=== PATIENT | female | born 1985 | race Hispanic/Latino ===

== ENCOUNTER 2024-01-27 15:16 | Observation (INO) | payer BC, OTHER ==
--- OUTSIDE RECORDS SUMMARY | 2024-01-27 15:22 | XMS REPORT | Continuity of Care Document ---
Author Name Unknown Address [address] [facility] [address] [place] [address] [facility] Address [address] [facility] [address] [place] [address] Care Team Providers Care Nurse Navigator Name Role Phone Unknown, Physician Primary Care Physician Unadiana Odell [facility] Attending Clinician Unavailable ENID CUENCA Attending Clinician Unavailable ENID CUENCA Attending Clinician Unavailable Enid Cuenca MD Attending Clinician [phone] Harlan Hanna Attending Clinician [phone] Lab, Myles Michel Attending Clinician Unavailable HARLAN FORBES Attending Clinician Unavailable CLYDE ESCOBAR Attending Clinician Unavailab le Doctor Unassigned, [place] Attending Clinician U YAJAIRA Dacosta Attending Clinician Unavailable Yajaira Alex Attending Clinician [phone] Lab, Ang Valentin Db Attending Clinician Unavailable Unknown, Attending Attending Clinician Unavailab LETY Mir Attending Clinician Unavailable Lety Escobar PA-C Attending Clinician [phone] HERBERT BAILEY Attending Clinician Unavailable Rose Johnson MD Attending Clinician [phone] ROSE JOHNSON Attending Clinician Unavailable Henrique Chowdhury CRNA Attending Clinician [phone] Betty SAAVEDRA, Garcia Pickering Attending Clinician [phone] Pob, Adc Lab Main Attending Clinician Akash Montesinos NP, Lex Attending Clinician [phone] LEX MONTESINOS Attending Clinician Edwin duffy P[facility], [facility] Attending Clinician UnaNadya Rogers MD Attending Clinician NADYA HEART Attending Clinician Hannah berna Lovell RN, Jess S Attending Clinician Jarod Perez MD Attending Clinician [phone] JAROD LOPES Attending Clinician Unavailable ROSE JOHNSON Admitting Clinician Unavailable Rose Johnson MD Admitting Clinician [phone] ELX MONTESINOS Admitting Clinician JAROD Ro Admitting Clinician Unavailable Payers Payer Name Policy Type Policy Number Effective Date Expirati on Date Source [facility] [id number] 2018 00:00:00 Problems Condition Name Condition Details Condition Category Status Onset Date Resolution Date Last Treatment Date Treating Clinician Comments Source Sleep disturbanc e Sleep disturbanc e Disease Active 09-13 00:00: 00 [facility] Insomnia, unspecifie d type Insomnia, unspecifie d type Disease Active 5- 00:00: 00 [facility] Dizziness Dizziness Disease Active 2-28 00:00: 00 [facility] Obesity (BMI 30-39.9) Obesity (BMI 30-39.9) Disease Active -13 00:00: 00 [facility] BMI 30.0-30.9, adult BMI 30.0-30.9, adult Disease Active 3-04 00:00: 00 [facility] Sciatic nerve pain, right Sciatic nerve pain, right Disease Active 3-04 00:00: 00 [facility] Dysuria Dysuria Disease Active 2-08 00:00: 00 [facility] Pap smear of cervix declined Pap smear of cervix declined Disease Active 2- 00:00: 00 [facility] Irregular menstrual cycle Irregular menstrual cycle Disease Active 2- 00:00: 00 [facility] Encounter for fertility preservati on counseling Encounter for fertility preservati on counseling Disease Active 2- 00:00: 00 [facility] COVID-19 virus infection COVID-19 virus infection Disease Active 08-10 00:00: 00 [facility] Runny nose Runny nose Disease Active 08-10 00:00: 00 [facility] Sore throat Sore throat Disease Active 08-10 00:00: 00 [facility] Insect sting allergy, current reaction Insect sting allergy, current reaction Problem Active [facility] Constipati on Constipati on Problem Active [facility] Migraine Migraine Problem Active [facility] Abdominal bloating Abdominal bloating Problem Active [facility] Allergic state Allergic state Problem Active [facility] Daytime somnolence Daytime somnolence Problem Active [facility] Repetitive intrusions of sleep Repetitive intrusions of sleep Problem Active [facility] Chronic fatigue Chronic fatigue Problem Active [facility] Asthma Asthma Problem Active [facility] Mixed hyperlipid emia Mixed hyperlipid emia Problem Active [facility] Iron deficiency anemia, unspecifie d iron deficiency anemia type Iron deficiency anemia, unspecifie d iron deficiency anemia type Problem Active [facility] Right ovarian cyst Right ovarian cyst Disease Resolve d 3-28 00:00: 00 2022-08-28 00:00:00 2022-08-28 17:22:11 Overview: Formattin g of this note might be different from the original. Added automatic ally from request for surgery [id number] [facility] Simple adnexal cyst greater than 5 cm in diameter in premenopau yadiel patient Simple adnexal cyst greater than 5 cm in diameter in premenopau yadiel patient Disease Resolve d 3-07 00:00: 00 2022-08-28 00:00:00 2022-08-28 17:22:07 [facility] Dermoid cyst of ovary, right Dermoid cyst of ovary, right Disease Resolve d 2022- 3-04 00:00: 00 2022-08-28 00:00:00 2022-08-28 17:22:24 [facility] Vulvar itching Vulvar itching Disease Resolve d 3-04 00:00: 00 2022-08-28 00:00:00 2022-08-28 17:22:13 [facility] Pain pelvic Pain pelvic Disease Resolve d 3-04 00:00: 00 2022-08-28 00:00:00 2022-08-28 17:22:12 [facility] Vaginal discharge Vaginal discharge Disease Resolve d 2-08 00:00: 00 2022-08-28 00:00:00 2022-08-28 17:22:13 [facility] Allergies, Adverse Reactions, Alerts Allergy Name Allergy Type Status Severity Reaction(s) Onset Date Inactive Date Treating Clinician Comments Source NO KNOWN ALLERGIE S Drug Class Active [facility] Social History Social Habit Start Date Stop Date Quantity Comments Source Gender identity [facility] Al[facility] beverage intake 2024-01-26 00:00:00 2024-01-26 00:00:00 Lifetime non-drinker (finding) [facility] History of Social function 2023-07-01 00:00:00 2023-07-01 00:00:00 [facility] Alcohol intake 2023-07-01 00:00:00 2023-07-01 00:00:00 Lifetime non-drinker (finding) [facility] Exposure to SARS-CoV-2 (event) 2022-08-30 00:00:00 2022-09-09 08:30:00 Not sure [facility] Tobacco use and exposure 2022-06-11 00:00:00 2022-06-11 00:00:00 Smokeless tobacco non-user [facility] Sex Assigned At 1985 00:00:00 1985 00:00:00 [facility] Smoking Status Start Date Stop Date Source Tobacco smoking consumption unknown [facility] Never smoked tobacco [facility] Medications Ordered Medication Name Filled Medication Name Start Date Stop Date Current Medication? Ordering Clinician Indication Dosage Frequency Signature (SIG) Comments Components Source methocarbam oL 500 mg tablet 01-25 00:00: 00 Yes [id number] 500mg Take 1 tablet by mouth 3 (three) times daily as needed for Pain (scale 7-10). [facility] cetirizine HCl/pseudoe phedrine (ALLERGY-D, CETIRIZINE, ORAL) 07-01 16:32: 12 07-01 00:00 :00 No Take by mouth. [facility] dexamethaso ne sod phos PF injection 10 mg 2022-05 17:45: 00 04-16 16:57 :00 No [id number] 10mg [facility] ibuprofen 600 mg tablet 2022-05 00:00: 00 Yes [id number] 600mg Take 1 tablet by mouth in the morning and 1 tablet at noon and 1 tablet in the evening. Take with meals. [facility] albuterol 90 mcg/actuati on inhaler 2022-05 00:00: 00 07-01 00:00 :00 No [id number] 2{puff} Inhale 2 Puffs every 6 (six) hours as needed for Wheezing or Shortness of Breath. [facility] Guaifenesin 1,200 mg tablet 2022-05 00:00: 00 07-01 00:00 :00 No [id number] 1200mg Take 1 tablet by mouth in the morning and 1 tablet in the evening. [facility] pseudoephed rine HCl (SUDAFED ORAL) 12-09 17:00: 48 12-09 00:00 :00 No Take by mouth. [facility] benzonatate (TESSALON PERLES) 100 mg capsule 12-09 00:00: 00 07-01 00:00 :00 No [id number] Take 1-2 capsules three times a day as needed for cough. [facility] bromphenira mine-pseudo ephedrine-D M (BROMFED DM) 2-30-10 mg/5 mL syrup 8-08 00:00: 00 07-01 00:00 :00 No [id number] 10mL Take 10 mL by mouth 4 (four) times daily as needed for Congestion /Allergies . [facility] cetirizine HCl/pseudoe phedrine (ALLERGY-D, CETIRIZINE, ORAL) 509 15:58: 45 Yes Take by mouth. [facility] pseudoephed rine HCl (SUDAFED ORAL) 08-28 15:37: 59 Yes Take by mouth. [facility] lactated ringers IV infusion 1,000 mL 08-14 18:45: 00 Yes 1000mL at 75 mL/hr, 1,000 mL, IV Infusion, CONTINUOUS , Starting on Yasmin 08/14/22 at 1345, Until Discontinu ed, Routine, PACU [facility] HYDROcodone -acetaminop hen (NORCO 5) 5-325 mg tablet 1 tablet 08-14 18:45: 00 08-14 20:07 :00 No 1{tbl} 1 tablet, Oral, ONCE, 1 dose, On Yasmin 08/14/22 at 1345, Routine, PACU [facility] FENTanyl PF (SUBLIMAZE (PF)) injection 25 mcg 08-14 18:41: 29 Yes 25ug 25 mcg, Slow IV Push, Q5MIN PRN, 4 doses, Starting on Yasmin 08/14/22 at 1341, Until Discontinu ed, Routine, Pain (scale 4-6), PACU [facility] HYDROmorphO ne (DILAUDID) injection 0.2 mg 08-14 18:41: 29 Yes .2mg 0.2 mg, Slow IV Push, Q5MIN PRN, 10 doses, Starting on Yasmin 08/14/22 at 1341, Until Discontinu ed, Routine, Pain (scale 7-10), PACU
Us e approved by (Faculty): PACU USE -ANESTHESI A SERVICE-HY DROMORPHON E INJECTIONS [facility] ondansetron (ZOFRAN (PF)) injection 4 mg 08-14 18:41: 29 08-14 21:07 :00 No 4mg 4 mg, Slow IV Push, PRN, 1 dose, Starting on Yasmin 08/14/22 at 1341, Until Discontinu ed, Routine, Nausea and Vomiting (N/V), PACU [facility] sugammadex (BRIDION) injection 08-14 18:10: 00 08-14 18:22 :33 No IV Push, ONCE INTRA PROCEDURE, Starting on Yasmin 08/14/22 at 1310, Until Yasmin 08/14/22 at 1322, Routine, Intra-op [facility] ketorolac (TORADOL) injection 08-14 17:43: 00 08-14 18:22 :33 No Slow IV Push, ONCE INTRA PROCEDURE, Starting on Yasmin 08/14/22 at 1243, Until Yasmin 08/14/22 at 1322, Routine, Intra-op [facility] pseudoephed rine HCl (SUDAFED ORAL) 08-14 17:19: 09 Yes Take by mouth. [facility] acetaminoph en ADULT (OFIRMEV) injection 08-14 17:10: 00 08-14 18:22 :33 No IV Infusion, Administer over 15 Minutes, ONCE INTRA PROCEDURE, Starting on Yasmin 08/14/22 at 1210, Until Yasmin 08/14/22 at 1322, Routine, Intra-op [facility] PHENYLephri ne 1000 mcg/10 mL in 0.9% NaCl syringe 08-14 16:27: 00 08-14 18:22 :33 No Slow IV Push, ONCE INTRA PROCEDURE, Starting on Yasmin 08/14/22 at 1127, Until Yasmin 08/14/22 at 1322, Routine, Intra-op [facility] HYDROmorphO ne (DILAUDID) injection 08-14 15:45: 00 08-14 18:22 :33 No Intravenou s, ONCE INTRA PROCEDURE, Starting on Yasmin 08/14/22 at 1045, Until Yasmin 08/14/22 at 1322, Routine, Intra-op [facility] dexmedeTOMI Dine (PRECEDEX) injection 08-14 15:38: 00 08-14 18:22 :33 No Intravenou s, ONCE INTRA PROCEDURE, Starting on Yasmin 08/14/22 at 1038, Until Ysamin 08/14/22 at 1322, Routine, Intra-op [facility] dexamethaso ne (DECADRON PHOSPHATE) injection 08-14 15:30: 00 08-14 18:22 :33 No IV Push, ONCE INTRA PROCEDURE, Starting on Yasmin 08/14/22 at 1030, Until Yasmin 08/14/22 at 1322, Routine, Intra-op [facility] rocuronium (ZEMURON) injection 08-14 15:17: 00 08-14 18:22 :33 No IV Push, ONCE INTRA PROCEDURE, Starting on Yasmin 08/14/22 at 1017, Until Yasmin 08/14/22 at 1322, Routine, Intra-op [facility] lidocaine 1% (XYLOCAINE) 100 mg/10 mL (1 %) injection 08-14 15:17: 00 08-14 18:22 :33 No Intravenou s, ONCE INTRA PROCEDURE, Starting on Yasmin 08/14/22 at 1017, Until Yasmin 08/14/22 at 1322, Routine, Intra-op [facility] propofoL IV infusion 08-14 15:16: 00 08-14 18:22 :33 No Intravenou s, ONCE INTRA PROCEDURE, Starting on Yasmin 08/14/22 at 1016, Until Yasmin 08/14/22 at 1322, Routine, Intra-op [facility] FENTanyl PF (SUBLIMAZE (PF)) injection 08-14 15:13: 00 08-14 18:22 :33 No Intravenou s, ONCE INTRA PROCEDURE, Starting on Yasmin 08/14/22 at 1013, Until Yasmin 08/14/22 at 1322, Routine, Intra-op [facility] ondansetron (ZOFRAN (PF)) injection 08-14 15:07: 00 08-14 18:22 :33 No Slow IV Push, ONCE INTRA PROCEDURE, Starting on Yasmin 08/14/22 at 1007, Until Yasmin 08/14/22 at 1322, Routine, Intra-op [facility] midazolam (VERSED) injection 08-14 15:07: 00 08-14 18:22 :33 No IV Push, ONCE INTRA PROCEDURE, Starting on Yasmin 08/14/22 at 1007, Until Yasmin 08/14/22 at 1322, Routine, Intra-op [facility] pseudoephed rine HCl (SUDAFED ORAL) 08-14 14:23: 21 Yes Take by mouth. [facility] bupivacaine (preserv free) (SENSORCAIN E MPF) 0.25 % (2.5 mg/mL) injection 08-14 13:07: 00 08-14 18:32 :05 No PRN, Starting on Yasmin 08/14/22 at 0807, Until Yasmin 08/14/22 at 1332, Routine, Intra-op [facility] sodium chloride 0.9 % irrigation solution 08-14 13:06: 00 08-14 18:32 :05 No PRN, Starting on Yasmin 08/14/22 at 0806, Until Yasmin 08/14/22 at 1332, Intra-op [facility] lactated ringers IV infusion 1,000 mL 08-14 12:00: 00 08-14 12:20 :00 No 1000mL at 42 mL/hr, 1,000 mL, IV Infusion, ONCE, 1 dose, On Yasmin 08/14/22 at 0700, Routine, DSU Pre-op [facility] lactated ringers IV infusion 08-14 11:56: 00 08-14 18:22 :33 No IV Infusion, CONTINUOUS PRN, Starting on Yasmin 08/14/22 at 0656, Until Yasmin 08/14/22 at 1322, Routine, Intra-op [facility] pseudoephed rine HCl (SUDAFED ORAL) 08-14 06:48: 45 Yes Take by mouth. [facility] ibuprofen 800 mg tablet 08-14 00:00: 00 08-28 00:00 :00 No [id number] 800mg Take 1 tablet by mouth every 8 (eight) hours as needed for Pain (scale 1-3) or Alternate with [place] for pain scale 4-6. [facility] HYDROcodone -acetaminop hen 5-325 mg tablet 08-14 00:00: 00 08-28 00:00 :00 No [id number] 1{tbl} Take 1 tablet by mouth every 6 (six) hours as needed for Pain (scale 7-10) or Pain (scale 4-6). Indication s: acute pain [facility] ondansetron (ZOFRAN) 4 mg tablet 08-14 00:00: 00 08-28 00:00 :00 No [id number] 4mg Take 1 tablet by mouth every 8 (eight) hours as needed for Nausea and Vomiting (N/V). Indication s: nausea and vomiting after surgery [facility] pseudoephed rine HCl (SUDAFED ORAL) 08-07 14:13: 24 Yes Take by mouth. [facility] docosahexae noic acid/epa (FISH OIL ORAL) 08-07 09:44: 52 08-07 00:00 :00 No Take by mouth. [facility] TUMERIC-GIN G-OLIVE-ORE G-CAPRYL ORAL 08-07 09:44: 43 08-07 00:00 :00 No Take by mouth. [facility] pseudoephed rine HCl (SUDAFED ORAL) 08-07 09:30: 45 Yes Take by mouth. [facility] fluticasone propionate 50 mcg/actuati on nasal spray 08-07 00:00: 00 07-01 00:00 :00 No [id number] 1{spray } Use 1 Romance in each nostril in the morning. [facility] azelastine 137 mcg (0.1 %) nasal spray 08-07 00:00: 00 07-01 00:00 :00 No [id number] 1{spray } Use 1 Romance in each nostril in the morning and 1 Romance in the evening. Use in each nostril as directed [facility] benzonatate (TESSALON PERLES) 100 mg capsule 08-07 00:00: 00 12-09 00:00 :00 No [id number] Take 1-2 capsules three times a day as needed for cough. [facility] TUMERIC-GIN G-OLIVE-ORE G-CAPRYL ORAL 07-29 09:07: 41 Yes Take by mouth. [facility] gadobenate dimeglumine (MULTIHANCE -15 mL) injection 0.2 mL/kg 07-22 20:45: 00 07-22 20:39 :00 No [id number] 819619 .2mL/kg 0.2 mL/kg, Intravenou s, ONCE, 1 dose, On Thu07/22/22 at 1545, Routine [facility] triamcinolo ne acetonide 0.1 % cream 07-05 00:00: 00 08-07 00:00 :00 No [id number] Apply to area(s) 2 (two) times daily. [facility] terconazole 80 mg vaginal suppository 2-10 00:00: 00 06-17 05:59 :00 No [id number] 80mg Insert 1 Suppositor y into vagina at bedtime for 3 days. [facility] chlorhexidi ne (Peridex) 0.12 % solution 8-25 00:00: 00 01-10 04:59 :00 No [id number] 15mL Use 15 mL in the mouth or throat if needed for wound care for up to 14 days. [facility] amoxicillin -clavulanat e (Augmentin) 875-125 MG tablet 12-26 00:00: 00 01-06 04:59 :00 No [id number] 1{tbl} Q.5D Take 1 tablet by mouth 2 (two) times a day for 10 days. [facility] acetaminoph en 650 mg CR tablet 08-10 00:00: 00 Yes [id number] 650mg Take 1 tablet by mouth every 8 (eight) hours as needed for Pain or Fever. [facility] nystatin/ma alox/diphen hydrAMINE/l idocaine 2 % viscous 1:1:1:1 Susp suspension 08-10 00:00: 00 Yes [id number] 5mL Take 5 mL by mouth 4 (four) times daily as needed (Sore throat). Gargle and spit, do not swallow [facility] fluticasone propionate 50 mcg/actuati on nasal spray 08-10 00:00: 00 08-07 00:00 :00 No [id number] 1{spray } Use 1 Romance in each nostril daily. [facility] nystatin/ma alox/diphen hydrAMINE/l idocaine 2 % viscous 1:1:1:1 Susp suspension 08-10 00:00: 00 08-07 00:00 :00 No [id number] 5mL Take 5 mL by mouth 4 (four) times daily as needed (Sore throat). Gargle and spit, do not swallow [facility] Immunizations Ordered Immunization Name Filled Immunization Name Date Status Comments Source TDAP 2022-09-09 00:00:00 Completed [facility] TDAP 2022-09-09 00:00:00 Completed [facility] TDAP 2022-09-09 00:00:00 Completed [facility] TDAP 2022-09-09 00:00:00 Completed [facility] TDAP 2022-09-09 00:00:00 Completed [facility] TDAP 2022-09-09 00:00:00 Completed [facility] TDAP 2022-09-09 00:00:00 Completed [facility] DTP 2002-11-25 00:00:00 Completed [facility] DTP 2002-11-25 00:00:00 Completed [facility] DTP 2002-11-25 00:00:00 Completed [facility] DTP 2002-11-25 00:00:00 Completed [facility] MMR 1999 00:00:00 Completed [facility] MMR 1999 00:00:00 Completed [facility] MMR 1999 00:00:00 Completed [facility] MMR 1999 00:00:00 Completed [facility] Hep B, Adol or Pedi Dosage 1998-05-14 00:00:00 Completed [facility] Hep B, Adol or Pedi Dosage 1998-05-14 00:00:00 Completed [facility] Hep B, Adol or Pedi Dosage 1998-05-14 00:00:00 Completed [facility] Hep B, Adol or Pedi Dosage 1998-05-14 00:00:00 Completed [facility] Hep B, Adol or Pedi Dosage 1998-01-15 00:00:00 Completed [facility] Hep B, Adol or Pedi Dosage 1998-01-15 00:00:00 Completed [facility] Hep B, Adol or Pedi Dosage 1998-01-15 00:00:00 Completed [facility] Hep B, Adol or Pedi Dosage 1998-01-15 00:00:00 Completed [facility] Hep B, Adol or Pedi Dosage 1997-11-14 00:00:00 Completed [facility] Hep B, Adol or Pedi Dosage 1997-11-14 00:00:00 Completed [facility] Hep B, Adol or Pedi Dosage 1997-11-14 00:00:00 Completed [facility] Hep B, Adol or Pedi Dosage 1997-11-14 00:00:00 Completed [facility] DTP 1991-12-14 00:00:00 Completed [facility] Polio (IPV/OPV) 1991-12-14 00:00:00 Completed [facility] DTP 1991-12-14 00:00:00 Completed [facility] Polio (IPV/OPV) 1991-12-14 00:00:00 Completed [facility] DTP 1991-12-14 00:00:00 Completed [facility] Polio (IPV/OPV) 1991-12-14 00:00:00 Completed [facility] DTP 1991-12-14 00:00:00 Completed [facility] Polio (IPV/OPV) 1991-12-14 00:00:00 Completed [facility] DTP 1990-02-17 00:00:00 Completed [facility] Polio (IPV/OPV) 1990-02-17 00:00:00 Completed [facility] DTP 1990-02-17 00:00:00 Completed [facility] Polio (IPV/OPV) 1990-02-17 00:00:00 Completed [facility] DTP 1990-02-17 00:00:00 Completed [facility] Polio (IPV/OPV) 1990-02-17 00:00:00 Completed [facility] DTP 1990-02-17 00:00:00 Completed [facility] Polio (IPV/OPV) 1990-02-17 00:00:00 Completed [facility] HIB 3 Dose Schedule 1989-12-21 00:00:00 Completed [facility] HIB 3 Dose Schedule 1989-12-21 00:00:00 Completed [facility] HIB 3 Dose Schedule 1989-12-21 00:00:00 Completed [facility] HIB 3 Dose Schedule 1989-12-21 00:00:00 Completed [facility] MMR 1989-03-20 00:00:00 Completed [facility] MMR 1989-03-20 00:00:00 Completed [facility] MMR 1989-03-20 00:00:00 Completed [facility] MMR 1989-03-20 00:00:00 Completed [facility] DTP 1988-06-20 00:00:00 Completed [facility] Polio (IPV/OPV) 1988-06-20 00:00:00 Completed [facility] DTP 1988-06-20 00:00:00 Completed [facility] Polio (IPV/OPV) 1988-06-20 00:00:00 Completed [facility] DTP 1988-06-20 00:00:00 Completed [facility] Polio (IPV/OPV) 1988-06-20 00:00:00 Completed [facility] DTP 1988-06-20 00:00:00 Completed [facility] Polio (IPV/OPV) 1988-06-20 00:00:00 Completed [facility] DTP 1988-04-14 00:00:00 Completed [facility] Polio (IPV/OPV) 1988-04-14 00:00:00 Completed [facility] DTP 1988-04-14 00:00:00 Completed [facility] Polio (IPV/OPV) 1988-04-14 00:00:00 Completed [facility] DTP 1988-04-14 00:00:00 Completed [facility] Polio (IPV/OPV) 1988-04-14 00:00:00 Completed [facility] DTP 1988-04-14 00:00:00 Completed [facility] Polio (IPV/OPV) 1988-04-14 00:00:00 Completed [facility] DTP 1988-02-19 00:00:00 Completed [facility] Polio (IPV/OPV) 1988-02-19 00:00:00 Completed [facility] DTP 1988-02-19 00:00:00 Completed [facility] Polio (IPV/OPV) 1988-02-19 00:00:00 Completed [facility] DTP 1988-02-19 00:00:00 Completed [facility] Polio (IPV/OPV) 1988-02-19 00:00:00 Completed [facility] DTP 1988-02-19 00:00:00 Completed [facility] Polio (IPV/OPV) 1988-02-19 00:00:00 Completed [facility] DTP Unknown Completed [facility] HIB 3 Dose Schedule Unknown Completed [facility] Hep B, Adol or Pedi Dosage Unknown Completed [facility] Hep B, Adol or Pedi Dosage Unknown Completed [facility] Hep B, Adol or Pedi Dosage Unknown Completed [facility] Polio (IPV/OPV) Unknown Completed [facility] Polio (IPV/OPV) Unknown Completed [facility] Polio (IPV/OPV) Unknown Completed [facility] Polio (IPV/OPV) Unknown Completed [facility] Polio (IPV/OPV) Unknown Completed [facility] TDAP Unknown Completed [facility] MMR Unknown Completed [facility] MMR Unknown Completed [facility] DTP Unknown Completed [facility] DTP Unknown Completed [facility] DTP Unknown Completed [facility] DTP Unknown Completed [facility] DTP Unknown Completed [facility] DTP Unknown Completed [facility] HIB 3 Dose Schedule Unknown Completed [facility] Hep B, Adol or Pedi Dosage Unknown Completed [facility] Hep B, Adol or Pedi Dosage Unknown Completed [facility] Hep B, Adol or Pedi Dosage Unknown Completed [facility] Polio (IPV/OPV) Unknown Completed [facility] Polio (IPV/OPV) Unknown Completed [facility] Polio (IPV/OPV) Unknown Completed [facility] Polio (IPV/OPV) Unknown Completed [facility] Polio (IPV/OPV) Unknown Completed [facility] TDAP Unknown Completed [facility] MMR Unknown Completed [facility] MMR Unknown Completed [facility] DTP Unknown Completed [facility] DTP Unknown Completed [facility] DTP Unknown Completed [facility] DTP Unknown Completed [facility] DTP Unknown Completed [facility] DTP Unknown Completed [facility] HIB 3 Dose Schedule Unknown Completed [facility] Hep B, Adol or Pedi Dosage Unknown Completed [facility] Hep B, Adol or Pedi Dosage Unknown Completed [facility] Hep B, Adol or Pedi Dosage Unknown Completed [facility] Polio (IPV/OPV) Unknown Completed [facility] Polio (IPV/OPV) Unknown Completed [facility] Polio (IPV/OPV) Unknown Completed [facility] Polio (IPV/OPV) Unknown Completed [facility] Polio (IPV/OPV) Unknown Completed [facility] TDAP Unknown Completed [facility] MMR Unknown Completed [facility] MMR Unknown Completed [facility] DTP Unknown Completed [facility] DTP Unknown Completed [facility] DTP Unknown Completed [facility] DTP Unknown Completed [facility] DTP Unknown Completed [facility] DTP Unknown Completed [facility] HIB 3 Dose Schedule Unknown Completed [facility] Hep B, Adol or Pedi Dosage Unknown Completed [facility] Hep B, Adol or Pedi Dosage Unknown Completed [facility] Hep B, Adol or Pedi Dosage Unknown Completed [facility] Polio (IPV/OPV) Unknown Completed [facility] Polio (IPV/OPV) Unknown Completed [facility] Polio (IPV/OPV) Unknown Completed [facility] Polio (IPV/OPV) Unknown Completed [facility] Polio (IPV/OPV) Unknown Completed [facility] TDAP Unknown Completed [facility] MMR Unknown Completed [facility] MMR Unknown Completed [facility] DTP Unknown Completed [facility] DTP Unknown Completed [facility] DTP Unknown Completed [facility] DTP Unknown Completed [facility] DTP Unknown Completed [facility] DTP Unknown Completed [facility] HIB 3 Dose Schedule Unknown Completed [facility] Hep B, Adol or Pedi Dosage Unknown Completed [facility] Hep B, Adol or Pedi Dosage Unknown Completed [facility] Hep B, Adol or Pedi Dosage Unknown Completed [facility] Polio (IPV/OPV) Unknown Completed [facility] Polio (IPV/OPV) Unknown Completed [facility] Polio (IPV/OPV) Unknown Completed [facility] Polio (IPV/OPV) Unknown Completed [facility] Polio (IPV/OPV) Unknown Completed [facility] TDAP Unknown Completed [facility] MMR Unknown Completed [facility] MMR Unknown Completed [facility] DTP Unknown Completed [facility] DTP Unknown Completed [facility] DTP Unknown Completed [facility] DTP Unknown Completed [facility] DTP Unknown Completed [facility] DTP Unknown Completed [facility] HIB 3 Dose Schedule Unknown Completed [facility] Hep B, Adol or Pedi Dosage Unknown Completed [facility] Hep B, Adol or Pedi Dosage Unknown Completed [facility] Hep B, Adol or Pedi Dosage Unknown Completed [facility] Polio (IPV/OPV) Unknown Completed [facility] Polio (IPV/OPV) Unknown Completed [facility] Polio (IPV/OPV) Unknown Completed [facility] Polio (IPV/OPV) Unknown Completed [facility] Polio (IPV/OPV) Unknown Completed [facility] TDAP Unknown Completed [facility] MMR Unknown Completed [facility] MMR Unknown Completed [facility] DTP Unknown Completed [facility] DTP Unknown Completed [facility] DTP Unknown Completed [facility] DTP Unknown Completed [facility] DTP Unknown Completed [facility] DTP Unknown Completed [facility] HIB 3 Dose Schedule Unknown Completed [facility] Hep B, Adol or Pedi Dosage Unknown Completed [facility] Hep B, Adol or Pedi Dosage Unknown Completed [facility] Hep B, Adol or Pedi Dosage Unknown Completed [facility] Polio (IPV/OPV) Unknown Completed [facility] Polio (IPV/OPV) Unknown Completed [facility] Polio (IPV/OPV) Unknown Completed [facility] Polio (IPV/OPV) Unknown Completed [facility] Polio (IPV/OPV) Unknown Completed [facility] TDAP Unknown Completed [facility] MMR Unknown Completed [facility] DTP Unknown Completed [facility] HIB 3 Dose Schedule Unknown Completed [facility] Hep B, Adol or Pedi Dosage Unknown Completed [facility] Polio (IPV/OPV) Unknown Completed [facility] TDAP Unknown Completed [facility] MMR Unknown Completed [facility] DTP Unknown Completed [facility] HIB 3 Dose Schedule Unknown Completed [facility] Hep B, Adol or Pedi Dosage Unknown Completed [facility] Polio (IPV/OPV) Unknown [facility] Completed [facility] MMR Unknown Completed [facility] DTP Unknown Completed [facility] HIB 3 Dose Schedule Unknown Completed [facility] Hep B, Adol or Pedi Dosage Unknown Completed [facility] Polio (IPV/OPV) Unknown Completed [facility] TDAP Unknown Completed [facility] MMR Unknown Completed [facility] DTP Unknown Completed [facility] HIB 3 Dose Schedule Unknown Completed [facility] Hep B, Adol or Pedi Dosage Unknown Completed [facility] Polio (IPV/OPV) Unknown Completed [facility] MMR Unknown Completed [facility] MMR Unknown Completed [facility] DTP Unknown Completed [facility] DTP Unknown Completed [facility] DTP Unknown Completed [facility] DTP Unknown Completed [facility] DTP Unknown Completed [facility] DTP Unknown Completed [facility] HIB 3 Dose Schedule Unknown Completed [facility] Hep B, Adol or Pedi Dosage Unknown Completed [facility] Hep B, Adol or Pedi Dosage Unknown Completed [facility] Hep B, Adol or Pedi Dosage Unknown Completed [facility] Polio (IPV/OPV) Unknown Completed [facility] Polio (IPV/OPV) Unknown Completed [facility] Polio (IPV/OPV) Unknown Completed [facility] Polio (IPV/OPV) Unknown Completed [facility] Polio (IPV/OPV) Unknown Completed [facility] MMR Unknown Completed [facility] MMR Unknown Completed [facility] DTP Unknown Completed [facility] DTP Unknown Completed [facility] DTP Unknown Completed [facility] DTP Unknown Completed [facility] DTP Unknown Completed [facility] DTP Unknown Completed [facility] HIB 3 Dose Schedule Unknown Completed [facility] Hep B, Adol or Pedi Dosage Unknown Completed [facility] Hep B, Adol or Pedi Dosage Unknown Completed [facility] Hep B, Adol or Pedi Dosage Unknown Completed [facility] Polio (IPV/OPV) Unknown Completed [facility] Polio (IPV/OPV) Unknown Completed [facility] Polio (IPV/OPV) Unknown Completed [facility] Polio (IPV/OPV) Unknown Completed [facility] Polio (IPV/OPV) Unknown Completed [facility] TDAP Unknown Completed [facility] MMR Unknown Completed [facility] MMR Unknown Completed [facility] DTP Unknown Completed [facility] DTP Unknown Completed [facility] DTP Unknown Completed [facility] DTP Unknown Completed [facility] DTP Unknown Completed [facility] DTP Unknown Completed [facility] HIB 3 Dose Schedule Unknown Completed [facility] Hep B, Adol or Pedi Dosage Unknown Completed [facility] Hep B, Adol or Pedi Dosage Unknown Completed [facility] Hep B, Adol or Pedi Dosage Unknown Completed [facility] Polio (IPV/OPV) Unknown Completed [facility] Polio (IPV/OPV) Unknown Completed [facility] Polio (IPV/OPV) Unknown Completed [facility] Polio (IPV/OPV) Unknown Completed [facility] Polio (IPV/OPV) Unknown Completed [facility] TDAP Unknown Completed [facility] MMR Unknown Completed [facility] MMR Unknown Completed [facility] DTP Unknown Completed [facility] DTP Unknown Completed [facility] DTP Unknown Completed [facility] DTP Unknown Completed [facility] DTP Unknown Completed [facility] DTP Unknown Completed [facility] HIB 3 Dose Schedule Unknown Completed [facility] Hep B, Adol or Pedi Dosage Unknown Completed [facility] Hep B, Adol or Pedi Dosage Unknown Completed [facility] Hep B, Adol or Pedi Dosage Unknown Completed [facility] Polio (IPV/OPV) Unknown Completed [facility] Polio (IPV/OPV) Unknown Completed [facility] Polio (IPV/OPV) Unknown Completed [facility] Polio (IPV/OPV) Unknown Completed [facility] Polio (IPV/OPV) Unknown Completed [facility] TDAP Unknown Completed [facility] MMR Unknown Completed [facility] MMR Unknown Completed [facility] DTP Unknown Completed [facility] DTP Unknown Completed [facility] DTP Unknown Completed [facility] DTP Unknown Completed [facility] DTP Unknown Completed [facility] Vital Signs Vital Name Observation Time Observation Value Comments S ource Systolic blood pressure 2024-01-26 16:50:00 109 mm[Hg] [facility] Diastolic blood pressure 2024-01-26 16:50:00 69 mm[Hg] [facility] Heart rate 2024-01-26 16:50:00 81 /min [facility] Body temperature 2024-01-26 16:50:00 36.89 Kierra [facility] Respiratory rate 2024-01-26 16:50:00 18 /min [facility] Body height 2024-01-26 16:50:00 162.6 cm [facility] Body weight 2024-01-26 16:50:00 80.287 kg [facility] BMI 2024-01-26 16:50:00 30.38 kg/m2 [facility] Oxygen saturation in Arterial blood by Pulse oximetry 2024-01-26 16:50:00 98 /min [facility] Systolic blood pressure 2023-09-14 18:34:00 118 mm[Hg] [facility] Diastolic blood pressure 2023-09-14 18:34:00 80 mm[Hg] [facility] Heart rate 2023-09-14 18:34:00 98 /min [facility] Body temperature 2023-09-14 18:34:00 36.72 Kierra [facility] Respiratory rate 2023-09-14 18:34:00 18 /min [facility] Body height 2023-09-14 18:34:00 158.8 cm [facility] Body weight 2023-09-14 18:34:00 78.155 kg [facility] BMI 2023-09-14 18:34:00 31.01 kg/m2 [facility] Oxygen saturation in Arterial blood by Pulse oximetry 2023-09-14 18:34:00 98 /min [facility] Systolic blood pressure 2023-07-01 22:31:00 109 mm[Hg] [facility] Diastolic blood pressure 2023-07-01 22:31:00 75 mm[Hg] [facility] Heart rate 2023-07-01 22:31:00 69 /min [facility] Body temperature 2023-07-01 22:31:00 36.72 Kierra [facility] Respiratory rate 2023-07-01 22:31:00 18 /min [facility] Body height 2023-07-01 22:31:00 158.8 cm [facility] Body weight 2023-07-01 22:31:00 79.516 kg [facility] BMI 2023-07-01 22:31:00 31.55 kg/m2 [facility] Oxygen saturation in Arterial blood by Pulse oximetry 2023-07-01 22:31:00 99 /min [facility] Systolic blood pressure 2023-04-16 16:29:00 111 mm[Hg] [facility] Diastolic blood pressure 2023-04-16 16:29:00 76 mm[Hg] [facility] Heart rate 2023-04-16 16:29:00 92 /min [facility] Body temperature 2023-04-16 16:29:00 36.83 Kierra [facility] Respiratory rate 2023-04-16 16:29:00 15 /min [facility] Body height 2023-04-16 16:29:00 157.5 cm [facility] 2023-04-16 16:29:00 77.622 kg [facility] BMI 2023-04-16 16:29:00 31.30 kg/m2 [facility] Oxygen saturation in Arterial blood by Pulse oximetry 2023-04-16 16:29:00 98 /min [facility] Systolic blood pressure 2022-12-09 21:28:00 116 mm[Hg] [facility] Diastolic blood pressure 2022-12-09 21:28:00 77 mm[Hg] [facility] Heart rate 2022-12-09 21:28:00 67 /min [facility] Body height 2022-12-09 21:28:00 157.5 cm [facility] Body weight 2022-12-09 21:28:00 79.516 kg [facility] BMI 2022-12-09 21:28:00 32.06 kg/m2 [facility] Oxygen saturation in Arterial blood by Pulse oximetry 2022-12-09 21:28:00 99 /min [facility] Systolic blood pressure 2022-09-09 20:59:00 112 mm[Hg] [facility] Diastolic blood pressure 2022-09-09 20:59:00 75 mm[Hg] [facility] Heart rate 2022-09-09 20:59:00 80 /min [facility] Body height 2022-09-09 20:59:00 157.5 cm [facility] Body weight 2022-09-09 20:59:00 77.338 kg [facility] BMI 2022-09-09 20:59:00 31.18 kg/m2 [facility] Oxygen saturation in Arterial blood by Pulse oximetry 2022-09-09 20:59:00 97 /min [facility] Systolic blood pressure 2022-08-28 20:36:00 114 mm[Hg] [facility] Diastolic blood pressure 2022-08-28 20:36:00 76 mm[Hg] [facility] Heart rate 2022-08-28 20:36:00 81 /min [facility] Body temperature 2022-08-28 20:36:00 36.78 Kierra [facility] Respiratory rate 2022-08-28 20:36:00 18 /min [facility] Body height 2022-08-28 20:36:00 157.5 cm [facility] Body weight 2022-08-28 20:36:00 78.019 kg [facility] BMI 2022-08-28 20:36:00 31.46 kg/m2 [facility] Systolic blood pressure 2022-08-14 20:29:00 114 mm[Hg] [facility] Diastolic blood pressure 2022-08-14 20:29:00 62 mm[Hg] [facility] Respiratory rate 2022-08-14 20:29:00 14 /min [facility] Oxygen saturation in Arterial blood by Pulse oximetry 2022-08-14 20:29:00 96 /min [facility] Heart rate 2022-08-14 20:15:00 96 /min [facility] Body temperature 2022-08-14 18:30:00 36.78 Kierra [facility] Body height 2022-08-07 19:00:00 157.5 cm [facility] Body weight 2022-08-07 19:00:00 78.019 kg [facility] BMI 2022-08-07 19:00:00 31.46 kg/m2 [facility] Respiratory rate 2022-08-14 18:19:00 18 /min [facility] Systolic blood pressure 2022-08-14 12:03:00 145 mm[Hg] [facility] Diastolic blood pressure 2022-08-14 12:03:00 83 mm[Hg] [facility] Heart rate 2022-08-14 12:03:00 93 /min [facility] Body temperature 2022-08-14 12:03:00 36.67 Kierra [facility] Respiratory rate 2022-08-14 12:03:00 16 /min [facility] Oxygen saturation in Arterial blood by Pulse oximetry 2022-08-14 12:03:00 100 /min [facility] Body height 2022-08-07 19:00:00 157.5 cm [facility] Body weight 2022-08-07 19:00:00 78.019 kg [facility] BMI 2022-08-07 19:00:00 31.46 kg/m2 [facility] Systolic blood pressure 2022-08-07 14:19:00 104 mm[Hg] [facility] Diastolic blood pressure 2022-08-07 14:19:00 71 mm[Hg] [facility] Heart rate 2022-08-07 14:19:00 75 /min [facility] Body temperature 2022-08-07 14:19:00 36.44 Kierra [facility] Body height 2022-08-07 14:19:00 158.8 cm [facility] Body weight 2022-08-07 14:19:00 78.019 kg [facility] BMI 2022-08-07 14:19:00 30.96 kg/m2 [facility] Oxygen saturation in Arterial blood by Pulse oximetry 2022-08-07 14:19:00 98 /min [facility] Systolic blood pressure 2022-07-29 14:08:00 125 mm[Hg] [facility] Diastolic blood pressure 2022-07-29 14:08:00 83 mm[Hg] [facility] Heart rate 2022-07-29 14:08:00 82 /min [facility] Body temperature 2022-07-29 14:08:00 36.67 Kierra [facility] Respiratory rate 2022-07-29 14:08:00 16 /min [facility] Body height 2022-07-29 14:08:00 157.5 cm [facility] Body weight 2022-07-29 14:08:00 76.975 kg [facility] BMI 2022-07-29 14:08:00 31.04 kg/m2 [facility] Oxygen saturation in Arterial blood by Pulse oximetry 2022-07-29 14:08:00 98 /min [facility] Systolic blood pressure 2022-07-08 14:07:00 127 mm[Hg] [facility] Diastolic blood pressure 2022-07-08 14:07:00 81 mm[Hg] [facility] Heart rate 2022-07-08 14:07:00 65 /min [facility] Body temperature 2022-07-08 14:07:00 36.5 Kirera [facility] Respiratory rate 2022-07-08 14:07:00 18 /min [facility] Body height 2022-07-08 14:07:00 157.5 cm [facility] Body weight 2022-07-08 14:07:00 77.293 kg [facility] BMI 2022-07-08 14:07:00 31.17 kg/m2 [facility] Systolic blood pressure 2022-07-04 19:32:00 116 mm[Hg] [facility] Diastolic blood pressure 2022-07-04 19:32:00 77 mm[Hg] [facility] Heart rate 2022-07-04 19:32:00 75 /min [facility] Res[facility] rate 2022-07-04 19:32:00 18 /min [facility] Body height 2022-07-04 19:32:00 157.5 cm [facility] Body weight 2022-07-04 19:32:00 76.658 kg [facility] BMI 2022-07-04 19:32:00 30.91 kg/m2 [facility] Systolic blood pressure 2022-06-27 14:39:00 115 mm[Hg] [facility] Diastolic blood pressure 2022-06-27 14:39:00 78 mm[Hg] [facility] Heart rate 2022-06-27 14:39:00 79 /min [facility] Body temperature 2022-06-27 14:39:00 37 Kierra [facility] Respiratory rate 2022-06-27 14:39:00 18 /min [facility] Body height 2022-06-27 14:39:00 158.8 cm [facility] Body weight 2022-06-27 14:39:00 76.658 kg [facility] BMI 2022-06-27 14:39:00 30.42 kg/m2 [facility] Oxygen saturation in Arterial blood by Pulse oximetry 2022-06-27 14:39:00 98 /min [facility] Systolic blood pressure 2022-06-11 15:42:00 130 mm[Hg] [facility] Diastolic blood pressure 2022-06-11 15:42:00 76 mm[Hg] [facility] Heart rate 2022-06-11 15:42:00 76 /min [facility] Body temperature 2022-06-11 15:42:00 36.56 Kierra [facility] Respiratory rate 2022-06-11 15:42:00 16 /min [facility] Body height 2022-06-11 15:42:00 157.5 cm [facility] Body weight 2022-06-11 15:42:00 76.885 kg [facility] BMI 2022-06-11 15:42:00 31.00 kg/m2 [facility] Systolic blood pressure 2020-12-26 20:16:00 126 mm[Hg] [facility] Diastolic blood pressure 2020-12-26 20:16:00 81 mm[Hg] [facility] Heart rate 2020-12-26 20:16:00 75 /min [facility] Body temperature 2020-12-26 20:16:00 36.39 Kierra [facility] Systolic blood pressure 2019-08-11 13:52:00 132 mm[Hg] [facility] Diastolic blood pressure 2019-08-11 13:52:00 78 mm[Hg] [facility] Heart rate 2019-08-11 13:52:00 76 /min [facility] Body temperature 2019-08-11 13:52:00 35.5 Kierra [facility] Respiratory rate 2019-08-11 13:52:00 17 /min [facility] Body height 2019-08-11 13:52:00 157.5 cm [facility] Body weight 2019-08-11 13:52:00 63.504 kg [facility] BMI 2019-08-11 13:52:00 25.61 kg/m2 [facility] Oxygen saturation in Arterial blood by Pulse oximetry 2019-08-11 13:52:00 98 /min [facility] Systolic blood pressure 2019-08-11 13:52:00 132 mm[Hg] [facility] Diastolic blood pressure 2019-08-11 13:52:00 78 mm[Hg] [facility] Heart rate 2019-08-11 13:52:00 76 /min [facility] Body temperature 2019-08-11 13:52:00 35.5 Kierra [facility] Respiratory rate 2019-08-11 13:52:00 17 /min [facility] Body height 2019-08-11 13:52:00 157.5 cm [facility] Body weight 2019-08-11 13:52:00 63.504 kg [facility] BMI 2019-08-11 13:52:00 25.61 kg/m2 [facility] Oxygen saturation in Arterial blood by Pulse oximetry 2019-08-11 13:52:00 98 /min [facility] Body temperature 2019-07-24 18:29:00 37.67 Kierra [facility] Respiratory rate 2019-07-24 18:29:00 16 /min [facility] Body height 2019-07-24 18:29:00 157.5 cm [facility] Body weight 2019-07-24 18:29:00 63.504 kg [facility] BMI 2019-07-24 18:29:00 25.61 kg/m2 [facility] Oxygen saturation in Arterial blood by Pulse oximetry 2019-07-24 18:29:00 99 /min [facility] Systolic blood pressure 2019-07-24 18:29:00 115 mm[Hg] [facility] Diastolic blood pressure 2019-07-24 18:29:00 73 mm[Hg] [facility] Heart rate 2019-07-24 18:29:00 78 /min [facility] Procedures Procedure Date / Time Performed Performing Clinician Source CONSENT/REFUSAL FOR DIAGNOSIS AND TREATMENT 2023-07-01 22:17:39 Doctor Unassigned, [place] [facility] POCT SARS-COV-2 ANTIGEN (BINAX NOW) 2023-04-16 16:50:00 Lety Escobar [facility] POCT MOLECULAR FLU 2023-04-16 16:38:00 Unknown, Attend ing [facility] POCT MOLECULAR STREP 2023-04-16 16:35:00 Unknown, Atte treyjulieta [facility] TDAP VACCINE, >11 YRS, IM 2022-09-09 21:38:43 Enid Cuenca [facility] VACCINATIONS - CONSENTS, ELIGIBILITY, HISTORY 2022-09-09 05:01:00 Doctor Unassigned, [place] [facility] CYTO OTHER 2022-08-14 18:10:00 Adum, Rose Espino [facility] INTUBATION 2022-08-14 15:20:00 Pat Rodriguez [facility] LAPAROSCOPIC SALPINGO-OOPHORECTOMY 2022-08-14 14:52:00 Adum, Rose Espino [facility] HB ABO GROUPING 2022-08-14 12:00:00 Adum, Rose Espino [facility] HB ABO GROUPING 2022-08-14 12:00:00 Adum, Rose Espino [facility] POCT TEST 2022-08-14 11:50:00 Henrique Chowdhury [facility] POCT TEST 2022-08-14 11:50:00 Henrique Chowdhury [facility] ASSIGNMENT OF BENEFITS 2022-08-12 13:41:54 Docto r Unassigned, [place] [facility] DSU PRE-OP 2022-07-29 05:01:00 Doctor Unass igned, [place] [facility] DSU PRE-OP 2022-07-29 05:01:00 Doctor Unass igned, [place] [facility] CBC WITH DIFF 2022-06-27 15:33:00 Enid Cuenca [facility] US PELVIS LIMITED 2022-06-25 14:39:58 Alee Montesinos [facility] CONSENT TO CONTACT FOR VOLUNTARY RESEARCH 2022-06-11 15:20:50 Doctor Unassigned, [place] [facility] POCT URINALYSIS W/O SPECIFIC GRAVITY 2022-06-11 00:00:00 Rose Johnson [facility] MRI BRAIN W WO CONTRAST 2021-01-16 18:49:20 EvaHerbert moore [facility] MRI BRAIN W WO CONTRAST 2021-01-16 18:49:20 EvaHerbert moore [facility] XR CHEST 1 VW 2019-07-24 19:26:07 [facility] POCT TEST 2019-07-24 19:08:00 Jarod Lopes [facility] EKG-12 LEAD 2019-07-24 19:05:03 Jarod Lopes [facility] NOTICE OF PRIVACY PRACTICES 2019-07-24 18:15:52 Doctor Unassigned, [place] [facility] Encounters Start Date/Time End Date/Time Encounter Type Admission Type Attending Clinicians Care Facility Care Department Encounter ID Source 2022-09-15 11:52:54 Outpatient [facility] [id number] [facility] 2021-05-29 11:20:48 Outpatient Odell, [facility] [id number] [facility] 2021-05-29 11:20:31 Outpatient Odell, [facility] [id number] [facility] 2021-05-29 11:19:22 Outpatient Odell, [facility] [id number] [facility] 2021-05-29 11:15:40 Outpatient Odell, [facility] [id number] [facility] 2024-01-27 00:00:00 2024-01-27 13:49:16 Telephone Enid Cuenca [facility] 1.2.840.114 350.1.13.10 4.2.7.2.686 [id number] [facility] 2024-01-27 00:00:00 2024-01-27 13:19:25 Telephone Harlan Forbes [facility] 1.2.840.114 350.1.13.10 4.2.7.2.686 [id number] [facility] 2024-01-26 12:45:00 2024-01-26 13:00:00 Electrical Engineering Intern Visit Lab, Ang - Anand Myah Forbesthia Lab, Ang - Anand [facility] 1.2.840.114 350.1.13.10 4.2.7.2.686 [id number] [facility] 2024-01-26 11:30:00 2024-01-26 12:04:29 Outpatient R HARLAN FORBES [facility] [id number] [facility] 2024-01-26 11:30:00 2024-01-26 12:04:29 [facility] 1.2.840.114 350.1.13.10 4.2.7.2.686 [id number] [facility] 2024-01-07 09:53:00 2024-01-07 09:53:00 Outpatient SADIA [facility] [id number] [facility] 2023-09-15 00:00:00 2023-10-17 18:19:26 Patient Secure Msg Doctor Unassigned, [place] [facility] 1..840.114 350.1.13.10 4.2.7.2.686 [id number] [facility] 2023-09-14 13:30:00 2023-09-14 13:47:03 Outpatient R YAJAIRA DESAI [facility] [id number] [facility] 2023-09-14 13:30:00 2023-09-14 13:47:03 Office Visit Yajaira Desai [facility] 1.840.114 350.1.13.10 4.2.7.2.686 [id number] [facility] 2023-07-03 00:00:00 2023-07-03 00:00:00 Patient Secure Msg Doctor Unassigned, [place] [facility] 1.84.114 350.1.13.10 4.2.7.2.686 [id number] [facility] 2023-07-02 09:00:00 2023-07-02 10:19:52 Outpatient R YAJAIRA DESAI [facility] [id number] [facility] 2023-07-02 09:00:00 2023-07-02 09:15:00 Electrical Engineering Intern Visit Lab, Ang - Db Unknown, Attending [facility] 1.84.114 350.1.13.10 4.2.7.2.686 [id number] [facility] 2023-07-01 16:30:00 2023-07-01 16:51:35 Outpatient R YAJAIRA DESAI [facility] [id number] [facility] 2023-07-01 16:30:00 2023-07-01 16:51:35 Office Visit Yajaira Desai [facility] 1.84.114 350.1.13.10 4.2.7.2.686 [id number] [facility] 2023-07-01 00:00:00 2023-07-01 00:00:00 Orders Only Doctor Unassigned, [place] [facility] 1.84.114 350.1.13.10 4.2.7.2.686 [id number] [facility] 2023-04-16 10:40:00 2023-04-16 10:58:54 Outpatient R LETY ESCOBAR [facility] [id number] [facility] 2023-04-16 10:40:00 2023-04-16 10:58:54 Urgent Care Lety Escobar Unknown, Attending [facility] 1.84.114 350.1.13.10 4.2.7.2.686 [id number] [facility] 2023-03-09 11:30:00 2023-03-09 11:30:00 Outpatient HERBERT BAILEY [facility] [id number] [facility] 2022-12-09 16:00:00 2022-12-09 17:04:56 [facility]patient [facility] [id number] [facility] 2022-12-09 16:00:00 2022-12-09 17:04:56 Office Visit [facility] 1.84114 350.1.13.10 4.2.7.2.686 [id number] [facility] 2022-09-25 00:00:00 2022-09-25 00:00:00 Telephone AdRose pena [facility] 1..114 350.1.13.10 4.2.7.2.686 [id number] [facility] 2022-09-09 16:45:00 2022-09-09 17:00:00 Electrical Engineering Intern Visit Lab, Ang - Anand Cuenca [facility] 1.84.114 350.1.13.10 4.2.7.2.686 [id number] [facility] 2022-09-09 16:00:00 2022-09-09 16:52:42 Office Visit [facility] 1.114 350.1.13.10 4.2.7.2.686 [id number] [facility] 2022-09-09 08:30:00 2022-09-09 08:47:06 Outpatient R ADUM, ROSE [facility] [id number] [facility] 2022-09-09 08:30:00 2022-09-09 08:45:00 Electrical Engineering Intern Visit Lab, Myles - Anand Unknown, Attending [facility] 1.840.114 350.1.13.10 4.2.7.2.686 [id number] [facility] 2022-09-09 00:00:00 2022-09-09 00:00:00 Orders Only Doctor Unassigned, [place] [facility] 1.840.114 350.1.13.10 4.2.7.2.686 [id number] [facility] 2022-08-28 15:30:00 2022-08-28 16:24:09 Outpatient R ADUM, [facility] [id number] [facility] 2022-08-28 15:30:00 2022-08-28 16:24:09 Office Visit AdRose pena [facility] 1.840.114 350.1.13.10 4.2.7.2.686 [id number] [facility] 2022-08-27 14:00:00 2022-08-27 14:00:00 Outpatient R ADUM, [facility] [id number] [facility] 2022-08-14 06:48:00 2022-08-14 16:35:00 Outpatient R ADCHAPIN [facility] [employer]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 [place] 1.2.840.114 350.1.13.10 4.2.7.2.686 [id number] [facility] 2022-08-14 07:45:00 2022-08-14 10:41:00 Surgery Rose Johnson [facility] 1.2840.114 350.1.13.10 4.2.7.2.686 [id number] [facility] 2022-08-12 08:30:00 2022-08-12 08:45:00 Electrical Engineering Intern Visit Pob, Adc Lab Main Rose Johnson [facility] PROFESSIO [facility] 1.2840.114 350.1.13.10 4.2.7.2.686 [id number] [facility] 2022-08-12 08:30:00 2022-08-12 08:30:00 Outpatient R ALEX ROSE [facility] [id number] [facility] 2022-08-12 00:00:00 2022-08-12 00:00:00 Orders Only Doctor Unassigned, [place] [facility] 1.2840.114 350.1.13.10 4.2.7.2.686 [id number] [facility] 2022-08-07 09:20:00 2022-08-07 09:54:17 Outpatient R ENID CUENCA [facility] [id number] [facility] 2022-08-07 09:20:00 2022-08-07 09:54:17 Office Visit Kley, [place] [facility] 1.2.840.114 350.1.13.10 4.2.7.2.686 [id number] [facility] 2022-07-29 09:00:00 2022-07-29 10:30:28 Outpatient R ADCHAPIN ROSE [facility] [id number] [facility] 2022-07-29 09:00:00 2022-07-29 10:30:28 Office Visit Alex Rose [facility] 1.2.840.114 350.1.13.10 4.2.7.2.686 [id number] [facility] 2022-07-25 00:00:00 2022-07-25 00:00:00 [facility] 1.2.840.114 350.1.13.10 4.2.7.2.686 [id number] [facility] 2022-07-25 00:00:00 2022-07-25 00:00:00 Patient Secure Msg Delvin [facility] 1.2.840.114 350.1.13.10 4.2.7.2.686 [id number] [facility] 2022-07-24 00:00:00 2022-07-24 00:00:00 Telephone Alex Rose Espino [facility] 1.2.840.114 350.1.13.10 4.2.7.2.686 [id number] [facility] 2022-07-24 00:00:00 2022-07-24 00:00:00 [facility] 1.2.840.114 350.1.13.10 4.2.7.2.686 [id number] [facility] 2022-07-22 14:34:55 2022-07-22 23:59:00 Outpatient R LEX MONTESINOS [facility] [id number] [facility] 2022-07-22 14:34:55 2022-07-22 23:59:00 Hospital Encounter Lex Montesinos [facility] 1..114 350.1.13.10 4.2.7.2.686 [id number] [facility] 2022-07-21 00:00:00 2022-07-21 00:00:00 Patient Secure Msg Doctor Unassigned, [place] [facility] 1.114 350.1.13.10 4.2.7.2.686 [id number] [facility] 2022-07-09 08:15:00 2022-07-09 08:30:00 Electrical Engineering Intern Visit Lab, [facility] 1.114 350.1.13.10 4.2.7.2.686 [id number] [facility] 2022-07-09 08:15:00 2022-07-09 08:15:00 Outpatient R ALEX ROSE [facility] [id number] [facility] 2022-07-08 08:00:00 2022-07-08 08:30:32 Outpatient R ALEX [facility] [id number] [facility] 2022-07-08 08:00:00 2022-07-08 08:30:32 Office Visit Lex Montesinos Rose [facility] 1.114 350.1.13.10 4.2.7.2.686 [id number] [facility] 2022-07-05 00:00:00 2022-07-05 00:00:00 [facility] 1.2840.114 350.1.13.10 4.2.7.2.686 [id number] [facility] 2022-07-04 13:30:00 2022-07-04 14:06:28 Outpatient R LEX [facility] [id number] [facility] 2022-07-04 13:30:00 2022-07-04 14:06:28 [facility] 1.2840.114 350.1.13.10 4.2.7.2.686 [id number] [facility] 2022-07-04 00:00:00 2022-07-04 00:00:00 Telephone Nicholeerica [facility] 1.2.840.114 350.1.13.10 4.2.7.2.686 [id number] [facility] 2022-06-27 09:30:00 2022-06-27 09:31:26 Electrical Engineering Intern Visit Lab, Myles - [facility] 1.2.840.114 350.1.13.10 4.2.7.2.686 [id number] [facility] 2022-06-27 08:40:00 2022-06-27 09:25:33 Office Visit Matt [facility] 1.2840.114 350.1.13.10 4.2.7.2.686 [id number] [facility] 2022-06-27 08:40:00 2022-06-27 09:25:33 Outpatient R MATT [facility] [id number] [facility] 2022-06-25 07:52:06 2022-06-25 23:59:00 Outpatient R LEX MONTESINOS [facility] [id number] [facility] 2022-06-25 07:52:06 2022-06-25 23:59:00 Hospital Encounter Lex Montesinos [facility] 1.2.840.114 350.1.13.10 4.2.7.2.686 [id number] [facility] 2022-06-13 00:00:00 2022-06-13 00:00:00 Telephone Ana MariaLex harmon [facility] 1.840.114 350.1.13.10 4.2.7.2.686 [id number] [facility] 2022-06-11 10:15:00 2022-06-11 10:22:05 Outpatient R ROSE JOHNSON [facility] [id number] [facility] 2022-06-11 10:15:00 2022-06-11 10:22:05 Office Visit GriseldaLex malik Rose Johnson [facility] 1.840.114 350.1.13.10 4.2.7.2.686 [id number] [facility] 2022-06-11 00:00:00 2022-06-11 00:00:00 Orders Only Doctor Unassigned, [place] [facility] 1.2.840.114 350.1.13.10 4.2.7.2.686 [id number] [facility] 2022-06-04 09:26:55 2022-06-04 09:26:55 Outpatient [facility] [id number] Radames Barksdale 2022-05-15 10:28:47 2022-05-15 10:28:47 Outpatient [facility] [id number] Radames Barksdale 2021-01-16 00:00:00 2021-01-16 00:00:00 EXT [facility] OP Herbert Bailey EXT [facility] LOCATION 1.2.840.114 350.1.13.58 9.2.7.2.686 [id number] [facility] 2021-01-16 00:00:00 2021-01-16 00:00:00 EXT MH OP Herbert Bailey EXT [facility] LOCATION 1.2.840.114 350.1.13.58 9.2.7.2.686 [id number] [facility] 2020-12-26 14:41:32 2020-12-26 15:55:50 [place] 1.2.840.114 350.1.13.58 9.2.7.2.686 [id number] [facility] 2019-09-12 08:02:00 2019-09-12 08:02:00 Outpatient Joseospor [facility] Medicine [id number] [facility] 2019-08-11 08:26:17 2019-08-11 09:35:48 Urgent Care Pob1, Acute Care Clinic Nadya Heart [facility] Office [address] 1.840.114 350.1.13.10 4.2.7.2.686 [id number] [facility] 2019-08-11 08:26:17 2019-08-11 09:35:48 Urgent Care Pob1, Acute Care Clinic [facility] Office [facility] 1.84.114 350.1.13.10 4.2.7.2.686 [id number] 2019-08-11 08:20:00 2019-08-11 08:20:00 Outpatient [facility] [id number] [facility] 2019-08-11 00:00:00 2019-08-11 00:00:00 Telephone Nas, [facility] 1.2.840.114 350.1.13.10 4.2.7.2.686 [id number] [facility] 2019-08-11 00:00:00 2019-08-11 00:00:00 Telephone Nas [facility] 1.2.840.114 350.1.13.10 4.2.7.2.686 [id number] 2019-07-24 13:34:03 2019-07-24 14:48:00 Emergency Jarod Lopes [facility] 1.2.840.114 350.1.13.10 4.2.7.2.686 [id number] [facility] 2019-07-24 13:34:03 2019-07-24 14:48:00 Emergency X JAROD LOPES [facility] ERT [id number] [facility] Results Test Description Test Time Test Comments Results Result Co mments Source [facility] Molecular [id number] 16:49:51* Test Item Value Reference Range Interpretation Comme nts POCT Molecular FluA (test co de = 11636-6) Negative Negative POCT Molecular FluB (test co de = 66441-4) Negative Negative Lab Interpretation (test cod e = 25108-1) Normal [facility] MOLECULAR [id number] 16:43:11* Test Item Value Reference Range Interpretation Comme nts POCT Molecular Strep (test c ode = 77432-6) Negative Negative Lab Interpretation (test cod e = 87034-8) Normal [facility] [id number] 22:00:14* Test Item Value Reference Range Interpretation Comme nts Case Report (test code = 9696635796) Non-Gynecologic Cytology ?Case: [id number] ?Authorizing Provider: ?Rose Johnson MD ? Collected: ? 08/14/2022 1310 ?Ordering Location: ? ? [facility] ? ? ?Received: ?08/14/20223 ? [place] ? Pathologist: ? He, Elvira, MD ? Specimen: ? ?PERITONEAL WASHINGS ? Final Diagnosis (test code = 9274030862) a9qrmOPjHBTum6udDAYcr GFuZzEwMzNcZnRuYmpcdW MxIHtccnRmMVxlcGljMTA sCVSgi7ffs9heaLXqYPMx s9fzc8VltQFkdNEcENhvn HCrbrLwcg61mUI3hQ67DI 0vAMVoPvR6UAMfwnE0Byb 6OVRgMZCttBDyT455c0tr w4arpaWmzCX4fXrxGMZhu bcxQzK1ZKbeKCBkcchjFB i0UGtkUJJoqYQ8WASqwRN cV6ZiNOAuDH3guuy9TFU9 AVozOTKzGyZ1QMWzwBXxG GTzwCriTCnuw267GSY6Ok NqEIFarpXids28mCIqgLf zMVMdyYqykY1uGhnevuPm SMTrkiz7kEBeoBrgTBZgT M4dPUMGWgmKH59ZQN69LC dWH1nJNvx2RFAlfhYzVBN vZWJdJG7HU8TQEIZQUGGV SjHXMVmQA72IUsXvK2IMK BHsXHTaKUeZFJKyA61VBP EGGIoebZZwCVMczd55JAQ 9LfKyh9Z0JDViEpUhCJMx VG5ywLclIRPhBP6mTSPhF 6vvgV2rpfa0VzJxINVnUg K6LFUuimC0Nvt4QHIsSFy ek5xtp1BmZ8WdxWFdwDs3 w5lvVOXvYgX8kPBkUWprC 3ikoiEcuUQrYCIyQZi0oP zcCwYlSZGvv8zcqmQzKoR oYXJzZXQwIENhbGlicmk7 vI55PIVpwD4bdRLnAMhix wLmKoU3JYtgNIAcSoG0SC JwjLPxBUKfK2tsRIFqBBg cXSKuZZjarPXsDTW7jYfp q4Z5iJDhdGAauIstCkIsZ dReSUEXb7LoBNt5hKimV8 LnECBmAvN6hVHxUNRcOMk jYZDwNUDoraG7hX73LIep uaN0sHOzb0Yjz82qk079d K8mwOQcTQY4UUGwJZOrhP UzJLQqWPO8YFIeeBJmC5z iKEDhLN4tbkzjYZjaCLji ILYtlXQ0IQEeiZEtA1SiY UTkQAgdOUVswtv1WzKrDi 3meVWcbGteGZjma2gro7q lfYLrCgz8JDYgUgGfHbpm NNdsw7Nvn9ijOIFccc8xT EE1uBAuhRlsk3C4sQYqSW EhvGPskqJsDFYyLlM6WIm rGL2mjr66DSJeAQX1yz8y bGNccGdicmRyaGVhZFxwZ 9ObRNAxy251VCPbX6WvWR Vrl3R5gsArWwPmETVfwXZ 9bjW0RKLiUSd9cXRbhaS4 gdLtsAKqB6lijQ1zLADdT K8dlwbip2leZVdbTNmwTW KvmPI2xyV8MMAskXYkW1F nfJ9cMQSpJWwuYQUqqyb0 QcKtDw9vdGFrpFwaMWxsY mtwYWdlXHBnbmNvbnRccG duZGVjXHBsYWluXHBsYWl uXGYwXGZzMjRccWxccGxh bB0lQoIeGxDkALcmGJ7aK ILeY0unpOYqVLItFHDaF4 inTqOrgN5pdObmEJkcSeP cZnMyMFxwYXIgSSBoYXZl ISYmrfPcguSzrBahkrD5q WW1WPGxJHesMOZwYTQygI Eiip4oyHbmSSMwRC9pOBY ncmVlIHdpdGggYWxsIHN0 YXRlbWVudHMgbWFkZSBie SByZXNpZGVudHMsIGZlbG brc7Cis9LuoME9aD3ny5j ou1TrPFSkiJK4OW84nkD1 kR5rMACyGN3cGJXdSI0fz YIdkOTjBPNhf68ydEqwif ByZXBvcnQuXHBsYWluXGY yXGZzMjhcbGFuZzEwMzNc aGljaFxmMlxkYmNoXGYyX TdjE4vjEnQwQbZjIFflRG J9fQ== Final Diagnosis Comment (test code = 9486715881) m7sxbVJvHDExxGCsJNTjT hnohwXjZZMvwXMsN6Thbq vuSNdpFK5vFA8jmTeobXB rpGWtEEAjKpVbz5sjf284 sEWfr4usNXMEoilvlEm3z KazA60kk8H0KoemB26otF UdJLV2LLTzCMKjmVZtOIA sELK2XQDorNXkM5ikUBCs VM1mebgxTRslQZipKHJou TU0KKHzhUQyH9DxALWnEN hnFHVawrg0AcKlCl8evCG yeTcyMFxwYXJkXHBsYWlu QNRhFjTpV12iZYWdAZBce 4drM2UbnIVrYR2dZAAutn lnbiBtZXNvdGhlbGlhbCB zORdnti5bHn7aiOPcqPnb TQ00EJWlqByuHCNiFBOrY GVudGlmaWVkLlxwYXJ9 Clinical Information (test code = 9169688629) Right ovarian cyst Gross Description (test code = 6986916313) k4djdUYpJEOozZKrXEWaZ dspmiBuRLAmyXNyR4Sbpp hwATldCL2zDQ4xlLeywGH xuDTsGFSeRaXur4vzl203 zEWcz7weJKAVrqnhvIa9x XxeW75it7T0PpolQ8xyXE QwXGdyZWVuMFxibHVlMDt 9XHBhcGVydzEyMjQwXHBh aWOvtRH6KYSfCF9cuxpkS VpwMJfgNEGyflW8PPZfnZ NbM6JzAEAqQW4cvzdvAOC 7HHktDZPwTDL3CaCmUIVl l0Fpcua8ZsL7VJnlUBMdP 7LoM6BlKUmjUPP6AJHtMO RdMNTnDL2OLuWrQGO9ZmG yMzAiIFJFUSAzNzEzODkz XCZDRVRpJGEkGEH2KFWbE iIgTFJSIDgwMDAwMDAwMD EgXFxuaCBcXHQgMSBcXGZ aYDifmaN1m1gaBCVrbVLo XFW5LVnqnFYiYBXmYRXtA NdqFyBSQjOdUfR5RxmuVi CmRxM6BBl6SNBMKvKsNpH kVfXhUMF3XZciNLv8WEb0 TNhIXvNvKxm6AnX7JsX2G GV5FBWmMTzvrYZtEFkwn1 NoCpPlHBXbIPzbtwU5HVI yqsBwcGnrzC6zIbZcDSre YXJccGFyZFxzYjMwXGVwa LYIz2XqJUohgYOmvautsz IwXHBhclxwYXJkXHdpZGN 7bLEygrFGSG5tGOFLBnaN N61LDG13VFtUK4ePKlqis GFyXGNmMSBSZWNlaXZlZC LchoHthEBel6nmCJZbFXU vV3HjdaLgDeYnC3TpdmGu ZiBjbGVhciBmbHVpZCByZ WNlaXZlZCBmcmVzaFxwYX Hvr0VoJIxafKezTGBsDtB dqt91sDWurHukACLvPJMo cGFyZWQgMiBzbGlkZXMgK GW3gG5apLpxTMRpIBIgrc U6wO3kkxsjPSRVs36tsb6 7i6b6PFPyQUUcQMUegXEh aWNvbGFvdSBzdGFpbmVkK VbfWuPrJGuaWAVwQ3VnB7 QhonO7z4pbeThpn1SikFJ xNU8niHHdfE== Disclaimer (test code = 4645549867) v3isnTHtHEDwl6wvJZZji GFuZzEwMzNcZnRuYmpcdW WlQGdncoNuTWlnf6HrA1G yMjAwMFxhbnNpXGRlZmxh qcpfVTIwOOU2ijSuTKCcO UpeWQNdXSxiLr6ggCXzmP zlHlXeDOFii1elrrEDCEa zYsCwL750PTUoGZwdc8nm w2MmDSNcsVZdu7N4GHLUd mdumDb6jPrlK49lf1A6Tw noD6cvQAZoMJDbZ9RoDE6 rEBWpTsz3XIP9BQQ6BVNr TKMqP5LiGP1bOSIkyIUhD Pl0b0jhnHcgURMoXUC0z5 vjFGytcxJyYQ7fwn3esJd 4q1iqnyZxEAEfHWEjoBBF GFDbE8LzkMdwUz2evHj5e JqjHfrwOIX3Rsp3XV6oej 56mxm4wUyyYUKymtfjWbF 5VVjxDQHxhtlcOVv4TZnb ASWqsUY6HKPawWZdQ7BfQ CVtYO3stey9QBC7ARxyUM IoLeZ8CEGidUBtOGRytUk vAPmxz985BPT6CgXfVL2x M5Kmq4V2gG3ymQLjJPWrg NIsFgYsIZSmnd8wyJDwGC ppc0KvQLF6euQ3jDCuxEA kDTFiHJ19Yfyzt8AfXldf p4LfD07unAZ6OXfvs0dmM N8gHzQ2beRbMOlzo4svlO 1gUhM7OIweCU2bQA9gUAE ccZ9fxsekOTBtBzEbtqjd WQBdsIdxlrKiHl1edDuhR KP7URynJ1jftH1cLqL8CA drZ3xigW6gXQh0SNhttFX 1QUGvcA5oIF6pstsqk3ud KKaqFLxdGLKmsrW1shZ0G NEyaYBxL1YnlY0pMUSeAB 4xrlsxx3jqNBK8HOpjDPZ fMOC0EjPwPWLzs5Sxfix2 CeQio7KnpARqJYgwW10yz 914FGYotzIbW3fcsUEhvz vxaETuselhKWbbzvQ6WPQ futQua5LaHABuXCZ3PHvy OQcdjINhKMOfuRbkv3ojD 3RscGFyXHBsYWluXGYxXG ZzMjBcbGFuZzEwMzNcaGl jaFxmMVxkYmNoXGYxXGxv C6bjOvZfG9EpXNRdGiAsa BKdF6qeEZgdrgWkLLMoed ModJC0HTiwV4m3VCHkgeY srRw8yuSlHiAjFGEeMUR4 IRrjoEVcRNFjk9Uhbofwy PQeVz6qzUKeWANprJ2wLJ RnUWFsPFzbVG8mzQh8RMS NpDOzcQKyKjYJLJPhUI71 vdVySLGRlpcrx8V0MMkxO XBzm1JsrZMtW4els9RsOC Qix68rBK0su1B1s5zwAAE 2CU6dh7QpTGWgkFMdjWKg BHVub1Irfsqid1EhEHEvh rBxa2JrOFFqpaXloARgWT DltwIdua7gpdKoYFJrTOL iO0IebgudzGtxooRpEDFh uk7tvxOoGEX0XJFJEIXoD VXuh0YbuZ5zzDKWLMO5lY Eixq1ofcLPwZVnUDBrig7 9PVYiBD8pD9bkMZPkZUQc ibXalPEkl9LwFQJehWM7m BWiNE9GIsJDm80lMGKvHJ SDgbHxFDOyoAyzdNX8utL 0hS9eMIuJXLNtUvd+IFRo DGWASIGbTP3fwlQfa4Wyu yBfzHviPRVhbDMfr3NlmH Vbg6AcpXzma5JpkTFxbDK kCA9uQATzxpydDYXfOHOA JjUMMNDycuN4f3ItVMDmL DZwEGN6vVlixni6KSBecG 1iOHDyY8jbvxawOTjvHYE pu0OiwD3wgZEScBYka5Bn bHWdiDJIkXFjTE2zoaSqW EaHIZmRABC6bsXqCLZkv1 IaGVxkZ5ypH49svWzxoEw 7yQS2ZRO8mF7wOgq+IFxw YXJccGFyIEFwcHJvcHJpY JFslAewfsPqS5UkfpWkeW 4veZVjphKoCK7sMI2aQ5E 0uASoXAKzcmGcf4sjKChk dmUgYmVlbiByZXZpZXdlZ PNhi8GyVTwnGXY7YGralr BpbmNsdWRpbmcgSCZFLCB WaIIyzIFbHSH0RZjhmqDk vqXhFY9hxM8npHvmdU1gi RWdjER7bszaPPJsDXYqpO jwADSwUZ3agSCrKZAzvpH PaLfkwJDdrK9jD6MnPWMo DWZhgp5qVLWewO1vHGauo 2VydmljZXMgYXJlIHBlcm Noro3wYKCaeCIRGI1QNCd gtPZqe3UnkbFvF0hWSZI0 NUQwNjYwMjgxKSBleGNlc NPqGNYgaf63BZNdbI6woC ytSTDttE5vkB8mrWkuqO5 iWjIpJaMnDSbeYG0tYGTa D0fxlJXoDJKjORWcI0mxL sUhbQ4uiHidFWnbNdKnJa BhQPdbOPX0cX== Embedded Images (test code = 4530685225) [facility] - This is a pre-surgical type and screen. ONCE [id number] 12:22:00* Test Item Value Reference Range Interpretation Comme nts ABO & RH (test code = 20) O Positive IAT (test code = 1185) Negative [facility] - This is a pre-surgical type and screen. ONCE [id number] 12:22:00* Test Item Value Reference Range Interpretation Comme nts ABO & RH (test code = 20) O Positive [facility]AT (test code = 1185) [id number] 12:02:00* Test Item Value Reference Range Interpretation Comme nts POCT PREG (test code = 1605) Negative On board controls acceptable with C Line (test code = 3574) Yes POCT PREG LOT # (test code = 3575) POCT PREG TEST DATE ( test code = 3576) Lab Interpretation (test cod e = 58273-3) Normal [facility] [id number] 12:02:00* Test Item Value Reference Range Interpretation Comme nts POCT PREG (test code = 1605) Negative On board controls acceptable with C Line (test code = 3574) Yes POCT PREG LOT # (test code = 3575) POCT PREG TEST DATE ( test code = 3576) Lab Interpretation (test cod e = 57270-6) Normal [facility] WITH [id number] 20:38:19* Test Item Value Reference Range Interpretation Comme nts WBC (test code = 6690-2) 5.21 See_Comment [Automated messa ge] The system which generated this result transmitted reference range: 4.30 - 11.10 10*3/?L. The reference range was not used to interpret this result as normal/abnormal. RBC (test code = 789-8) 4.40 See_Comment [Automated messa ge] The system which generated this result transmitted reference range: 3.93 - 5.25 10*6/?L. The reference range was not used to interpret this result as normal/abnormal. HGB (test code = 718-7) 12.2 g/dL 11.6-15.0 HCT (test code = 4544-3) 37.5 % 35.7-45.2 MCV (test code = 787-2) 85.2 fL 80.6-95.5 MCH (test code = 785-6) 27.7 pg 25.9-32.8 MCHC (test code = 786-4) 32.5 g/dL 31.6-35.1 RDW-SD (test code = 70442-0) 39.5 fL 39.0-49.9 RDW-CV (test code = 788-0) 12.8 % 12.0-15.5 PLT (test code = 777-3) 222 See_Comment [Automated messa ge] The system which generated this result transmitted reference range: 166 - 358 10*3/?L. The reference range was not used to interpret this result as normal/abnormal. MPV (test code = 05964-0) 10.6 fL 9.5-12.9 NRBC/100 WBC (test code = 5377666103) 0.0 See_Comment [Automated me ssage] The system which generated this result transmitted reference range: 0.0 - 10.0 /100 WBCs. The reference range was not used to interpret this result as normal/abnormal. NRBC x10^3 (test code = 9450369211) See_Comment [Automated messa ge] The system which generated this result transmitted reference range: 10*3/?L. The reference range was not used to interpret this result as normal/abnormal. GRAN MAT (NEUT) % (test code = 770-8) 49.5 % IMM GRAN % (test code = 5517562764) 0.20 % LYMPH % (test code = 736-9) 30.5 % MONO % (test code = 5905-5) 7.9 % EOS % (test code = 713-8) 11.1 % BASO % (test code = 706-2) 0.8 % GRAN MAT x10^3(ANC) (test code = 4482318405) 2.58 10*3/uL 1.88-7.09 IMM GRAN x10^3 (test code = 7066029365) 0.00-0.06 LYMPH x10^3 (test code = 731-0) 1.59 10*3/uL 1.32-3.29 MONO x10^3 (test code = 742-7) 0.41 10*3/uL 0.33-0.92 EOS x10^3 (test code = 711-2) 0.58 10*3/uL 0.03-0.39 H BASO x10^3 (test code = 704-7) 0.04 10*3/uL 0.01-0.07 Lab Interpretation (test code = 42901-8) Abnormal [facility] URINALYSIS W/O SPECIFIC [id number] 15:45:00* Test Item Value Reference Range Interpretation Comme nts POCT PH U (test code = 3254) 6 mg/dl 5-8 POCT U LEUK EST (test code = 3263) + Negative - Negative POCT U NIT (test code = 3262) negative Negative - Negati ve POCT U PROT (test code = 3259) negative Negative - Negat jeff POCT U GLU (test code = 3256) negative Negative - Negati ve POCT U KETONE (test code = 3258) negative Negative - Neg ative POCT U BLD (test code = 3257) negative Negative - Negati ve [facility] URINALYSIS W/O SPECIFIC [id number] 15:45:00* Test Item Value Reference Range Interpretation Comme nts POCT PH U (test code = 3254) 6 mg/dl 5-8 POCT U LEUK EST (test code = 3263) + Negative - Negative POCT U NIT (test code = 3262) negative Negative - Negati ve POCT U PROT (test code = 3259) negative Negative - Negat jeff POCT U GLU (test code = 3256) negative Negative - Negati ve POCT U KETONE (test code = 3258) negative Negative - Neg ative POCT U BLD (test code = 3257) negative Negative - Negati ve [facility] TO CONTA[facility] FOR VOLUNTARY RESEARCH 2022-06-11 15:20:50* Test Item Value Reference Range Interpretation Comme nts Consent To Contact For [employer] (test code = 4947) Yes [facility]ville[facility] 1 [id number] 19:44:08No acute cardiopulmonary abnormality. Preliminary Report Dictated by Resident: Aime Parry MD., have reviewed this study and agree with the abovereport.XR CHEST 1 VW HISTORY: cough COMPARISON: None TECHNIQUE: AP radiograph of the chest was performed. FINDINGS: The lungs are clear. No focal consolidation, pneumothorax or pleuraleffusion is seen. The cardiomediastinal silhouetteis normal. No acute osseous abnormality. [facility], Radiant Results Inft User - 07/24/2019 2:45 PM CDTXRCHEST 1 VWHISTORY: cough COMPARISON: NoneTECHNIQUE: AP radiograph of the chest was performed.FINDINGS:The lungs are clear. No focal consolidation, pneumothorax or pleuraleffusion is seen.The cardiomediastinal silhouette is normal.No acute osseous abnormality.IMPRESSIONNo acute cardiopulmonary abnormality.Preliminary Report Dictated by Resident: Aime Farley MD., have reviewed this study and agree with the abovereport.[facility] StephenvillePOCT [id number] 19:12:00* Test Item Value Reference Range Interpretation Comme nts POCT PREG (test code = 1605) Negative On board controls acceptable with C Line (test code = 3574) Yes POCT PREG LOT # (test code = 3575) [id number] POCT PREG TEST DATE ( test code = 3576) 01/01/2021 Lab Interpretation (test cod e = 22027-7) Normal [facility] Notes Date/Time Note Provider Source 2024-01-27 13:48:49 Spoke to patient and relayed lab results and recommendations per Harlan Forbes DNP. Patient voiced understanding with no questions or concerns at this time. Nancy Winter RN [facility] 2024-01-27 13:30:23 Enid Kent is a 38 year old female returning call for recent lab results.Please advise Jessica Gonzalez [facility] 2024-01-27 13:19:12 Addressed. Critical access hospital 2024-01-27 10:24:29 Please review results and advise. Nancy Winter RN [facility] 2024-01-27 08:35:18 Pt said that the label designer and JAMIL Forbes said that her Rhabdomyolysis lab result was going to come in and if serious someone would be calling her. Pt is requesting her lab results. Charlotte Viveros [facility] 2024-01-26 12:45:00 Images from the original note were not included. Venipuncture collection performed by clean technique on the left anticubitus. Total of 1 attempts were made. Slight pressure and a bandage/dressing were applied to the site(s). The patient experienced no complications. The following specimens were processed according to instructions and sent to [facility] laboratories per lab order on 01/26/2024 : LT BLUE SST 3 RED LAV 1 PPT DK GREEN (LiHep) DK GREEN (SodH) SELLERS DK BLUE (K2) DK BLUE (S) ACD Blood Culture NIPT/NTD [facility] 2023-07-02 09:00:00 Images from the original note were not included. Venipuncture collection performed by clean technique on the left anticubitus. Total of 1 attempts were made. Slight pressure and a bandage/dressing were applied to the site(s). The patient experienced no complications. The following specimens were processed according to instructions and sent to [facility] laboratories per lab order on 07/02/2023: LT BLUE SST 2 RED LAV 2 PPT DK GREEN (LiHep) DK GREEN (SodH) SELLERS DK BLUE (K2) DK BLUE (S) ACD Blood Culture NIPT/NTD [facility]
[2024-01-27 16:25] LABS: Absolute Eosinophils 0.1 K/uL (0-0.5); Absolute Lymphocytes (CBC) 1.5 K/uL (0.7-4.9); Absolute Monocytes 0.4 K/uL (0.1-1.3); Absolute Neutrophil 3.1 K/uL (1.8-8.0); Basophils % 0.5 % (0-1.3); Eosinophils % 2.2 % (0-4.4); Hematocrit 34.8 % (36.0-45.0); Hemoglobin 11.7 g/dL (12.0-15.0); Lymphocytes % 29.7 % (15.3-44.8); MCH 27.8 pg (27.0-35.0); MCHC 33.7 g/dL (32.0-36.0); MCV 82.6 fL (80-100); MPV 7.8 fL (7.6-11.3); Monocytes % 7.5 % (3.3-12.3); Neutrophils % 60.1 % (41.7-73.7); Nucleated Red Blood Cells % 0.1 % (0-0); Platelets 207 thou/uL (152-406); RBC Red Blood Cell Count 4.21 M/uL (3.86-4.86); Red Cell Distribution Width 13.3 % (12.1-15.2)
[2024-01-27] MEDS ORDERED: NA CHLORIDE 0.9% 2,000 ML ONE (16:25)
[2024-01-27 16:41] LABS: Anion Gap 9.9 mEq/L (5.0-15.0); Potassium 3.9 mEq/L (3.5-5.1)
[2024-01-27 16:44] LABS: Specific Gravity 1.008 (1.005-1.030); Sqamous Epithelial <5 /HPF (None Seen); Urine Bacteria None Seen /HPF (<20); Urine Bilirubin NEGATIVE (Negative); Urine Blood Negative (Negative); Urine Clarity Clear (Clear); Urine Color Colorless (Yellow); Urine Culture Reflex Order NOT NEEDED; Urine Glucose NEGATIVE (Negative); Urine Ketones NEGATIVE (Negative); Urine Micro Reflex YN NO BILL MICROSCOPIC; Urine Nitrite NEGATIVE (Negative); Urine Protein NEGATIVE (Negative); Urine RBC <5 /HPF (None Seen); Urine Urobilinogen Normal (Normal); Urine WBC None Seen /HPF (<5); Urine pH 7.5 (5.0-7.0)
[2024-01-27 17:00] LABS: ALT/SGPT 153 U/L (13-56); AST/SGOT 238 U/L (15-37); Albumin 3.5 g/dL (3.4-5.0); Albumin/Globulin Ratio 1.1 (1.1-1.8); Alkaline Phosphatase 54 U/L (45-117); Bilirubin Direct < 0.2 mg/dL (0-0.2); Bilirubin Total 0.2 mg/dL (0.2-1.0); Creatine Phosphokinase 4598 U/L (26-192); Globulin 3.2 g/dL (2.3-3.5); Protein, Total 6.7 g/dL (6.4-8.2)
--- NOTE | 2024-01-27 17:05 | ER ---
Nurse's Notes [facility] Name: Enid Kent Age: 38 yrs Sex: Female : 1985 Arrival Date: 01/27/2024 Time: 15:16 Bed 10 Private MD: Diagnosis: Rhabdomyolysis Presentation: 01/26 15:37 Chief complaint: Patient states: STATES HAD BLOOD WORK DONE YESTERDAY WITH PCP. CK db LEVEL 14,400 YESTERDAY. Coronavirus screen: Client denies travel out of the [place] in the last 14 days. At this time, the client does not indicate any symptoms associated with coronavirus-19. Ebola Screen: Patient negative for fever greater than or equal to 101.5 degrees Fahrenheit, and additional compatible Ebola Virus Disease symptoms Patient denies exposure to infectious person. Patient denies travel to an Ebola-affected area in the 21 days before illness onset. No symptoms or risks identified at this time. Initial Sepsis Screen: Does the patient meet any 2 criteria? No. Patient's initial sepsis screen is negative. Does the patient have a suspected source of infection? No. Patient's initial sepsis screen is negative. Risk Assessment: Do you want to hurt yourself or someone else? Patient reports no desire to harm self or others. Onset of symptoms Onset of symptoms was January 22, 2024. 15:37 Method Of Arrival: Ambulatory db 15:37 Acuity: ONEIL 3 db Triage Assessment: 15:40 General: Appears in no apparent distress. comfortable, Behavior is calm, cooperative. db Pain: Complains of pain in right arm, left arm, right leg and left leg. Neuro: Level of Consciousness is awake, alert, obeys commands, Oriented to person, place, time, situation. Respiratory: Airway is patent Respiratory effort is even, unlabored, Respiratory pattern is regular, symmetrical. 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 - Infectious Disease History:: Denies. - Social history:: Smoking status: Patient denies any tobacco usage or history of. Screenin:45 [facility] ED Fall Risk Assessment (Adult) History of falling in the last 3 months, me1 including since admission No falls in past 3 months (0 pts) Confusion or Disorientation No (0 pts) Intoxicated or Sedated No (0 pts) Impaired Gait No (0 pts) Mobility Assist Device Used No (0 pt) Altered Elimination No (0 pt) Score/Fall Risk Level 0 - 2 = Low Risk Maintained a safe environment, Provided non-skid footwear, Hourly rounding (assess needs \T\ fall precautionary measures) done. Abuse screen: Denies threats or abuse. Nutritional screening: No deficits noted. Tuberculosis screening: No symptoms or risk factors identified. Assessment: 15:45 General: Appears comfortable, well groomed, well developed, well nourished, Behavior is me1 calm, cooperative, appropriate for age, Reports STATES HAD BLOOD WORK DONE YESTERDAY WITH PCP. CK LEVEL 14,400 YESTERDAY. Pain: Denies pain. Neuro: Level of Consciousness is awake, alert, obeys commands, Oriented to person, place, time, situation, Appropriate for age. Cardiovascular: Patient's skin is warm and dry. Respiratory: Airway is patent Respiratory effort is even, unlabored, Respiratory pattern is regular, symmetrical. GI: No signs and/or symptoms were reported involving the gastrointestinal system. : No signs and/or symptoms were reported regarding the genitourinary system. EENT: No signs and/or symptoms were reported regarding the EENT system. Derm: Skin is intact, is healthy with good turgor, Skin is pink, warm \T\ dry. Musculoskeletal: No signs and/or symptoms reported regarding the musculoskeletal system. Vital Signs: 15:37 BP 136 / 65; Pulse 75; Resp 18; Temp 98.6(O); Pulse Ox 97% ; Weight 77.11 kg; Height 5 db ft. 2 in. ; Pain 2/10; 16:39 BP 115 / 76; Pulse 58; Resp 16; Pulse Ox 100% ; me1 17:09 BP 118 / 69; Pulse 66; Resp 18; Pulse Ox 100% ; me1 18:00 BP 116 / 73; Pulse 59; Resp 16; Pulse Ox 100% ; me1 18:40 BP 141 / 79; Pulse 52; Resp 16; Pulse Ox 98% ; me1 15:37 Body Mass Index 31.09 (77.11 kg, 157.48 cm) db 15:37 Pain Scale: Adult db ED Course: 15:19 Patient arrived in ED. im 15:39 Abilio Mortensen MD is Attending Physician. ec2 15:40 Triage completed. db 15:40 Arm band placed on Patient placed. db 15:45 Patient has correct armband on for positive identification. Bed in low position. Call me1 light in reach. Side rails up X 1. Provided Education on: POC. Verbalized understanding. . Client placed on continuous cardiac and pulse oximetry monitoring. NIBP monitoring applied. commercial finance analyst on. Pulse ox on. NIBP on. 15:45 No provider procedures requiring assistance completed. me1 16:02 Jen De La Cruz, ERNESTO is Primary Nurse. me1 16:13 Initial lab(s) drawn, by me, sent to lab. Inserted saline lock: 22 gauge in right me1 antecubital area, using aseptic technique. 16:27 LFT's Sent. me1 16:27 Basic Metabolic Panel Sent. me1 16:27 CBC with Diff Sent. me1 17:04 Braulio Wang MD is Hospitalizing Provider. ec2 17:54 Patient admitted, IV remains in place. bp Administered Medications: 16:38 Drug: NS 0.9% IV 1000 ml IV at 1 bolus Per protocol; 1000 mL bolus Route: IV; Rate: 1 me1 bolus; Site: right antecubital; 17:55 Follow up: IV Status: Completed infusion; IV Intake: 1000ml bp 16:38 Drug: NS 0.9% IV 1000 ml IV at 1 bolus Per protocol; 1000 mL bolus Route: IV; Rate: 1 me1 bolus; Site: right antecubital; 17:54 Follow up: IV Status: Completed infusion; IV Intake: 1000ml bp 16:39 Not Given (Patient Refused): diazepam2 mg IVP once me1 18:01 Drug: Diazepam PO 2 mg PO once Route: PO; bp 18:01 Follow up: Response: No adverse reaction bp Medication: 15:45 VIS not applicable for this client. me1 Intake: 17:54 IV: 1000ml; Total: 1000ml. bp 17:55 IV: 1000ml; Total: 2000ml. bp Outcome: 17:05 Decision to Hospitalize by Provider. ec2 17:54 Admitted to Med/surg accompanied by tech, via wheelchair, room 413, bp 17:54 Condition: stable 17:54 Instructed on the need for admit, 19:14 Patient left the ED. me1 Signatures: Henrique Heck RN RN bp Marimar Holguin, ERNESTO RN db Petty Russell Michelle, RN RN me1 Abilio Mortensen MD MD ec2 Corrections: (The following items were deleted from the chart) 15:43 15:37 Chief complaint: Patient states: STATES HAD BLOOD WORK DONE YESTERDAY WITH PCP. db TOLD CREATININE IS HIGH db 16:40 15:37 Chief complaint: Patient states: STATES HAD BLOOD WORK DONE YESTERDAY WITH PCP. me1 CK LEVEL 14,400 YESTERDAY db
--- NOTE | 2024-01-27 17:05 | EDPHYS ---
Physician Documentation [facility] Name: Enid Kent Age: 38 yrs Sex: Female : 1985 Arrival Date: 01/27/2024 Time: 15:16 Bed 10 Private MD: ED Physician Abilio Mortensen HPI: 01/26 15:45 This 38 yrs old Female presents to ER via Ambulatory with complaints of ec2 Abnormal Lab Results. 15:45 Patient arrives today for evaluation of abnormal lab results. Patient was seen ec2 outpatient, had lab work, had a CK level as well as BMP that showed marked CK elevation at greater than 14,400. External review of results by me performed. Patient reports excessive exercise last week.. 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 - Infectious Disease History:: Denies. - Social history:: Smoking status: Patient denies any tobacco usage or history of. ROS: 15:45 Constitutional: as per hpi ec2 Exam: 15:45 Constitutional: GEN: NAD Head: atraumatic Eyes: EOMI Ears: External ears are ec2 normal. CV: regular rate LUNGS: no respiratory distress ABD: non-distended SKIN: no evidence of rashes MSK: no evidence of trauma Vital Signs: 15:37 BP 136 / 65; Pulse 75; Resp 18; Temp 98.6(O); Pulse Ox 97% ; Weight 77.11 kg; Height 5 db ft. 2 in. ; Pain 2/10; 16:39 BP 115 / 76; Pulse 58; Resp 16; Pulse Ox 100% ; me1 17:09 BP 118 / 69; Pulse 66; Resp 18; Pulse Ox 100% ; me1 18:00 BP 116 / 73; Pulse 59; Resp 16; Pulse Ox 100% ; me1 18:40 BP 141 / 79; Pulse 52; Resp 16; Pulse Ox 98% ; me1 15:37 Body Mass Index 31.09 (77.11 kg, 157.48 cm) db 15:37 Pain Scale: Adult db MDM: 15:41 Patient medically screened. ec2 15:46 Data reviewed: vital signs. ED course: Patient arrives today for elevated CK levels. ec2 Examination remarkable for well-appearing nontoxic individual has reassuring hemodynamics. Will obtain lab work, repeat CK level, give the patient crystalloid and Valium. Suspect rhabdomyolysis. Evaluating for renal dysfunction. Evaluating for electrolyte disturbances. . 16:59 ED course: Metabolic profile shows appropriate renal function with a creatinine of ec2 0.97, yesterday had renal function with a creatinine of 0.74 at outside hospital, CBC is reassuring, urine is noninfectious appearing. testing negative . 17:04 ED course: LFTs slightly elevated. CPK elevated at 4600. Will admit for continued fluid ec2 resuscitation. Discussed with hospitalist, pending admission . 17:21 ED course: EKG independently reviewed and interpreted by me, shows normal sinus rhythm, ec2 rate of 59, no acute ST segment elevations, intervals are nonactionable.. 01/26 15:41 Order name: Basic Metabolic Panel; Complete Time: 16:58 ec2 01/26 15:41 Order name: CBC with Diff; Complete Time: 16:58 ec2 01/26 15:41 Order name: UAM; Complete Time: 16:58 ec2 01/26 15:41 Order name: Test, Urine; Complete Time: 16:58 ec2 01/26 15:45 Order name: CK; Complete Time: 17:04 ec2 01/26 15:46 Order name: LFT's; Complete Time: 17:04 ec2 01/26 15:41 Order name: EKG; Complete Time: 15:41 ec2 01/26 15:41 Order name: Cardiac monitoring; Complete Time: 17:20 ec2 01/26 15:41 Order name: EKG - Nurse/Tech; Complete Time: 17:20 ec2 01/26 15:41 Order name: IV Saline Lock; Complete Time: 16:27 ec2 01/26 15:41 Order name: Labs collected and sent; Complete Time: 16:27 ec2 01/26 15:41 Order name: O2 Per Protocol; Complete Time: 16:27 ec2 01/26 15:41 Order name: O2 Sat Monitoring; Complete Time: 16:27 ec2 Administered Medications: 16:38 Drug: NS 0.9% IV 1000 ml IV at 1 bolus Per protocol; 1000 mL bolus Route: IV; Rate: 1 me1 bolus; Site: right antecubital; 17:55 Follow up: IV Status: Completed infusion; IV Intake: 1000ml bp 16:38 Drug: NS 0.9% IV 1000 ml IV at 1 bolus Per protocol; 1000 mL bolus Route: IV; Rate: 1 me1 bolus; Site: right antecubital; 17:54 Follow up: IV Status: Completed infusion; IV Intake: 1000ml bp 16:39 Not Given (Patient Refused): diazepam2 mg IVP once me1 18:01 Drug: Diazepam PO 2 mg PO once Route: PO; bp 18:01 Follow up: Response: No adverse reaction bp Disposition Summary: 01/27/24 17:05 Hospitalization Ordered Notes: Hospitalization Status: Inpatient Admission ec2 Provider: Braulio Wang ec2 Location: Telemetry/MedSurg (Inpatient) ec2 Condition: Stable ec2 Problem: new ec2 Symptoms: have improved ec2 Bed/Room Type: Standard ec2 Room Assignment: 413(01/27/24 17:46) Diagnosis - Rhabdomyolysis ec2 Forms: - Medication Reconciliation Form ec2 - SBAR form ec2 - Leadership Thank You Letter ec2 Signatures: Dispatcher [employer] EDRI Adrián Boyle FNP-[facility] TREATMENT SPECIALIST-[facility] Henrique Heck, RN RN Génesis Stock Danielle, RN ERNESTO db Jen De La Cruz RN RN me1 Abilio Mortensen MD MD ec2 Corrections: (The following items were deleted from the chart) 15:45 15:45 CREATINE PHOSPHOKINASE+C.LAB.BRZ ordered. [facility] 17:46 17:05 ec2 eb
--- NOTE | 2024-01-27 17:54 | P.HP ---
Certification for Inpatient Patient admitted to: Observation With expected LOS: <2 Midnights Patient will require the following post-hospital care: None Practitioner: I am a practitioner with admitting privileges, knowledge of patient current condition, hospital course, and medical plan of care. Services: Services provided to patient in accordance with Admission requirements found in Title 42 Section 412.3 of the Code of Federal Regulations Patient History Date of Service: 01/27/24 Reason for admission: rhabdomyolysis History of Present Illness: 38-year-old otherwise healthy female presents to the ER with complaints of abnormal labs with elevated CPK of around 14,000. She reports she has been working out very hard the days prior and feeling very sore with limited use of her upper extremities due to pain. Patient was evaluated in the ER and had mild increase in her creatinine over the outpatient labs and CPK level was 4598. AST, ALT also mildly elevated. 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 moist/pink, EOMI Neck: Supple Respiratory: Normal air movement Cardiovascular: No edema Gastrointestinal: Non-distended Musculoskeletal: No tenderness Integumentary: No rashes Neurological: Normal speech, Normal strength at 5/5 x4 extr, Normal tone, Normal affect - Studies Laboratory Data (last 24 hrs) 01/27/24 01/27/24 01/27/24 16:10 16:10 16:10 WBC 5.20 Hgb 11.7 L Hct 34.8 L Plt Count 207 Sodium 139 Potassium 3.9 BUN 10 Creatinine 0.97 Glucose 111 H Total Bilirubin 0.2 AST 238 H ALT 153 H Alkaline Phosphatase 54 Assessment and Plan - Plan Assessment: Rhabdomyolysis Transaminitis Plan: Rhabdomyolysis Transaminitis Fluids overnight, encourage oral intake Repeat CMP, CPK in the morning Possible discharge in the morning DVT PPX: Lovenox Code status: Full Discharge Plan: Home Plan to discharge in: 24 Hours - Advance Directives Does patient have a Living Will: No Does patient have a Durable POA for Healthcare: No - Code Status/Comfort Care Code Status Assessed: Yes (Full code) Critical Care: No Time Spent Managing Pts Care (In Minutes): 55
[2024-01-27] MEDS ORDERED: DIAZEPAM 2 MG TABLET ONE (17:57)
[2024-01-27] MEDS ORDERED: ACETAMINOPHEN 325 MG TABLET PO PRN (19:17)
[2024-01-27] MEDS ORDERED: ONDANSETRON 4 MG/2 ML VIAL IV PRN (19:17)
[2024-01-27 19:18] VITALS: BMI 31.1
[2024-01-27 20:03] VITALS: O2SAT 98
[2024-01-27] MEDS: NA CHLORIDE 0.9% 1,000 ML IV SCH (21:16)
[2024-01-28] MEDS: ENOXAPARIN 40 MG/0.4 ML SQ SCH (07:36)
[2024-01-28 07:41] LABS: Absolute Eosinophils 0.1 K/uL (0-0.5); Absolute Monocytes 0.3 K/uL (0.1-1.3); Absolute Neutrophil 2.3 K/uL (1.8-8.0); Basophils % 0.4 % (0-1.3); Eosinophils % 2.6 % (0-4.4); Hematocrit 33.8 % (36.0-45.0); Hemoglobin 11.4 g/dL (12.0-15.0); Lymphocytes % 42.1 % (15.3-44.8); MCH 27.9 pg (27.0-35.0); MCHC 33.7 g/dL (32.0-36.0); MCV 82.9 fL (80-100); MPV 8.1 fL (7.6-11.3); Monocytes % 6.7 % (3.3-12.3); Neutrophils % 48.2 % (41.7-73.7); Nucleated Red Blood Cells % 0.1 % (0-0); Platelets 195 thou/uL (152-406); RBC Red Blood Cell Count 4.08 M/uL (3.86-4.86); Red Cell Distribution Width 13.4 % (12.1-15.2)
[2024-01-28 08:09] LABS: Albumin/Globulin Ratio 0.9 (1.1-1.8); Anion Gap 9.9 mEq/L (5.0-15.0); Bilirubin Total 0.2 mg/dL (0.2-1.0); Globulin 3.2 g/dL (2.3-3.5); Potassium 3.9 mEq/L (3.5-5.1); Protein, Total 6.2 g/dL (6.4-8.2)
[2024-01-28 08:29] VITALS: BP 113/66; TEMP 97.7
--- NOTE | 2024-01-28 12:09 | EKG ---
Test Date: 2024-01-27 Test Time: 17:18:47 Scoop Machine Operator: MEASUREMENT RESULTS: Intervals: Rate: 59 ND: 146 QRSD: 84 QT: 444 QTc: 439 [place]: P: 23 ND: 146 QRS: 64 T: 50 INTERPRETIVE STATEMENTS: Sinus bradycardia with sinus arrhythmia Otherwise normal ECG No previous ECG available for comparison Electronically Signed On 01-28-24 12:07:30 CDT by Kenneth Schuler
--- NOTE | 2024-01-28 12:28 | P.DS ---
Admission Date: 01/27/24 Discharge Date: 01/28/24 Disposition: ROUTINE DISCHARGE Discharge Condition: GOOD Reason for Admission: rhabdomyolysis Brief History of Present Illness: 38-year-old otherwise healthy female presents to the ER with complaints of abnormal labs with elevated CPK of around 14,000. She reports she has been working out very hard the days prior and feeling very sore with limited use of her upper extremities due to pain. Patient was evaluated in the ER and had mild increase in her creatinine over the outpatient labs and CPK level was 4598. AST, ALT also mildly elevated. ED provider wishes to admit under observation for rhabdomyolysis Hospital Course: Assessment: Rhabdomyolysis Transaminitis Patient was admitted to the hospital for rhabdomyolysis with an initial CPK of 4598 and creatinine of 0.97. She was given aggressive IV fluids and oral intake was encouraged, overnight her CPK decreased to 2379 and cr improved to 0.68. Patient is stable for discharge at this time and encouraged liberal oral fluid intake. Avoid strenuous exercise for the next 2 weeks. Please follow up with your primary care doctor in the next 2 weeks Vital Signs/Physical Exam: Temp Pulse Resp BP Pulse Ox 97.7 F 60 15 113/66 98 01/28/24 08:00 01/28/24 08:00 01/28/24 08:00 01/28/24 08:00 01/28/24 08:00 General: Alert, In no apparent distress, Oriented x3 HEENT: Atraumatic, PERRLA Neck: Supple, JVD not distended Respiratory: Normal air movement Cardiovascular: No edema, Normal S1 S2 Gastrointestinal: Normal bowel sounds, Non-distended Musculoskeletal: No tenderness Integumentary: No rashes Neurological: Normal speech, Normal tone, Normal affect Laboratory Data at Discharge: WBC 4.90 thou/uL (4.3-10.9) 01/28/24 05:57 Hgb 11.4 g/dL (12.0-15.0) L 01/28/24 05:57 Hct 33.8 % (36.0-45.0) L 01/28/24 05:57 Plt Count 195 thou/uL (152-406) 01/28/24 05:57 Sodium 138 mEq/L (136-145) 01/28/24 05:57 Potassium 3.9 mEq/L (3.5-5.1) 01/28/24 05:57 BUN 9 mg/dL (7-18) 01/28/24 05:57 Creatinine 0.68 mg/dL (0.55-1.02) 01/28/24 05:57 Glucose 90 mg/dL (74-106) 01/28/24 05:57 Total Bilirubin 0.2 mg/dL (0.2-1.0) 01/28/24 05:57 AST 147 U/L (15-37) H 01/28/24 05:57 ALT 119 U/L (13-56) H 01/28/24 05:57 Alkaline Phosphatase 45 U/L (45-117) 01/28/24 05:57 Physician Discharge Instructions: Patient was admitted to the hospital for rhabdomyolysis with an initial CPK of 4598 and creatinine of 0.97. She was given aggressive IV fluids and oral intake was encouraged, overnight her CPK decreased to 2379 and cr improved to 0.68. Patient is stable for discharge at this time and encouraged liberal oral fluid intake. Avoid strenuous exercise for the next 2 weeks. Please follow up with your primary care doctor in the next 2 weeks Diet: Regular Activity: Ad alfredo Followup: Enid Cuenca MD [Primary Care Provider] - 1-2 Weeks Time spent managing pt's care (in minutes): 41
== END 2024-01-28 09:57 | disposition home or self-care (01) ==
LOC: ER 15:16 → ERHOLD 17:37 → 4TH 17:54
PROVIDERS: ADMIT Hospitalist; ATTEND Hospitalist
DX: M62.82 Rhabdomyolysis (principal); R74.01 Elevation of levels of liver transaminase levels
CPT/HCPCS: 36415; 80048; 80053; 80076; 81001; 81025; 82550; 85025; 93005; 96360; 99285; G0378; J1650; J7030

== ENCOUNTER 2024-03-08 23:03 | Emergency (ER) | payer BC ==
--- OUTSIDE RECORDS SUMMARY | 2024-03-08 23:08 | XMS REPORT | Continuity of Care Document ---
Author Name Unknown Address [address] [place] [address] [facility] thconnect Address [address] [place] [address] Care Team Providers Care Mayonnaise Mixer Name Role Phone Unknown, Physician Primary Care Physician Emmanuel Hernándezh Attending Clinician Unavailable ENID CUENCA Attending Clinician Unavailable ENID CUENCA Attending Clinician Unavailable HARLAN FORBES Attending Clinician Unavailable Destiny Tompkins Attending Clinician [phone] Lab, Myles Michel Attending Clinician Unavailable DESTINY ASHTON Attending Clinician Unavailable Harlan Hanna Attending Clinician [phone] Enid Cuenca MD Attending Clinician [phone] CLYDE ESCOBAR Attending Clinician Unavailab le Doctor Unassigned, [place] Attending Clinician U YAJAIRA Dacosta Attending Clinician Unavailable Yajaira Alex Attending Clinician [phone] Lab, Ang Valentin Db Attending Clinician Unavailable Unknown, Attending Attending Clinician Unavailab LETY Mir Attending Clinician Unavailable Lety Escobar PA-C Attending Clinician [phone] HERBERT BAILEY Attending Clinician Unavailable Alex SAAVEDRA, Rose Espino Attending Clinician [phone] ROSE JOHNSON Attending Clinician Unavailable Henrique Chowdhury CRNA Attending Clinician [phone] Garcia Hernández MD Attending Clinician [phone] Pob, [facility] Main Attending Clinician Akash Montesinos NP, Lex Attending Clinician + [phone] LEX MONTESINOS Attending Clinician Unavaildorina duffy P[facility], [facility] Attending Clinician UnaNadya Rogers MD Attending Clinician NADYA HEART Attending Clinician Hannah berna Lovell RN, Jess S Attending Clinician Unavailobinna Lopes MD, Jarod Rod Attending Clinician [phone] JAROD LOPES Attending Clinician Unavailable ROSE JOHNSON Admitting Clinician Unavailable Rose Johnson MD Admitting Clinician [phone] LEX MONTESINOS Admitting Clinician UnavailJAROD Umanzor Admitting Clinician Unavailable Payers Payer Name Policy Type Policy Number Effective Date Expirati on Date Source [facility] [id number] 2018 00:00:00 Problems Condition Name Condition Details Condition Category Status Onset Date Resolution Date Last Treatment Date Treating Clinician Comments Source Sleep disturbanc e Sleep disturbanc e Disease Active 09-13 00:00: 00 [facility] Insomnia, unspecifie d type Insomnia, unspecifie d type Disease Active - 00:00: 00 [facility] Dizziness Dizziness Disease Active 2-28 00:00: 00 [facility] Obesity (BMI 30-39.9) Obesity (BMI 30-39.9) Disease Active - 00:00: 00 [facility] BMI 30.0-30.9, adult BMI 30.0-30.9, adult Disease Active 3-04 00:00: 00 [facility] Sciatic nerve pain, right Sciatic nerve pain, right Disease Active 3-04 00:00: 00 [facility] Dysuria Dysuria Disease Active 2-08 00:00: 00 [facility] Pap smear of cervix declined Pap smear of cervix declined Disease Active 2-08 00:00: 00 [facility] Irregular menstrual cycle Irregular menstrual cycle Disease Active 2- 00:00: 00 [facility] Encounter for fertility preservati on counseling Encounter for fertility preservati on counseling Disease Active 2- 00:00: 00 [facility] COVID-19 virus infection COVID-19 virus infection Disease Active 08-10 00:00: 00 [facility] Runny nose Runny nose Disease Active 08-10 00:00: 00 [facility] Sore throat Sore throat Disease Active 08-10 00:00: 00 [facility] Insect sting allergy, current reaction Insect sting allergy, current reaction Problem Active [facility] Constipati on Constipati on Problem Active [facility] Migraine Migraine Problem Active [facility] Abdominal bloating Abdominal bloating Problem Active [facility] Allergic state Allergic state Problem Active [facility] Daytime somnolence Daytime somnolence Problem Active [facility] Repetitive intrusions of sleep Repetitive intrusions of sleep Problem Active [facility] Chronic fatigue Chronic fatigue Problem Active [facility] Asthma Asthma Problem Active [facility] Mixed hyperlipid emia Mixed hyperlipid emia Problem Active [facility] Iron deficiency anemia, unspecifie d iron deficiency anemia type Iron deficiency anemia, unspecifie d iron deficiency anemia type Problem Active [facility] Right ovarian cyst Right ovarian cyst Disease Resolve d 3- 00:00: 00 2022-08-28 00:00:00 2022-08-28 17:22:11 Overview: Formattin g of this note might be different from the original. Added automatic ally from request for surgery [id number] [facility] Simple adnexal cyst greater than 5 cm in diameter in premenopau yadiel patient Simple adnexal cyst greater than 5 cm in diameter in premenopau yadiel patient Disease Resolve d 2022- 3-07 00:00: 00 2022-08-28 00:00:00 2022-08-28 17:22:07 [facility] Dermoid cyst of ovary, right Dermoid cyst of ovary, right Disease Resolve d 2022- 3-04 00:00: 00 2022-08-28 00:00:00 2022-08-28 17:22:24 [facility] Vulvar itching Vulvar itching Disease Resolve d 2022- 3-04 00:00: 00 2022-08-28 00:00:00 2022-08-28 17:22:13 [facility] Pain pelvic Pain pelvic Disease Resolve d 3-04 00:00: 00 2022-08-28 00:00:00 2022-08-28 17:22:12 [facility] Vaginal discharge Vaginal discharge Disease Resolve d 2-08 00:00: 00 2022-08-28 00:00:00 2022-08-28 17:22:13 [facility] Allergies, Adverse Reactions, Alerts Allergy Name Allergy Type Status Severity Reaction(s) Onset Date Inactive Date Treating Clinician Comments Source NO KNOWN ALLERGIE S Drug Class Active [facility] Social History Social Habit Start Date Stop Date Quantity Comments Source Gender identity [facility] Alcoholic beverage intake 2024-02-04 00:00:00 2024-02-04 00:00:00 Lifetime non-drinker (finding) [facility] History of Social function 2023-07-01 00:00:00 2023-07-01 00:00:00 [facility] Alcohol intake 2023-07-01 00:00:00 2023-07-01 00:00:00 Lifetime non-drinker (finding) [facility] Exposure to SARS-CoV-2 (event) 2022-08-30 00:00:00 2022-09-09 08:30:00 Not sure [facility] Tobacco use and exposure 2022-06-11 00:00:00 2022-06-11 00:00:00 Smokeless tobacco non-user [facility] Sex Assigned At 1985 00:00:00 1985 00:00:00 [facility] Smoking Status Start Date Stop Date Source Tobacco smoking consumption unknown [facility] Never smoked tobacco [facility] Medications Ordered Medication Name Filled Medication Name Start Date Stop Date Current Medication? Ordering Clinician Indication Dosage Frequency Signature (SIG) Comments Components Source methocarbam oL 500 mg tablet 01-25 00:00: 00 Yes [id number] 500mg Take 1 tablet by mouth 3 (three) times daily as needed for Pain (scale 7-10). [facility] cetirizine HCl/pseudoe phedrine (ALLERGY-D, CETIRIZINE, ORAL) 07-01 16:32: 12 07-01 00:00 :00 No Take by mouth. [facility] dexamethaso ne sod phos PF injection 10 mg 2022-05 17:45: 00 04-16 16:57 :00 No [id number] 10mg [facility] ibuprofen 600 mg tablet 2022-05 00:00: 00 Yes [id number] 600mg Take 1 tablet by mouth in the morning and 1 tablet at noon and 1 tablet in the evening. Take with meals. [facility] albuterol 90 mcg/actuati on inhaler 2022-05 00:00: 00 07-01 00:00 :00 No [id number] 2{puff} Inhale 2 Puffs every 6 (six) hours as needed for Wheezing or Shortness of Breath. [facility] Guaifenesin 1,200 mg tablet 2022-05 00:00: 00 07-01 00:00 :00 No [id number] 1200mg Take 1 tablet by mouth in the morning and 1 tablet in the evening. [facility] pseudoephed rine HCl (SUDAFED ORAL) 12-09 17:00: 48 12-09 00:00 :00 No Take by mouth. [facility] benzonatate (TESSALON PERLES) 100 mg capsule 12-09 00:00: 00 07-01 00:00 :00 No [id number] Take 1-2 capsules three times a day as needed for cough. [facility] bromphenira mine-pseudo ephedrine-D M (BROMFED DM) 2-30-10 mg/5 mL syrup 12-09 00:00: 00 07-01 00:00 :00 No [id number] 10mL Take 10 mL by mouth 4 (four) times daily as needed for Congestion /Allergies . [facility] cetirizine HCl/pseudoe phedrine (ALLERGY-D, CETIRIZINE, ORAL) 09-09 15:58: 45 Yes Take by mouth. [facility] pseudoephed rine HCl (SUDAFED ORAL) 08-28 15:37: 59 Yes Take by mouth. [facility] lactated ringers IV infusion 1,000 mL 08-14 18:45: 00 Yes 1000mL at 75 mL/hr, 1,000 mL, IV Infusion, CONTINUOUS , Starting on Thu08/14/22 at 1345, Until Discontinu ed, Routine, PACU [facility] HYDROcodone -acetaminop hen (NORCO 5) 5-325 mg tablet 1 tablet 08-14 18:45: 00 08-14 20:07 :00 No 1{tbl} 1 tablet, Oral, ONCE, 1 dose, On Yasmin 08/14/22 at 1345, Routine, PACU [facility] FENTanyl PF (SUBLIMAZE (PF)) injection 25 mcg 08-14 18:41: 29 Yes 25ug 25 mcg, Slow IV Push, Q5MIN PRN, 4 doses, Starting on Yasmin 08/14/22 at 1341, Until Discontinu ed, Routine, Pain (scale 4-6), PACU [facility] HYDROmorphO ne (DILAUDID) injection 0.2 mg 08-14 18:41: 29 Yes .2mg 0.2 mg, Slow IV Push, Q5MIN PRN, 10 doses, Starting on Yasmin 08/14/22 at 1341, Until Discontinu ed, Routine, Pain (scale 7-10), PACU
Us e approved by (Faculty): PACU USE -ANESTHESI A SERVICE-HY DROMORPHON E INJECTIONS [facility] ondansetron (ZOFRAN (PF)) injection 4 mg 08-14 18:41: 29 08-14 21:07 :00 No 4mg 4 mg, Slow IV Push, PRN, 1 dose, Starting on Yasmin 08/14/22 at 1341, Until Discontinu ed, Routine, Nausea and Vomiting (N/V), PACU [facility] sugammadex (BRIDION) injection 08-14 18:10: 00 08-14 18:22 :33 No IV Push, ONCE INTRA PROCEDURE, Starting on Yasmin 08/14/22 at 1310, Until Yasmin 08/14/22 at 1322, Routine, Intra-op [facility] ketorolac (TORADOL) injection 08-14 17:43: 00 08-14 18:22 :33 No Slow IV Push, ONCE INTRA PROCEDURE, Starting on Yasmin 08/14/22 at 1243, Until Yasmin 08/14/22 at 1322, Routine, Intra-op [facility] pseudoephed rine HCl (SUDAFED ORAL) 08-14 17:19: 09 Yes Take by mouth. [facility] acetaminoph en ADULT (OFIRMEV) injection 08-14 17:10: 00 08-14 18:22 :33 No IV Infusion, Administer over 15 Minutes, ONCE INTRA PROCEDURE, Starting on Yasmin 08/14/22 at 1210, Until Yasmin 08/14/22 at 1322, Routine, Intra-op [facility] PHENYLephri ne 1000 mcg/10 mL in 0.9% NaCl syringe 08-14 16:27: 00 08-14 18:22 :33 No Slow IV Push, ONCE INTRA PROCEDURE, Starting on Yasmin 08/14/22 at 1127, Until Yasmin 08/14/22 at 1322, Routine, [facility] HYDROmorphO ne (DILAUDID) injection 08-14 15:45: 00 08-14 18:22 :33 No Intravenou s, ONCE INTRA PROCEDURE, Starting on Yasmin 08/14/22 at 1045, Until Yasmin 08/14/22 at 1322, Routine, Intra-op [facility] dexmedeTOMI Dine (PRECEDEX) injection 08-14 15:38: 00 08-14 18:22 :33 No Intravenou s, ONCE INTRA PROCEDURE, Starting on Yasmin 08/14/22 at 1038, Until Yasmin 08/14/22 at 1322, Routine, [facility] dexamethaso [facility] (DECADRON PHOSPHATE) injection 08-14 15:30: 00 08-14 18:22 :33 No IV Push, ONCE INTRA PROCEDURE, Starting on Yasmin 08/14/22 at 1030, Until Yasmin 08/14/22 at 1322, Routine, [facility] rocuronium (ZEMURON) injection 08-14 15:17: 00 08-14 18:22 :33 No IV Push, ONCE INTRA PROCEDURE, Starting on Yasmin 08/14/22 at 1017, Until Yasmin 08/14/22 at 1322, Routine, Intra-op [facility] lidocaine 1% (XYLOCAINE) 100 mg/10 mL (1 %) injection 08-14 15:17: 00 08-14 18:22 :33 No Intravenou s, ONCE INTRA PROCEDURE, Starting on Yasmin 08/14/22 at 1017, Until Yasmin 08/14/22 at 1322, Routine, Intra[facility]op [facility] propofoL IV infusion 08-14 15:16: 00 08-14 18:22 :33 No Intravenou s, ONCE INTRA PROCEDURE, Starting on Yasmin 08/14/22 at 1016, Until Yasmin 08/14/22 at 1322, Routine, Intra-op [facility] FENTanyl PF (SUBLIMAZE (PF)) injection 08-14 15:13: 00 08-14 18:22 :33 No Intravenou s, ONCE INTRA PROCEDURE, Starting on Yasmin 08/14/22 at 1013, Until Yasmin 08/14/22 at 1322, Routine, Intra-op [facility] ondansetron (ZOFRAN (PF)) injection 08-14 15:07: 00 08-14 18:22 :33 No Slow IV Push, ONCE INTRA PROCEDURE, Starting on Yasmin 08/14/22 at 1007, Until Yasmin 08/14/22 at 1322, Routine, Intra-op [facility] midazolam (VERSED) injection 08-14 15:07: 00 08-14 18:22 :33 No IV Push, ONCE INTRA PROCEDURE, Starting on Yasmin 08/14/22 at 1007, Until Yasmin 08/14/22 at 1322, Routine, Intra-op [facility] pseudoephed rine HCl (SUDAFED ORAL) 08-14 14:23: 21 Yes Take by mouth. [facility] bupivacaine (preserv free) (SENSORCAIN E MPF) 0.25 % (2.5 mg/mL) injection 08-14 13:07: 00 08-14 18:32 :05 No PRN, Starting on Yasmin 08/14/22 at 0807, Until Yasmin 08/14/22 at 1332, Routine, Intra-op [facility] sodium chloride 0.9 % irrigation solution 08-14 13:06: 00 08-14 18:32 :05 No PRN, Starting on Yasmin 08/14/22 at 0806, Until Yasmin 08/14/22 at 1332, Intra-op [facility] lactated ringers IV infusion 1,000 mL 08-14 12:00: 00 08-14 12:20 :00 No 1000mL at 42 mL/hr, 1,000 mL, IV Infusion, ONCE, 1 dose, On Yasmin 08/14/22 at 0700, Routine, DSU Pre-op [facility] lactated ringers IV infusion 08-14 11:56: 00 08-14 18:22 :33 No IV Infusion, CONTINUOUS PRN, Starting on Yasmin 08/14/22 at 0656, Until Yasmin 08/14/22 at 1322, Routine, Intra-op [facility] pseudoephed rine HCl (SUDAFED ORAL) 08-14 06:48: 45 Yes Take by mouth. [facility] ibuprofen 800 mg tablet 08-14 00:00: 00 08-28 00:00 :00 No [id number] 800mg Take 1 tablet by mouth every 8 (eight) hours as needed for Pain (scale 1-3) or Alternate with [place] for pain scale 4-6. [facility] HYDROcodone -acetaminop hen 5-325 mg tablet 08-14 00:00: 00 08-28 00:00 :00 No [id number] 1{tbl} Take 1 tablet by mouth every 6 (six) hours as needed for Pain (scale 7-10) or Pain (scale 4-6). Indication s: acute pain [facility] ondansetron (ZOFRAN) 4 mg tablet 08-14 00:00: 00 08-28 00:00 :00 No [id number] 4mg Take 1 tablet by mouth every 8 (eight) hours as needed for Nausea and Vomiting (N/V). Indication s: nausea and vomiting after surgery [facility] pseudoephed rine HCl (SUDAFED ORAL) 08-07 14:13: 24 Yes Take by mouth. [facility] docosahexae noic acid/epa (FISH OIL ORAL) 08-07 09:44: 52 08-07 00:00 :00 No Take by mouth. [facility] TUMERIC-GIN G-OLIVE-ORE G-CAPRYL ORAL 08-07 09:44: 43 08-07 00:00 :00 No Take by mouth. [facility] pseudoephed rine HCl (SUDAFED ORAL) 08-07 09:30: 45 Yes Take by mouth. [facility] fluticasone propionate 50 mcg/actuati on nasal spray 08-07 00:00: 00 07-01 00:00 :00 No [id number] 1{spray } Use 1 Mcdonough in each nostril in the morning. [facility] azelastine 137 mcg (0.1 %) nasal spray 08-07 00:00: 00 07-01 00:00 :00 No [id number] 1{spray } Use 1 Mcdonough in each nostril in the morning and 1 Mcdonough in the evening. Use in each nostril as directed [facility] benzonatate (TESSALON PERLES) 100 mg capsule 08-07 00:00: 00 12-09 00:00 :00 No [id number] Take 1-2 capsules three times a day as needed for cough. [facility] TUMERIC-GIN G-OLIVE-ORE G-CAPRYL ORAL 07-29 09:07: 41 Yes Take by mouth. [facility] gadobenate dimeglumine (MULTIHANCE -15 mL) injection 0.2 mL/kg 07-22 20:45: 00 07-22 20:39 :00 No [id number] 822280 .2mL/kg 0.2 mL/kg, Intravenou s, ONCE, 1 dose, On Thu07/22/22 at 1545, Routine [facility] triamcinolo ne acetonide 0.1 % cream 07-05 00:00: 00 08-07 00:00 :00 No [id number] Apply to area(s) 2 (two) times daily. [facility] terconazole 80 mg vaginal suppository 2-10 00:00: 00 06-17 05:59 :00 No [id number] 80mg Insert 1 Suppositor y into vagina at bedtime for 3 days. [facility] chlorhexidi ne (Peridex) 0.12 % solution 12-26 00:00: 00 01-10 04:59 :00 No [id number] 15mL Use 15 mL in the mouth or throat if needed for wound care for up to 14 days. [facility] amoxicillin -clavulanat e (Augmentin) 875-125 MG tablet 12-26 00:00: 00 01-06 04:59 :00 No [id number] 1{tbl} Q.5D Take 1 tablet by mouth 2 (two) times a day for 10 days. [facility] acetaminoph en 650 mg CR tablet 08-10 00:00: 00 Yes [id number] 650mg Take 1 tablet by mouth every 8 (eight) hours as needed for Pain or Fever. [facility] nystatin/ma alox/diphen hydrAMINE/l idocaine 2 % viscous 1:1:1:1 Susp suspension 08-10 00:00: 00 Yes [id number] 5mL Take 5 mL by mouth 4 (four) times daily as needed (Sore throat). Gargle and spit, do not swallow [facility] fluticasone propionate 50 mcg/actuati on nasal spray 08-10 00:00: 00 08-07 00:00 :00 No [id number] 1{spray } Use 1 Mcdonough in each nostril daily. [facility] nystatin/ma alox/diphen hydrAMINE/l idocaine 2 % viscous 1:1:1:1 Susp suspension 08-10 00:00: 00 08-07 00:00 :00 No [id number] 5mL Take 5 mL by mouth 4 (four) times daily as needed (Sore throat). Gargle and spit, do not swallow [facility] Immunizations Ordered Immunization Name Filled Immunization Name Date Status Comments Source TDAP 2022-09-09 00:00:00 Completed [facility] TDAP 2022-09-09 00:00:00 Completed [facility] TDAP 2022-09-09 00:00:00 Completed [facility] TDAP 2022-09-09 00:00:00 Completed [facility] TDAP 2022-09-09 00:00:00 Completed [facility] TDAP 2022-09-09 00:00:00 Completed [facility] TDAP 2022-09-09 00:00:00 Completed [facility] TDAP 2022-09-09 00:00:00 Completed [facility] TDAP 2022-09-09 00:00:00 Completed [facility] DTP 2002-11-25 00:00:00 Completed DTP 2002-11-25 00:00:00 Completed DTP 2002-11-25 00:00:00 Completed DTP 2002-11-25 00:00:00 Completed DTP 2002-11-25 00:00:00 Completed [facility] DTP 2002-11-25 00:00:00 Completed [facility] DTP 2002-11-25 00:00:00 Completed [facility] MMR 1999 00:00:00 Completed MMR 1999 00:00:00 Completed MMR 1999 00:00:00 Completed MMR 1999 00:00:00 Completed MMR 1999 00:00:00 Completed [facility] MMR 1999 00:00:00 Completed [facility] MMR 1999 00:00:00 Completed [facility] Hep B, Adol or Pedi Dosage 1998-05-14 00:00:00 Completed Hep B, Adol or Pedi Dosage 1998-05-14 00:00:00 Completed Hep B, Adol or Pedi Dosage 1998-05-14 00:00:00 Completed Hep B, Adol or Pedi Dosage 1998-05-14 00:00:00 Completed Hep B, Adol or Pedi Dosage 1998-05-14 00:00:00 Completed [facility] Hep B, Adol or Pedi Dosage 1998-05-14 00:00:00 Completed [facility] Hep B, Adol or Pedi Dosage 1998-05-14 00:00:00 Completed [facility] Hep B, Adol or Pedi Dosage 1998-01-15 00:00:00 Completed Hep B, Adol or Pedi Dosage 1998-01-15 00:00:00 Completed Hep B, Adol or Pedi Dosage 1998-01-15 00:00:00 Completed Hep B, Adol or Pedi Dosage 1998-01-15 00:00:00 Completed Hep B, Adol or Pedi Dosage 1998-01-15 00:00:00 Completed [facility] Hep B, Adol or Pedi Dosage 1998-01-15 00:00:00 Completed [facility] Hep B, Adol or Pedi Dosage 1998-01-15 00:00:00 Completed [facility] Hep B, Adol or Pedi Dosage 1997-11-14 00:00:00 Completed Hep B, Adol or Pedi Dosage 1997-11-14 00:00:00 Completed Hep B, Adol or Pedi Dosage 1997-11-14 00:00:00 Completed Hep B, Adol or Pedi Dosage 1997-11-14 00:00:00 Completed Hep B, Adol or Pedi Dosage 1997-11-14 00:00:00 Completed [facility] Hep B, Adol or Pedi Dosage 1997-11-14 00:00:00 Completed [facility] Hep B, Adol or Pedi Dosage 1997-11-14 00:00:00 Completed [facility] DTP 1991-12-14 00:00:00 Completed Polio (IPV/OPV) 1991-12-14 00:00:00 Completed DTP 1991-12-14 00:00:00 Completed Polio (IPV/OPV) 1991-12-14 00:00:00 Completed DTP 1991-12-14 00:00:00 Completed Polio (IPV/OPV) 1991-12-14 00:00:00 Completed DTP 1991-12-14 00:00:00 Completed Polio (IPV/OPV) 1991-12-14 00:00:00 Completed DTP 1991-12-14 00:00:00 Completed [facility] Polio (IPV/OPV) 1991-12-14 00:00:00 Completed [facility] DTP 1991-12-14 00:00:00 Completed [facility] Polio (IPV/OPV) 1991-12-14 00:00:00 Completed [facility] DTP 1991-12-14 00:00:00 Completed [facility] Polio (IPV/OPV) 1991-12-14 00:00:00 Completed [facility] DTP 1990-02-17 00:00:00 Completed Polio (IPV/OPV) 1990-02-17 00:00:00 Completed DTP 1990-02-17 00:00:00 Completed Polio (IPV/OPV) 1990-02-17 00:00:00 Completed DTP 1990-02-17 00:00:00 Completed Polio (IPV/OPV) 1990-02-17 00:00:00 Completed DTP 1990-02-17 00:00:00 Completed Polio (IPV/OPV) 1990-02-17 00:00:00 Completed DTP 1990-02-17 00:00:00 Completed [facility] Polio (IPV/OPV) 1990-02-17 00:00:00 Completed [facility] DTP 1990-02-17 00:00:00 Completed [facility] Polio (IPV/OPV) 1990-02-17 00:00:00 Completed [facility] DTP 1990-02-17 00:00:00 Completed [facility] Polio (IPV/OPV) 1990-02-17 00:00:00 Completed [facility] HIB 3 Dose Schedule 1989-12-21 00:00:00 Completed HIB 3 Dose Schedule 1989-12-21 00:00:00 Completed HIB 3 Dose Schedule 1989-12-21 00:00:00 Completed HIB 3 Dose Schedule 1989-12-21 00:00:00 Completed HIB 3 Dose Schedule 1989-12-21 00:00:00 Completed [facility] HIB 3 Dose Schedule 1989-12-21 00:00:00 Completed [facility] HIB 3 Dose Schedule 1989-12-21 00:00:00 Completed [facility] MMR 1989-03-20 00:00:00 Completed [facility] MMR 1989-03-20 00:00:00 Completed [facility] MMR 1989-03-20 00:00:00 Completed [facility] MMR 1989-03-20 00:00:00 Completed [facility] MMR 1989-03-20 00:00:00 Completed [facility] MMR 1989-03-20 00:00:00 Completed [facility] MMR 1989-03-20 00:00:00 Completed [facility] DTP 1988-06-20 00:00:00 Completed Polio (IPV/OPV) 1988-06-20 00:00:00 Completed DTP 1988-06-20 00:00:00 Completed Polio (IPV/OPV) 1988-06-20 00:00:00 Completed DTP 1988-06-20 00:00:00 Completed Polio (IPV/OPV) 1988-06-20 00:00:00 Completed DTP 1988-06-20 00:00:00 Completed Polio (IPV/OPV) 1988-06-20 00:00:00 Completed DTP 1988-06-20 00:00:00 Completed [facility] Polio (IPV/OPV) 1988-06-20 00:00:00 Completed [facility] DTP 1988-06-20 00:00:00 Completed [facility] Polio (IPV/OPV) 1988-06-20 00:00:00 Completed [facility] DTP 1988-06-20 00:00:00 Completed [facility] Polio (IPV/OPV) 1988-06-20 00:00:00 Completed [facility] DTP 1988-04-14 00:00:00 Completed Polio (IPV/OPV) 1988-04-14 00:00:00 Completed DTP 1988-04-14 00:00:00 Completed Polio (IPV/OPV) 1988-04-14 00:00:00 Completed DTP 1988-04-14 00:00:00 Completed Polio (IPV/OPV) 1988-04-14 00:00:00 Completed DTP 1988-04-14 00:00:00 Completed Polio (IPV/OPV) 1988-04-14 00:00:00 Completed DTP 1988-04-14 00:00:00 Completed [facility] Polio (IPV/OPV) 1988-04-14 00:00:00 Completed [facility] DTP 1988-04-14 00:00:00 Completed [facility] Polio (IPV/OPV) 1988-04-14 00:00:00 Completed [facility] DTP 1988-04-14 00:00:00 Completed [facility] Polio (IPV/OPV) 1988-04-14 00:00:00 Completed [facility] DTP 1988-02-19 00:00:00 Completed Polio (IPV/OPV) 1988-02-19 00:00:00 Completed DTP 1988-02-19 00:00:00 Completed Polio (IPV/OPV) 1988-02-19 00:00:00 Completed DTP 1988-02-19 00:00:00 Completed Polio (IPV/OPV) 1988-02-19 00:00:00 Completed DTP 1988-02-19 00:00:00 Completed Polio (IPV/OPV) 1988-02-19 00:00:00 Completed DTP 1988-02-19 00:00:00 Completed [facility] Polio (IPV/OPV) 1988-02-19 00:00:00 Completed [facility] DTP 1988-02-19 00:00:00 Completed [facility] Polio (IPV/OPV) 1988-02-19 00:00:00 Completed [facility] DTP 1988-02-19 00:00:00 Completed [facility] Polio (IPV/OPV) 1988-02-19 00:00:00 Completed [facility] HIB 3 Dose Schedule Unknown Completed [facility] Hep B, Adol or Pedi Dosage Unknown Completed [facility] Polio (IPV/OPV) Unknown Completed [facility] TDAP Unknown Completed [facility] MMR Unknown Completed [facility] DTP Unknown Completed [facility] HIB 3 Dose Schedule Unknown Completed [facility] Hep B, Adol or Pedi Dosage Unknown Completed [facility] Polio (IPV/OPV) Unknown Completed [facility] TDAP Unknown Completed [facility] MMR Unknown Completed [facility] DTP Unknown Completed [facility] HIB 3 Dose Schedule Unknown Completed [facility] Hep B, Adol or Pedi Dosage Unknown Completed [facility] Polio (IPV/OPV) Unknown Completed [facility] TDAP Unknown Completed [facility] HIB 3 Dose Schedule Unknown Completed [facility] MMR Unknown Completed [facility] DTP Unknown Completed [facility] Hep B, Adol or Pedi Dosage Unknown Completed [facility] Polio (IPV/OPV[facility] Unknown [facility] Completed [facility] MMR Unknown Completed [facility] DTP Unknown Completed [facility] HIB 3 Dose Schedule Unknown Completed [facility] Hep B, Adol or Pedi Dosage Unknown Completed [facility] Polio (IPV/OPV[facility] Unknown [facility] Completed [facility] MMR Unknown Completed [facility] DTP Unknown Completed [facility] HIB 3 Dose Schedule Unknown Completed [facility] Hep B, Adol or Pedi Dosage Unknown Completed [facility] Polio (IPV/OPV) Unknown Completed [facility] TDAP Unknown Completed [facility] MMR Unknown Completed [facility] DTP Unknown Completed [facility] HIB 3 Dose Schedule Unknown Completed [facility] Hep B, Adol or Pedi Dosage Unknown Completed [facility] Polio (IPV/OPV) Unknown Completed [facility] TDAP Unknown Completed [facility] MMR Unknown Completed [facility] DTP Unknown Completed [facility] HIB 3 Dose Schedule Unknown Completed [facility] Hep B, Adol or Pedi Dosage Unknown Completed [facility] Polio (IPV/OPV) Unknown Completed [facility] TDAP Unknown Completed [facility] MMR Unknown Completed [facility] DTP Unknown Completed [facility] HIB 3 Dose Schedule Unknown Completed [facility] Hep B, Adol or Pedi Dosage Unknown Completed [facility] Polio (IPV/OPV) Unknown Completed [facility] MMR Unknown Completed [facility] DTP Unknown Completed [facility] HIB 3 Dose Schedule Unknown Completed [facility] Hep B, Adol or Pedi Dosage Unknown Completed [facility] Polio (IPV/OPV) Unknown Completed [facility] MMR Unknown Completed [facility] DTP Unknown Completed [facility] HIB 3 Dose Schedule Unknown Completed [facility] Hep B, Adol or Pedi Dosage Unknown Completed [facility] Polio (IPV/OPV) Unknown Com[facility] TDAP Unknown Completed [facility] MMR Unknown Completed [facility] DTP Unknown Completed [facility] HIB 3 Dose Schedule Unknown Completed [facility] Hep B, Adol or Pedi Dosage Unknown Completed [facility] Polio (IPV/OPV) Unknown Completed [facility] TDAP Unknown Completed [facility] MMR Unknown Completed [facility] DTP Unknown Completed [facility] HIB 3 Dose Schedule Unknown Completed [facility] Hep B, Adol or Pedi Dosage Unknown Completed [facility] Polio (IPV/OPV) Unknown Completed [facility] TDAP Unknown Completed [facility] MMR Unknown Completed [facility] DTP Unknown Completed [facility] Vital Signs Vital Name Observation Time Observation Value Comments S ource Systolic blood pressure 2024-02-04 16:23:00 108 mm[Hg] [facility] Diastolic blood pressure 2024-02-04 16:23:00 74 mm[Hg] [facility] Heart rate 2024-02-04 16:23:00 62 /min [facility] Body temperature 2024-02-04 16:23:00 36.61 Kierra [facility] Body height 2024-02-04 16:23:00 157.5 cm [facility] Body weight 2024-02-04 16:23:00 76.658 kg [facility] BMI 2024-02-04 16:23:00 30.91 kg/m2 [facility] Oxygen saturation in Arterial blood by Pulse oximetry 2024-02-04 16:23:00 100 /min [facility] Systolic blood pressure 2024-01-26 16:50:00 109 mm[Hg] [facility] Diastolic blood pressure 2024-01-26 16:50:00 69 mm[Hg] [facility] Heart rate 2024-01-26 16:50:00 81 /min [facility] Body temperature 2024-01-26 16:50:00 36.89 Kierra [facility] Respiratory rate 2024-01-26 16:50:00 18 /min [facility] Body height 2024-01-26 16:50:00 162.6 cm [facility] Body weight 2024-01-26 16:50:00 80.287 kg [facility] BMI 2024-01-26 16:50:00 30.38 kg/m2 [facility] Oxygen saturation in Arterial blood by Pulse oximetry 2024-01-26 16:50:00 98 /min [facility] Systolic blood pressure 2023-09-14 18:34:00 118 mm[Hg] [facility] Diastolic blood pressure 2023-09-14 18:34:00 80 mm[Hg] [facility] Heart rate 2023-09-14 18:34:00 98 /min [facility] Body temperature 2023-09-14 18:34:00 36.72 Kierra [facility] Respiratory rate 2023-09-14 18:34:00 18 /min [facility] Body height 2023-09-14 18:34:00 158.8 cm [facility] Body weight 2023-09-14 18:34:00 78.155 kg [facility] BMI 2023-09-14 18:34:00 31.01 kg/m2 [facility] Oxygen saturation in Arterial blood by Pulse oximetry 2023-09-14 18:34:00 98 /min [facility] Systolic blood pressure 2023-07-01 22:31:00 109 mm[Hg] [facility] Diastolic blood pressure 2023-07-01 22:31:00 75 mm[Hg] [facility] Heart rate 2023-07-01 22:31:00 69 [facility] Body temperature 2023-07-01 22:31:00 36.72 Kierra [facility] Respiratory rate 2023-07-01 22:31:00 18 /min [facility] Body height 2023-07-01 22:31:00 158.8 cm [facility] Body weight 2023-07-01 22:31:00 79.516 kg [facility] BMI 2023-07-01 22:31:00 31.55 kg/m2 [facility] Oxygen saturation in Arterial blood by Pulse oximetry 2023-07-01 22:31:00 99 /min [facility] Systolic blood pressure 2023-04-16 16:29:00 111 mm[Hg] [facility] Diastolic blood pressure 2023-04-16 16:29:00 76 mm[Hg] [facility] Heart rate 2023-04-16 16:29:00 92 /min [facility] Body temperature 2023-04-16 16:29:00 36.83 Kierra [facility] Respiratory rate 2023-04-16 16:29:00 15 /min [facility] Body height 2023-04-16 16:29:00 157.5 cm [facility] Body weight 2023-04-16 16:29:00 77.622 kg [facility] BMI 2023-04-16 16:29:00 31.30 kg/m2 [facility] Oxygen saturation in Arterial blood by Pulse oximetry 2023-04-16 16:29:00 98 /min [facility] Systolic blood pressure 2022-12-09 21:28:00 116 mm[Hg] [facility] Diastolic blood pressure 2022-12-09 21:28:00 77 mm[Hg] [facility] Heart rate 2022-12-09 21:28:00 67 /min [facility] Body height 2022-12-09 21:28:00 157.5 cm [facility] Body weight 2022-12-09 21:28:00 79.516 kg [facility] BMI 2022-12-09 21:28:00 32.06 kg/m2 [facility] Oxygen saturation in Arterial blood by Pulse oximetry 2022-12-09 21:28:00 99 /min [facility] Systolic blood pressure 2022-09-09 20:59:00 112 mm[Hg] [facility] Diastolic blood pressure 2022-09-09 20:59:00 75 mm[Hg] [facility] Heart rate 2022-09-09 20:59:00 80 /min [facility] Body height 2022-09-09 20:59:00 157.5 cm [facility] Body weight 2022-09-09 20:59:00 77.338 kg [facility] BMI 2022-09-09 20:59:00 31.18 kg/m2 [facility] Oxygen saturation in Arterial blood by Pulse oximetry 2022-09-09 20:59:00 97 /min [facility] Systolic blood pressure 2022-08-28 20:36:00 114 mm[Hg] [facility] Diastolic blood pressure 2022-08-28 20:36:00 76 mm[Hg] [facility] Heart rate 2022-08-28 20:36:00 81 /min [facility] Body temperature 2022-08-28 20:36:00 36.78 Kierra [facility] Respiratory rate 2022-08-28 20:36:00 18 /min [facility] Body height 2022-08-28 20:36:00 157.5 cm [facility] Body weight 2022-08-28 20:36:00 78.019 kg [facility] BMI 2022-08-28 20:36:00 31.46 kg/m2 [facility] Systolic blood pressure 2022-08-14 20:29:00 114 mm[Hg] [facility] Diastolic blood pressure 2022-08-14 20:29:00 62 mm[Hg] [facility] Respiratory rate 2022-08-14 20:29:00 14 /min [facility] Oxygen saturation in Arterial blood by Pulse oximetry 2022-08-14 20:29:00 96 /min [facility] Heart rate 2022-08-14 20:15:00 96 /min [facility] Body temperature 2022-08-14 18:30:00 36.78 Kierra [facility] Body height 2022-08-07 19:00:00 157.5 cm [facility] Body weight 2022-08-07 19:00:00 78.019 kg [facility] BMI 2022-08-07 19:00:00 31.46 kg/m2 [facility] Respiratory rate 2022-08-14 18:19:00 18 /min [facility] Systolic blood pressure 2022-08-14 12:03:00 145 mm[Hg] [facility] Diastolic blood pressure 2022-08-14 12:03:00 83 mm[Hg] [facility] Heart rate 2022-08-14 12:03:00 93 /min [facility] Body temperature 2022-08-14 12:03:00 36.67 Kierra [facility] Respiratory rate 2022-08-14 12:03:00 16 /min [facility] Oxygen saturation in Arterial blood by Pulse oximetry 2022-08-14 12:03:00 100 /min [facility] Body height 2022-08-07 19:00:00 157.5 cm [facility] Body weight 2022-08-07 19:00:00 78.019 kg [facility] BMI 2022-08-07 19:00:00 31.46 kg/m2 [facility] Systolic blood pressure 2022-08-07 14:19:00 104 mm[Hg] [facility] Diastolic blood pressure 2022-08-07 14:19:00 71 mm[Hg] [facility] Heart rate 2022-08-07 14:19:00 75 /min [facility] Body temperature 2022-08-07 14:19:00 36.44 Kierra [facility] Body height 2022-08-07 14:19:00 158.8 cm [facility] Body weight 2022-08-07 14:19:00 78.019 kg [facility] BMI 2022-08-07 14:19:00 30.96 kg/m2 [facility] Oxygen saturation in Arterial blood by Pulse oximetry 2022-08-07 14:19:00 98 /min [facility] Systolic blood pressure 2022-07-29 14:08:00 125 mm[Hg] [facility] Diastolic blood pressure 2022-07-29 14:08:00 83 mm[Hg] [facility] Heart rate 2022-07-29 14:08:00 82 /min [facility] Body temperature 2022-07-29 14:08:00 36.67 Kierra [facility] Respiratory rate 2022-07-29 14:08:00 16 /min [facility] Body height 2022-07-29 14:08:00 157.5 cm [facility] Body weight 2022-07-29 14:08:00 76.975 kg [facility] BMI 2022-07-29 14:08:00 31.04 kg/m2 [facility] Oxygen saturation in Arterial blood by Pulse oximetry 2022-07-29 14:08:00 98 /min [facility] Systolic blood pressure 2022-07-08 14:07:00 127 mm[Hg] [facility] Diastolic blood pressure 2022-07-08 14:07:00 81 mm[Hg] [facility] Heart rate 2022-07-08 14:07:00 65 /min [facility] Body temperature 2022-07-08 14:07:00 36.5 Kierra [facility] Respiratory rate 2022-07-08 14:07:00 18 /min [facility] Body height 2022-07-08 14:07:00 157.5 cm [facility] Body weight 2022-07-08 14:07:00 77.293 kg [facility] BMI 2022-07-08 14:07:00 31.17 kg/m2 [facility] Systolic blood pressure 2022-07-04 19:32:00 116 mm[Hg] [facility] Diastolic blood pressure 2022-07-04 19:32:00 77 mm[Hg] [facility] Heart rate 2022-07-04 19:32:00 75 /min [facility] Respiratory rate 2022-07-04 19:32:00 18 /min [facility] Body height 2022-07-04 19:32:00 157.5 cm [facility] Body weight 2022-07-04 19:32:00 76.658 kg [facility] BMI 2022-07-04 19:32:00 30.91 kg/m2 [facility] Systolic blood pressure 2022-06-27 14:39:00 115 mm[Hg] [facility] Diastolic blood pressure 2022-06-27 14:39:00 78 mm[Hg] [facility] Heart rate 2022-06-27 14:39:00 79 /min [facility] Body temperature 2022-06-27 14:39:00 37 Kierra [facility] Respiratory rate 2022-06-27 14:39:00 18 /min [facility] Body height 2022-06-27 14:39:00 158.8 cm [facility] Body weight 2022-06-27 14:39:00 76.658 kg [facility] BMI 2022-06-27 14:39:00 30.42 kg/m2 [facility] Oxygen saturation in Arterial blood by Pulse oximetry 2022-06-27 14:39:00 98 /min [facility] Systolic blood pressure 2022-06-11 15:42:00 130 mm[Hg] [facility] Diastolic blood pressure 2022-06-11 15:42:00 76 mm[Hg] [facility] Heart rate 2022-06-11 15:42:00 76 /min [facility] Body temperature 2022-06-11 15:42:00 36.56 Kierra [facility] Respiratory rate 2022-06-11 15:42:00 16 /min [facility] Body height 2022-06-11 15:42:00 157.5 cm [facility] Body weight 2022-06-11 15:42:00 76.885 kg [facility] BMI 2022-06-11 15:42:00 31.00 kg/m2 [facility] Systolic blood pressure 2020-12-26 20:16:00 126 mm[Hg] [facility] Diastolic blood pressure 2020-12-26 20:16:00 81 mm[Hg] [facility] Heart rate 2020-12-26 20:16:00 75 /min [facility] Body temperature 2020-12-26 20:16:00 36.39 Kierra [facility] Systolic blood pressure 2019-08-11 13:52:00 132 mm[Hg] [facility] Diastolic blood pressure 2019-08-11 13:52:00 78 mm[Hg] [facility] Heart rate 2019-08-11 13:52:00 76 /min [facility] 2019-08-11 13:52:00 35.5 Kierra [facility] Respiratory rate 2019-08-11 13:52:00 17 /min [facility] Body height 2019-08-11 13:52:00 157.5 cm [facility] Body weight 2019-08-11 13:52:00 63.504 kg [facility] BMI 2019-08-11 13:52:00 25.61 kg/m2 [facility] Oxygen saturation in Arterial blood by Pulse oximetry 2019-08-11 13:52:00 98 /min [facility] Systolic blood pressure 2019-08-11 13:52:00 132 mm[Hg] [facility] Diastolic blood pressure 2019-08-11 13:52:00 78 mm[Hg] [facility] Heart rate 2019-08-11 13:52:00 76 /min [facility] Body temperature 2019-08-11 13:52:00 35.5 Kierra [facility] Respiratory rate 2019-08-11 13:52:00 17 /min [facility] Body height 2019-08-11 13:52:00 157.5 cm [facility] Body weight 2019-08-11 13:52:00 63.504 kg [facility] BMI 2019-08-11 13:52:00 25.61 kg/m2 [facility] Oxygen saturation in Arterial blood by Pulse oximetry 2019-08-11 13:52:00 98 /min [facility] Body temperature 2019-07-24 18:29:00 37.67 Kierra [facility] Respiratory rate 2019-07-24 18:29:00 16 /min [facility] Body height 2019-07-24 18:29:00 157.5 cm [facility] Body weight 2019-07-24 18:29:00 63.504 kg [facility] BMI 2019-07-24 18:29:00 25.61 kg/m2 [facility] Oxygen saturation in Arterial blood by Pulse oximetry 2019-07-24 18:29:00 99 /min [facility] Systolic blood pressure 2019-07-24 18:29:00 115 mm[Hg] [facility] Diastolic blood pressure 2019-07-24 18:29:00 73 mm[Hg] [facility] Heart rate 2019-07-24 18:29:00 78 /min [facility] Procedures Procedure Date / Time Performed Performing Clinician Source CREATINE KINASE 2024-02-04 16:47:00 Destiny Ashton [facility] BASIC METABOLIC PANEL (NA, K, CL, CO2, GLUCOSE, BUN, CREATININE, CA) 2024-02-04 16:47:00 Destiny Ashton [facility] CONSENT/REFUSAL FOR DIAGNOSIS AND TREATMENT 2023-07-01 22:17:39 Doctor Unassigned, [place] [facility] POCT SARS-COV-2 ANTIGEN (BINAX NOW) 2023-04-16 16:50:00 Lety Escobar [facility] [place] POCT MOLECULAR FLU 2023-04-16 16:38:00 Unknown, Attend [facility] POCT MOLECULAR STREP 2023-04-16 16:35:00 Unknown, Atte mihai [facility] [place] TDAP VACCINE, >11 YRS, IM 2022-09-09 21:38:43 Enid Cuenca [facility] [place] VACCINATIONS - CONSENTS, ELIGIBILITY, HISTORY 2022-09-09 05:01:00 Doctor Unassigned, [place] [facility] [place] CYTO OTHER 2022-08-14 18:10:00 Adum, Rose Espino [facility] INTUBATION 2022-08-14 15:20:00 Pat Rodriguez [facility] LAPAROSCOPIC SALPINGO-OOPHORECTOMY 2022-08-14 14:52:00 Adum, Rose Espino [facility] HB ABO GROUPING 2022-08-14 12:00:00 Adum, Rose Espino [facility] HB ABO GROUPING 2022-08-14 12:00:00 Adum, Rose Kenzie [facility] POCT TEST 2022-08-14 11:50:00 Henrique Chowdhury [facility] POCT TEST 2022-08-14 11:50:00 Henrique Chowdhury [facility] ASSIGNMENT OF BENEFITS 2022-08-12 13:41:54 Docto r Unassigned, [place] [facility] [place] DSU PRE-OP 2022-07-29 05:01:00 Doctor Unass igned, [place] [facility] [place] DSU PRE-OP 2022-07-29 05:01:00 Doctor Unass igned, [place] [facility] [place] CBC WITH DIFF 2022-06-27 15:33:00 Enid Cuenca [facility] US PELVIS LIMITED 2022-06-25 14:39:58 Alee Montesinos [facility] [place] CONSENT TO CONTACT FOR VOLUNTARY RESEARCH 2022-06-11 15:20:50 Doctor Unassigned, [place] [facility] [place] POCT URINALYSIS W/O SPECIFIC GRAVITY 2022-06-11 00:00:00 Adum, Rose Kenzie [facility] [place] MRI BRAIN W WO CONTRAST 2021-01-16 18:49:20 [facility] MRI BRAIN W WO CONTRAST 2021-01-16 18:49:20 [facility] XR CHEST 1 VW 2019-07-24 19:26:07 [facility] POCT TEST 2019-07-24 19:08:00 Jarod Lopes [facility] [place] EKG-12 LEAD 2019-07-24 19:05:03 [facility] NOTICE OF PRIVACY PRACTICES 2019-07-24 18:15:52 Doctor Unassigned, [place] [facility] [place] Encounters Start Date/Time End Date/Time Encounter Type Admission Type Attending Clinicians Care Facility Care Department Encounter ID Source 2022-09-15 11:52:54 Outpatient [facility] [id number] [facility] 2021-05-29 11:20:48 Outpatient Odell, [facility] [id number] [facility] 2021-05-29 11:20:31 Outpatient Odell, [facility] [id number] [facility] 2021-05-29 11:19:22 Outpatient Odell, [facility] [id number] [facility] 2021-05-29 11:15:40 Outpatient Odell, [facility] [id number] [facility] 2024-02-04 00:00:00 2024-02-09 10:53:13 Telephone Destiny Ashton [facility] 1.2.840.114 350.1.13.10 4.2.7.2.686 [id number] [facility] 2024-02-08 00:00:00 2024-02-09 08:39:47 Patient Secure Msg Destiny Ashton [facility] 1.2.840.114 350.1.13.10 4.2.7.2.686 [id number] [facility] 2024-02-04 00:00:00 2024-02-08 16:17:24 Patient Secure Msg [facility] 1.2.840.114 350.1.13.10 4.2.7.2.686 [id number] [facility] 2024-02-04 11:45:00 2024-02-04 12:00:00 Developmental Behavioral Physician Visit Lab, Ang - Db Destiny Ashton, Ang - Db [facility] 1.2840.114 350.1.13.10 4.2.7.2.686 [id number] [facility] 2024-02-04 11:00:00 2024-02-04 11:38:13 Outpatient R DESTINY ASHTON [facility] [id number] [facility] 2024-02-04 11:00:00 2024-02-04 11:38:13 Office Visit [facility] 1.2840.114 350.1.13.10 4.2.7.2.686 [id number] [facility] 2024-02-01 00:00:00 2024-02-02 14:16:57 Telephone [facility] 1.2840.114 350.1.13.10 4.2.7.2.686 [id number] [facility] 2024-01-27 00:00:00 2024-01-27 13:49:16 Telephone Enid Cuenca [facility] 1.2840.114 350.1.13.10 4.2.7.2.686 [id number] [facility] 2024-01-27 00:00:00 2024-01-27 13:19:25 Telephone [facility] 1.2840.114 350.1.13.10 4.2.7.2.686 [id number] [facility] 2024-01-26 12:45:00 2024-01-26 13:00:00 Developmental Behavioral Physician Visit Lab, Ang - Db Harlan Forbes, Ang - Anand [facility] 1.2840.114 350.1.13.10 4.2.7.2.686 [id number] [facility] 2024-01-26 11:30:00 2024-01-26 12:04:29 Outpatient R HARLAN FORBES [facility] [id number] [facility] 2024-01-26 11:30:00 2024-01-26 12:04:29 Office Visit Harlan Forbes [facility] 1.840.114 350.1.13.10 4.2.7.2.686 [id number] [facility] 2024-01-07 09:53:00 2024-01-07 09:53:00 Outpatient CLYDE PEREA [facility] [id number] [facility] 2023-09-15 00:00:00 2023-10-17 18:19:26 Patient Secure Msg Doctor Unassigned, [place] [facility] 1.840.114 350.1.13.10 4.2.7.2.686 [id number] [facility] 2023-09-14 13:30:00 2023-09-14 13:47:03 Outpatient R IRWINYAJAIRA Cortes [facility] [id number] [facility] 2023-09-14 13:30:00 2023-09-14 13:47:03 Office Visit Lloyd Yajaira [facility] K[facility]KE?[facility] 1.840.114 350.1.13.10 4.2.7.2.686 [id number] [facility] 2023-07-03 00:00:00 2023-07-03 00:00:00 Patient Secure Msg Doctor Unassigned, [place] [facility] K[facility] 1.840.114 350.1.13.10 4.2.7.2.686 [id number] [facility] 2023-07-02 09:00:00 2023-07-02 10:19:52 Outpatient R YAJAIRA DESAI [facility] [id number] [facility] 2023-07-02 09:00:00 2023-07-02 09:15:00 Developmental Behavioral Physician Visit Lab, Myles Cueto, Attending [facility] 1..840.114 350.1.13.10 4.2.7.2.686 [id number] [facility] 2023-07-01 16:30:00 2023-07-01 16:51:35 Outpatient R YAJAIRA DESAI [facility] [id number] [facility] 2023-07-01 16:30:00 2023-07-01 16:51:35 Office Visit Yajaira Desai [facility] 1..840.114 350.1.13.10 4.2.7.2.686 [id number] [facility] 2023-07-01 00:00:00 2023-07-01 00:00:00 Orders Only Doctor Unassigned, [place] [facility] 1.840.114 350.1.13.10 4.2.7.2.686 [id number] [facility] 2023-04-16 10:40:00 2023-04-16 10:58:54 Outpatient R LETY ESCOBAR [facility] [id number] [facility] 2023-04-16 10:40:00 2023-04-16 10:58:54 Urgent Care Lety Escobar Unknown, Attending [facility] 1..840.114 350.1.13.10 4.2.7.2.686 [id number] [facility] 2023-03-09 11:30:00 2023-03-09 11:30:00 Outpatient HERBERT BAILEY [facility] [id number] [facility] 2022-12-09 16:00:00 2022-12-09 17:04:56 Outpatient R ENID CUENCA [facility] [id number] [facility] 2022-12-09 16:00:00 2022-12-09 17:04:56 Office Visit Matt [facility]KE?[facility] 1.2840.114 350.1.13.10 4.2.7.2.686 [id number] [facility] 2022-09-25 00:00:00 2022-09-25 00:00:00 Rose Chisholm [facility] 1.840.114 350.1.13.10 4.2.7.2.686 [id number] [facility] 2022-09-09 16:45:00 2022-09-09 17:00:00 Developmental Behavioral Physician Visit Lab, Myles - Anand [facility] 1.840.114 350.1.13.10 4.2.7.2.686 [id number] [facility] 2022-09-09 16:00:00 2022-09-09 16:52:42 Office Visit Matt [facility] 1.2840.114 350.1.13.10 4.2.7.2.686 [id number] [facility] 2022-09-09 08:30:00 2022-09-09 08:47:06 Outpatient R ROSE JOHNSON [facility] [id number] [facility] 2022-09-09 08:30:00 2022-09-09 08:45:00 Developmental Behavioral Physician Visit Lab, Ang - Db Unknown, Attending [facility] 1.840.114 350.1.13.10 4.2.7.2.686 [id number] [facility] 2022-09-09 00:00:00 2022-09-09 00:00:00 Orders Only Doctor Unassigned, [place] [facility] 1..114 350.1.13.10 4.2.7.2.686 [id number] [facility] 2022-08-28 15:30:00 2022-08-28 16:24:09 Outpatient R ROSE JOHNSON [facility] [id number] [facility] 2022-08-28 15:30:00 2022-08-28 16:24:09 Office Visit Rose Johnson [facility] 1.84.114 350.1.13.10 4.2.7.2.686 [id number] [facility] 2022-08-27 14:00:00 2022-08-27 14:00:00 Outpatient R ALEX ROSE [facility] [id number] [facility] 2022-08-14 06:48:00 2022-08-14 16:35:00 Outpatient R ALEX [facility] 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13.10 4.2.7.2.686 [id number] [facility] 2022-08-12 08:30:00 2022-08-12 08:45:00 Developmental Behavioral Physician Visit Pob, Adc Lab Main Adbecky Rose [facility] PROFESSIO NAL BUILDING 1.840.114 350.1.13.10 4.2.7.2.686 [id number] [facility] 2022-08-12 08:30:00 2022-08-12 08:30:00 Outpatient R ROSE JOHNSON [facility] [id number] [facility] 2022-08-12 00:00:00 2022-08-12 00:00:00 Orders Only Doctor Unassigned, [place] [facility] 1.840.114 350.1.13.10 4.2.7.2.686 [id number] [facility] 2022-08-07 09:20:00 2022-08-07 09:54:17 Outpatient R [facility] [id number] [facility] 2022-08-07 09:20:00 2022-08-07 09:54:17 Office Visit Enid Cuenca [facility] 1..840.114 350.1.13.10 4.2.7.2.686 [id number] [facility] 2022-07-29 09:00:00 2022-07-29 10:30:28 Outpatient R ROSE JOHNSON [facility] [id number] [facility] 2022-07-29 09:00:00 2022-07-29 10:30:28 Office Visit Rose Johnson [email or web address] 1.2.840.114 350.1.13.10 4.2.7.2.686 [id number] [facility] 2022-07-25 00:00:00 2022-07-25 00:00:00 Telephone Adum, Rose Espino [facility] 1.2.840.114 350.1.13.10 4.2.7.2.686 [id number] [facility] 2022-07-25 00:00:00 2022-07-25 00:00:00 Patient Secure Msg Campbellrony [facility] 1.2.840.114 350.1.13.10 4.2.7.2.686 [id number] [facility] 2022-07-24 00:00:00 2022-07-24 00:00:00 Telephone Adum, Rose Espino [facility] 1.2.840.114 350.1.13.10 4.2.7.2.686 [id number] [facility] 2022-07-24 00:00:00 2022-07-24 00:00:[address] [facility] 1.2.840.114 350.1.13.10 4.2.7.2.686 [id number] [facility] 2022-07-22 14:34:55 2022-07-22 23:59:00 Outpatient R LEX MONTESINOS CHERYAL [facility] [id number] [facility] 2022-07-22 14:34:55 2022-07-22 23:59:00 Hospital Encounter Lex Montesinos [facility] 1.2.840.114 350.1.13.10 4.2.7.2.686 [id number] [facility] 2022-07-21 00:00:00 2022-07-21 00:00:00 Patient Secure Msg Doctor Unassigned, [place] [facility] 1.840.114 350.1.13.10 4.2.7.2.686 [id number] [facility] 2022-07-09 08:15:00 2022-07-09 08:30:00 Developmental Behavioral Physician Visit Lab, Myles Johnson [facility] 1.840.114 350.1.13.10 4.2.7.2.686 [id number] [facility] 2022-07-09 08:15:00 2022-07-09 08:15:00 Outpatient Gayla JOHNSON [facility] [id number] [facility] 2022-07-08 08:00:00 2022-07-08 08:30:32 Outpatient R ALEX [facility] [id number] [facility] 2022-07-08 08:00:00 2022-07-08 08:30:32 Office Visit Lex Montesinos [facility] 1.284.114 350.1.13.10 4.2.7.2.686 [id number] [facility] 2022-07-05 00:00:00 2022-07-05 00:00:[address] [facility] 1.284.114 350.1.13.10 4.2.7.2.686 [id number] [facility] 2022-07-04 13:30:00 2022-07-04 14:06:28 Outpatient R LEX MONTESINOS CHERYAL [facility] [id number] [facility] 2022-07-04 13:30:00 2022-07-04 14:06:28 Office Visit Tritschler, Cheryal [facility] [[email or web address] 1.2.840.114 350.1.13.10 4.2.7.2.686 [id number] [facility] 2022-07-04 00:00:00 2022-07-04 00:00:00 Telephone [facility] 1.2.840.114 350.1.13.10 4.2.7.2.686 [id number] [facility] 2022-06-27 09:30:00 2022-06-27 09:31:26 Developmental Behavioral Physician Visit Lab, Myles Michel [facility] 1.2840.114 350.1.13.10 4.2.7.2.686 [id number] [facility] 2022-06-27 08:40:00 2022-06-27 09:25:33 Office Visit Matt [facility] 1.2.840.114 350.1.13.10 4.2.7.2.686 [id number] [facility] 2022-06-27 08:40:00 2022-06-27 09:25:33 Outpatient R MATT [facility] [id number] [facility] 2022-06-25 07:52:06 2022-06-25 23:59:00 Outpatient R LEX MONTESINOS [facility] [id number] [facility] 2022-06-25 07:52:06 2022-06-25 23:59:00 Hospital Encounter Lex Montesinos [facility] 1.2.840.114 350.1.13.10 4.2.7.2.686 [id number] [facility] 2022-06-13 00:00:00 2022-06-13 00:00:[address] [facility] 1.2840.114 350.1.13.10 4.2.7.2.686 [id number] [facility] 2022-06-11 10:15:00 2022-06-11 10:22:05 Outpatient ROSE THOMAS [facility] [id number] [facility] 2022-06-11 10:15:00 2022-06-11 10:22:05 Office Visit Lex Montesinos Vivian L [facility] 1.2.840.114 350.1.13.10 4.2.7.2.686 [id number] [facility] 2022-06-11 00:00:00 2022-06-11 00:00:00 Orders Only Doctor Unassigned, [place] [facility] 1.2.840.114 350.1.13.10 4.2.7.2.686 [id number] [facility] 2022-06-04 09:26:55 2022-06-04 09:26:55 Outpatient [facility] [id number] Radames [place] 2022-05-15 10:28:47 2022-05-15 10:28:47 Outpatient [facility] [id number] Radames Rojas Shamir 2021-01-16 00:00:00 2021-01-16 00:00:00 EXT [facility] OP Herbert Bailey EXT [facility] LOCATION 1..840.114 350.1.13.58 9.2.7.2.686 [id number] [facility] 2021-01-16 00:00:00 2021-01-16 00:00:00 EXT [facility] OP Herbert Bailey EXT [facility] LOCATION 1.2840.114 350.1.13.58 9.2.7.2.686 [id number] [facility] 2020-12-26 14:41:32 2020-12-26 15:55:50 Office Visit Herbert Bailey 1.2840.114 350.1.13.58 9.2.7.2.686 [id number] [facility] 2019-09-12 08:02:00 2019-09-12 08:02:00 Outpatient Joseospor [facility] [place] [facility] Medicine [id number] [facility] 2019-08-11 08:26:17 2019-08-11 09:35:48 Urgent Care Pob1, Acute Care Clinic Nadya Heart [facility] Office [facility] 1.20.114 350.1.13.10 4.2.7.2.686 [id number] [facility] 2019-08-11 08:26:17 2019-08-11 09:35:48 Urgent Care Pob1, Acute Care Clinic [facility] 1.20.114 350.1.13.10 4.2.7.2.686 [id number] 2019-08-11 08:20:00 2019-08-11 08:20:00 Outpatient NADYA DAVILA [facility] [id number] [facility] 2019-08-11 00:00:00 2019-08-11 00:00:00 Telephone [facility] 1.20.114 350.1.13.10 4.2.7.2.686 [id number] [facility] 2019-08-11 00:00:00 2019-08-11 00:00:00 Telephone [facility] 1.2840.114 350.1.13.10 4.2.7.2.686 [id number] 2019-07-24 13:34:03 2019-07-24 14:48:00 Emergency Jarod Lopes [facility] 1.2.840.114 350.1.13.10 4.2.7.2.686 [id number] [facility] 2019-07-24 13:34:03 2019-07-24 14:48:00 Emergency X JAROD LOPES [facility] ERT [id number] [facility] Results Test Description Test Time Test Comments Results Result Co mments Source [facility] Metabolic Panel (NA, K, CL, CO2, GLUCOSE, BUN, CREATININE, CA)2024-02-04 20:39:04* Test Item Value Reference Range Interpretation Comme [facility] NA (test code = 6768945147) 137 mmol/L 135-145 K (test code = 4659337081) 4.1 mmol/L 3.5-5.0 CL (test code = 7747074956) 102 mmol/L 98-108 CO2 TOTAL (test code = 5817592024) 31 mmol/L 23-31 AGAP (test code = 4655252347) 4 2-16 BUN (test code = 5877123719) 12 mg/dL 7-23 GLUCOSE (test code = 6090121618) 88 mg/dL 70-110 CREATININE (test code = 2160-0) 0.66 mg/dL 0.50-1.04 CALCIUM (test code = 7619925822) 9.2 mg/dL 8.6-10.6 eGFR (test code = 91629-9) 116.8 mL/min/1.73m2 CKD-EPI eGFR (20 21). Assuming creatinine has been stable day-to-day for at least three months, the eGFR indicates Category G1 (>= 90 mL/min/1.73 m2) [facility] SARS-COV-2 ANTIGEN (BINAX NOW)2023-04-16 16:51:00* Test Item Value Reference Range Interpretation Comme [facility] POCT SARS-COV-2 ANTIGEN (claudia t code = 57425-0) Not Detected Not Detected On board controls acceptable with C Line (test code = 3574) Yes Lab Interpretation (test cod e = 96816-4) Normal [facility] Molecular [id number] 16:49:51* Test Item Value Reference Range Interpretation Comme nts POCT Molecular FluA (test co de = 53132-4) Negative Negative POCT Molecular FluB (test co de = 40558-4) Negative Negative Lab Interpretation (test cod e = 68906-5) [facility] [id number] 16:43:11* Test Item Value Reference Range Interpretation Comme nts POCT Molecular Strep (test c ode = 86786-5) Negative Negative Lab Interpretation (test cod e = 65850-3) Normal [facility] [id number] 22:00:14* Test Item Value Reference Range Interpretation Comme nts Case Report (test code = 5872524205) Non-Gynecologic Cytology ?Case: [id number] ?Authorizing Provider: ?Rose Johnson MD ? Collected: ? 08/14/2022 1310 ?Ordering Location: ? ? [facility] ? ? ?Received: ?08/14/2022 1803 ? [place] ? Pathologist: ? Elvira Dee MD ? Specimen: ? ?PERITONEAL WASHINGS ? Final Diagnosis (test code = 7821961352) [id number] GFuZzEwMzNcZnRuYmpcdW MxIHtccnRmMVxlcGljMTA jEDFbh2ijf9gyxMLvFGLb j8upp5NgoHQgqIHgKIjgi KZfhdLmrx13vQI0eL70WV 7yGVHrZbG9ASDupiW7Iip 7HNHeORWiiJQfD538y0af o7ednnZldKE0cEjvETYlh pyqGeO9EOelRAInjicvWF e2HCpaEBDmuVB3QYXzpLI fY4BhFZVuGB9bwxy0AOG6 HYamTIJhOuO2WOPcvDBjN ACmgXzjFNsak696CSI0Iy CeNDTaorKikc96fNGoqFq jDQPwzTyxkY2vGzjentTn CNZpyvb9gVHopOkkBYQtK G1wIYZQHtySC56KDJ00DV rUX6gJKxe1RQAtsgSaNZM xEDBqEU2RZ9WAXANLOPVN UdLRREgRZ35OHcXnK3ZOI JDuHERgYJcWEOFkF17HPG HESTmkgWZmYEZjan26HWU 8QjBeg9Y0ZMOkPhCaRZCe UY0hdCyrLSMsLV0bLYZvL 2flzN5udbc0OqArBCXqFy S3JCAetrS0Blc3FGNrAXw oa7ctb4LrQ9XtjSJkeVz3 r4rcDGTkHkA9lFHgGVbvD 1bekhRyiTNjIPTiYLu6nW cmAxHaBIBsp3jasmOeIgB oYXJzZXQwIENhbGlicmk7 eT10EQVrrZ6wvNDpNXpuv tNkSvW8WAowWVPyGoM0GC KeeKMvWKEjJ8oqOLQbVVx sKVFnBRxbwCKjOXO6tXcz o3S2tHMjnAVhgZtgFuHsE nWpBJLEj9BpKKi5kXcqQ4 WjYLPaPgX0lMDaEWBaIWd lEIJgYNLvwkZ8iG66CHlf nnH7wJEkd7Ujk06zk174u J8rmGRhOXY2FFXzXAYwlU XoPYMtVHM4CBYeuLIgZ9k cLNCpSC7aphlyYBaqHDcl KRQfxEB4WAWadIFaF6QvK TWcYMrcIPNxjpz1EtGqMo 7bkQYkqRymMXwae0gfs7q rrZCeCvl8RVBmXrDpNckw VOtgq2Odx7msDMYqnz1oI EY4wKIeiBjfb5D9iGNgIU IvbJAlylQvPZUhGqR1TSv vSJ4fsq10SVMrLMF3ri4p bGNccGdicmRyaGVhZFxwZ 0IeYCCpk702TBAwC0EjHN Smu3N8mxKbZjAtZZPktJX 6qsK3BDCcXYx1fYVvksU1 jdEwwGAjU0mwiU0oMKPeW N3ugljcx6pqTMlfMBygBC ZhkDH0irN9WODbdMNsU3O vlJ6pLEBwLMnoNVCdlih3 FfSiPf8lmAXzmHbnKQgeM mtwYWdlXHBnbmNvbnRccG duZGVjXHBsYWluXHBsYWl uXGYwXGZzMjRccWxccGxh mX2bXeHoPfHqGSzzRF7zH EDbG3nfqPVxXKLvXOIpP3 sjYxEbaN4bqXrwZQjqRrG cZnMyMFxwYXIgSSBoYXZl XAZsiaZgcwNanBiyipY7z RJ1SAIuFZjqDGCwMOIobI Wbvz1bxVfeFFGpUO6sLIP ncmVlIHdpdGggYWxsIHN0 YXRlbWVudHMgbWFkZSBie SByZXNpZGVudHMsIGZlbG thg5Kzr8MzfQG0aC8uv8v be2CiVGQcaBI8SQ19vhK2 yF6sEKGmQL9kQUPlCN9li ISmeYKuBEJas00aqZubxs ByZXBvcnQuXHBsYWluXGY yXGZzMjhcbGFuZzEwMzNc aGljaFxmMlxkYmNoXGYyX PfwH2apLwStUnPqSDlyGY J9fQ== Final Diagnosis Comment (test code = 5406051588) u7wveRPcHAPhfXNuOXWfF ihpwdDbKYFowJJnX5Fyhz ckWUlfDJ8yBK3thAiveSU dhTMtBXTfWsFbj0hoa281 vWSvz0xrYIRIragcjHm8d ShdH48oe2C9BvesS79afH ScELX2YWTqTCZaoHCuTMI wBXY4LOHbxTHwD6rmWTJe IA3bhtayGSurVXreFFDzj AH1PXFwvADyO8PsMCAzAC ubDZAmggm9WqIwPq4koSI yeTcyMFxwYXJkXHBsYWlu FFPfRbIfG57qGQCyJUInk 9twX9MpzCElER5zLUTjlq lnbiBtZXNvdGhlbGlhbCB bYTapzw6oIa1btVPhlKvk DN43OENnmCujRDBvEKSdM GVudGlmaWVkLlxwYXJ9 Clinical Information (test code = 0524979659) Right ovarian cyst Gross Description (test code = 6888039223) p3pdyWChDMMehLQaHSRiN umjedUwVVBzhDCnH7Fijh ztCZgnXG2oFI6olPxdwGX enBAvAWRgVdGan9sps238 yEVit0vhWOFRjgyodNy0z KkrA57hg6J6SgrlT1osXU QwXGdyZWVuMFxibHVlMDt 9XHBhcGVydzEyMjQwXHBh lLZepZW2NACkGZ4bakimL OvlODpxSQUriqY1PWRehM CcA5ImJORvPE2tyzdgJFK 3KUnlPGNaDEU6JvNvHIFi w5Wurpf5FtF5FOweZNTiA 9SiS4QdJZxjLAP3FNEcGX XqEUSgNV3LDpQmAPO8WrI yMzAiIFJFUSAzNzEzODkz EDKMHNJpLRYlFDD3HCHwP iIgTFJSIDgwMDAwMDAwMD EgXFxuaCBcXHQgMSBcXGZ lUBqfwgU0l1dvYWSdlSEd ZTW6UUsdlAFcLTIuRIIzI LqeJcAVYrCiHuM9RyzfSa UgHsH0YDf0LZSYIlCgBcP kOzUpYDA0LTzvUZm1WGq4 XWqXWwJhGdn6GdD1HpI2S JY6OTKqMZmnlYLxLBjzu0 BiOhRfCEYmUFdodwZ2GGK egqNihNtyoL9eTbBbSEdq YXJccGFyZFxzYjMwXGVwa ZWXa2LwKRvprDLbmatwzd IwXHBhclxwYXJkXHdpZGN 0dXUwbgIYSD3mXRKJPvtN U83RJL60ZCtKD5eKDoomv GFyXGNmMSBSZWNlaXZlZC SoyqDnuFAte4wqYHTmKBT uH5VfgdFcKiFfF7WnhpGr ZiBjbGVhciBmbHVpZCByZ WNlaXZlZCBmcmVzaFxwYX Cyp6RcICeyeZabCQAgJyV wwg33dWBkqRxqFNDmIVHz cGFyZWQgMiBzbGlkZXMgK RU1pS3ucBpuRFEfNZTipk Y5fT6lblywTGMUg73slq9 6b5b4SBLjVAXwHYOysZPl aWNvbGFvdSBzdGFpbmVkK CitEyAlCWmrOUWvC9YyC8 CqvpE5e8hnzWxpt8SeqOK fDU3utFHjsN== Disclaimer (test code = [id number]) u8adiGYqYNWfx7kkFSXow GFuZzEwMzNcZnRuYmpcdW DgWVgoaiNhCMwwc0KtO1U yMjAwMFxhbnNpXGRlZmxh lioqWNWeGMV2qcRuRYEaH XzpSOBdSNdkNs1bjPIusI jdShVkNOMmw0kbcmPHLRp lUyBbP320IGTeBUcyw2no y8KnAVToeFEgr2W7DYVLi ivcuRq3lCdaM24sq9P9Qg oaG4plNFYiGDRzN1OzRC8 sWJVsLry9HRK6WQV0FQEi XHHiY1UmUX1ePXAzuSJcF Oh1m6kimSdzJGVgUYI6d2 vsHIbwowUaYS5gps0bcKg 3n8mhtnLyWHUyUOMnaWBN AXQcR8OsjWsqTo4cgKc7n FcjMgorOBX3Wgl5EP2vnu 16npe0ePazKZBfimhtVjG 6JKxnDRXfrxzxPJs2TSwt ZIGueNH6WLUenRWoF7WpB BCjAK8slmf9GGM6NKvfJW XiXkI1SOEtnRMlJELpiHl wXOlzv267GWL8ReSsJY3a B3Ogh6E4mB6oeAWtZJCzv BSdAhKcHYYjhw3iaXUqVM eun9WrOBM8leE1mCKplAX zKIYzWE97Xhnln4HnPpij c7SxF57lbHB8KGulr1lgT Z8eXfB1slUfNNfzu9cagL 1eMvX2BCzlFA5xQA3dBLB fqS0ymnnsLRRlIpGxwfus PHIrcWkdcbFpLt9dqTodC DV4EHwiK5nydD9tNsU8RU niB2craI5lREb9XPajbKS 6EGFhzG0qZV7wkvxoc7un FWtvYTooPRZexiE8twR4V QPabDTzM8NejR9wAMOoOF 3nzjtzl6vsDES0VRurDEW bRNZ6JoNlNHBrl7Tofbz3 JyEwu6TxnXKoTYlwS81dw 882ARUkiqZvX9keeEBvbr fowYLxksupQHrxpfE2WVG mecNcb7SqBMDfPVD5AGkk THoqiJJwHUMpnJhiz1cgC 3RscGFyXHBsYWluXGYxXG ZzMjBcbGFuZzEwMzNcaGl jaFxmMVxkYmNoXGYxXGxv J4ixZoTzQ2KvHSOeDjLcy AMtB4ooEEnjdoGsZTWdmj VanEA1GWwxK7z9ROYyfjW ujVi5rgCnCmGtUCRzHKV9 ODaddGZpZIHuu8Ocntsou TQfQz6ipJZaGSKrtY7wRC QrPXCxPEncBH3nyBk4HCV FkLUzoAWqMnAKSJTpZT35 jcOrBZPIsxlfj2X6GEfvU ZNlm1CfhDLuF2rfm7QtIX Ule23eXF7gv0R4x5dcAZX 0BN1at9SsVFAkgSIvrCHc PUOoo0Ikxnyit1XsDGYlc pRnq3VoXNNskcEsuCRxDD KrmlZsuh2ssoKmGEQgZNR tY9YhenbbtTdreiEbAXEf zd0djuLiCWN6FQUESELoR STfu3ZqgN5sdHQQLRB5bA Nurt3fpeCTcAHcITElzz4 4BNVuJJ2cS8nwTMDlJLEm ieRrsMGfd8GbODNajTB4m VWtVE2COtUNn36cLYVhPQ KXobXeWHWiiGtckGF5anR 8vF5dRGrDCCBhFfm+IFRo HTPTNINcSU0coqRus3Xjt aBscJecMDSkfYDud1HyjH Lia4LsjYwsm4LvnILucIV pMZ1uRQQgdsmqHQTlMMYO ZzURSGDijnM5k4KtMJLiB ZXaWNJ4qZdvjte1BSHpzY 2hSIGzR2djvqxuAMtwYSJ ak9XjcQ5wmOKAeIJvf6Mq dDOpuBNKpGCgXV3efgZuC HcPBWzUESZ7adPxAGCmw6 YjDMkcL3bcN89shJppgOx 1fAP5JNC6vG3oLxx+IFxw YXJccGFyIEFwcHJvcHJpY TMpfSiufjGyA2ZddfTdaH 0zfQUrboNwHF5jOE7eW3Q 2yCQmCBRwnaHee9igYGqo dmUgYmVlbiByZXZpZXdlZ XLbz3OlGCfiYMU9RQmtef BpbmNsdWRpbmcgSCZFLCB IxKBavGMdXBC8KToqmiDw gqClPA3zgJ4ciZdzvG4sr TBkcSM7xcecGZBmXXZzvU glKWNjKY3dfTMzQSJbmmM TdMzetPAvsB8zN3GyUUBg NGQwlp3qZLHcdX3yXPycr 2VydmljZXMgYXJlIHBlcm Otdz8lCUGhzWYUZM4SVJu onIPmy9ZtuqFzX7kFPDO9 NUQwNjYwMjgxKSBleGNlc VAjJZBepe42NVRrsY2ntL hfRSPgkB9xfB0mbVffoV9 cMlWaAoSdZGnfYM7hEOMg W8jqeSBxMLAkNCXkG1qwT kVuwW9beArwYPvnPgCpTi AvGRyiJYT1iI== Embedded Images (test code = 4104978618) [facility] This is a pre-surgical type and screen. ONCE [id number] 12:22:00* Test Item Value Reference Range Interpretation Comme nts ABO & RH (test code = 20) O Positive IAT (test code = 1185) Negative [facility] This is a pre-surgical type and screen. ONCE [id number] 12:22:00* Test Item Value Reference Range Interpretation Comme nts ABO & RH (test code = 20) O Positive IAT (test code = 1185) Negative [facility] [id number] 12:02:00* Test Item Value Reference Range Interpretation Comme nts POCT PREG (test code = 1605) Negative On board controls acceptable with C Line (test code = 3574) Yes POCT PREG LOT # (test code = 3575) POCT PREG TEST DATE ( test code = 3576) Lab Interpretation (test cod e = 23140-4) Normal [facility] [id number] 12:02:00* Test Item Value Reference Range Interpretation Comme nts POCT PREG (test code = 1605) Negative On board controls acceptable with C Line (test code = 3574) Yes POCT PREG LOT # (test code = 3575) POCT PREG TEST DATE ( test code = 3576) Lab Interpretation (test cod e = 22370-5) Normal [facility]aleCB WITH [id number] 20:38:19* Test Item Value Reference Range Interpretation [...] 32.5 g/dL 31.6-35.1 RDW-SD (test code = 65734-2) 39.5 fL 39.0-49.9 RDW-CV (test code = 788-0) 12.8 % 12.0-15.5 PLT (test code = 777-3) 222 See_Comment [Automated [employer] ge] The system which generated this result transmitted reference range: 166 - 358 10*3/?L. The reference range was not used to interpret this result as normal/abnormal. MPV (test code = 23493-6) 10.6 fL 9.5-12.9 NRBC/100 WBC (test code = 9133384080) 0.0 See_Comment [Automated [employer]azar[employer] ssage] The system which generated this result transmitted reference range: 0.0 - 10.0 /100 WBCs. The reference range was not used to interpret this result as normal/abnormal. NRBC x10^3 (test code = 1285093065) See_Comment [Automated [employer] ge] The system which generated this result transmitted reference range: 10*3/?L. The reference range was not used to interpret this result as normal/abnormal. GRAN MAT (NEUT) % (test code = 770-8) 49.5 % IMM GRAN % (test code = 7846510378) 0.20 % LYMPH % (test code = 736-9) 30.5 % MONO % (test code = 5905-5) 7.9 % EOS % (test code = 713-8) 11.1 % BASO % (test code = 706-2) 0.8 % GRAN MAT x10^3(ANC) (test code = 1554429715) 2.58 10*3/uL 1.88-7.09 IMM GRAN x10^3 (test code = 9244136040) 0.00-0.06 LYMPH x10^3 (test code = 731-0) 1.59 10*3/uL 1.32-3.29 MONO x10^3 (test code = 742-7) 0.41 10*3/uL 0.33-0.92 EOS x10^3 (test code = 711-2) 0.58 10*3/uL 0.03-0.39 H BASO x10^3 (test code = 704-7) 0.04 10*3/uL 0.01-0.07 Lab Interpretation (test code = 25027-1) Abnormal [facility] W/O SPECIFIC [id number] 15:45:00* Test Item Value Reference Range Interpretation [...] = 3257) negative Negative - Negati ve [facility]AL[facility] W/O SPECIFIC [id number] 15:45:00* Test Item Value Reference Range Interpretation [...] = 3257) negative Negative - Negati ve [facility]aleCONSENT TO CONTACT FOR VOLUNTARY RESEARCH 2022-06-11 15:20:50* Test Item Value Reference Range Interpretation Comme nts Consent To Contact For [employer] (test code = 4947) Yes [facility]aleXR CHEST 1 [id number] 19:44:08No acute cardiopulmonary abnormality. Preliminary Report Dictated [...] reviewed this study and agree with the abovereport.[facility] [id number] 19:12:00* Test Item Value Reference Range Interpretation Comme nts POCT PREG (test code = 1605) Negative On board controls acceptable with C Line (test code = 3574) Yes POCT PREG LOT # (test code = 3575) [id number] POCT PREG TEST DATE ( test code = 3576) 01/01/2021 Lab Interpretation (test cod e = 21586-2) Normal [facility] Notes Date/Time Note Provider Source 2024-02-09 10:52:37 Images from the original note were not included. Patient viewed result on NPC IIIhart. All normal. Normal CK and BMP including normal kidney function. Written by SOCO Bishop on 02/08/2024 9:19 AM CDT Patient Release Status: This result is viewable by the patient in NPC IIIhart. Last viewed in NPC IIIhart: 02/04/2024 4:06 PM By: SOCO Winslow 02/08/2024 9:19 AM CDT Normal CK and BMP including normal kidney function. Patient Communication Released Seen Back to Top Normal CK and BMP including normal kidney function. Written by SOCO Bishop on 02/08/2024 9:19 AM CDT Seen by patient Enid Donte on 02/08/2024 4:58 PM Janna Harris LVN [facility] 2024-02-08 10:08:55 Please refer to result note. 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 SOCO-PHYSICIAN SUPERVISOR [employer] MIDLEVEL PROVIDER [facility] 2024-02-05 09:35:26 Labs not resulted yet. Please review. Nancy Winter RN [facility] 2024-02-04 16:07:22 Pt request a call back with lab results. Pt reviewed results online and is confused. Please Advise. Merry Atkinson [facility] 2024-02-04 11:45:00 Images from the original note were not included. Venipuncture collection performed by clean technique on the right anticubitus. Total of 1 attempts were made. Slight pressure and a bandage/dressing were applied to the site(s). The patient experienced no complications. The following specimens were processed according to instructions and sent to [facility] laboratories per lab order on 02/04/2024 : LT BLUE SST 1 LT GREEN RED LAV PPT DK GREEN (LiHep) DK GREEN (SodH) SELLERS DK BLUE (K2) DK BLUE (S) ACD Blood Culture NIPT/NTD [facility] 2024-02-02 14:16:16 Contacted patient to inform her of provider recommendations, patient stated she needed to get in sooner so I assisted her with getting an appointment 03/06 with another provider in office [facility] 2024-02-02 13:27:24 Not before visit due to billing issues [facility] 2024-02-02 08:44:49 Please review and advise. [facility] 2024-02-01 15:13:28 Patient calling wants to see if she can have labs redone this week, even though her appointment is not until next week. Leonila Ramirez [facility] 2024-01-27 13:48:49 Spoke to patient and relayed lab results and recommendations per Harlan Forbes DNP. Patient voiced understanding with no questions or concerns at this time. Nancy Winter RN [facility] 2024-01-27 13:30:23 Enid Kent is a 38 year old female returning call for recent lab results.Please advise Jessica Gonzalez [facility] 2024-01-27 13:19:12 Addressed. [facility] 2024-01-27 10:24:29 Please review results and advise. Nancy Winter RN [facility] 2024-01-27 08:35:18 Pt said that the slab grinder and JAMIL Forbes said that her Rhabdomyolysis lab result was going to come in and if serious someone would be calling her. Pt is requesting her lab results. Charlotte Viveros [facility] 2024-01-26 12:45:00 Images from the original note were not included. Venipuncture collection performed by clean technique on the left anticubitus. Total of 1 attempts were made. Slight pressure and a bandage/dressing were applied to the site(s). The patient experienced no complications. The following specimens were processed according to instructions and sent to [facility] laboratories per lab order on 01/26/2024 : LT BLUE SST 3 RED LAV 1 PPT DK GREEN (LiHep) DK GREEN (SodH) SELLERS DK BLUE (K2) DK BLUE (S) ACD Blood Culture NIPT/NTD [facility] 2023-07-02 09:00:00 Images from the original note were not included. Venipuncture collection performed by clean technique on the left anticubitus. Total of 1 attempts were made. Slight pressure and a bandage/dressing were applied to the site(s). The patient experienced no complications. The following specimens were processed according to instructions and sent to [facility] laboratories per lab order on 07/02/2023: LT BLUE SST 2 RED LAV 2 PPT DK GREEN (LiHep) DK GREEN (SodH) SELLERS DK BLUE (K2) DK BLUE (S) ACD Blood Culture NIPT/NTD [facility]
[2024-03-08] MEDS ORDERED: NA CHLORIDE 0.9% 1,000 ML ONE (23:44)
[2024-03-09 00:11] LABS: Specific Gravity < 1.005 (1.005-1.030)
[2024-03-09 00:12] LABS: Specific Gravity < 1.005 (1.005-1.030); Sqamous Epithelial None Seen /HPF (None Seen); Urine Bacteria None Seen /HPF (<20); Urine Bilirubin NEGATIVE (Negative); Urine Blood Negative (Negative); Urine Clarity Clear (Clear); Urine Color Colorless (Yellow); Urine Culture Reflex Order NOT NEEDED; Urine Glucose NEGATIVE (Negative); Urine Ketones NEGATIVE (Negative); Urine Microscopic Reflex YN ORDER UMIC; Urine Nitrite NEGATIVE (Negative); Urine Protein NEGATIVE (Negative); Urine RBC None Seen /HPF (None Seen); Urine Urobilinogen Normal (Normal); Urine WBC None Seen /HPF (<5)
[2024-03-09 00:13] LABS: Absolute Eosinophils 0.1 K/uL (0-0.5); Absolute Lymphocytes (CBC) 2.1 K/uL (0.7-4.9); Absolute Monocytes 0.5 K/uL (0.1-1.3); Absolute Neutrophil 3.5 K/uL (1.8-8.0); Basophils % 0.4 % (0-1.3); Hemoglobin 11.2 g/dL (12.0-15.0); Lymphocytes % 33.4 % (15.3-44.8); MCH 27.5 pg (27.0-35.0); MCV 83.3 fL (80-100); Monocytes % 7.5 % (3.3-12.3); Neutrophils % 56.7 % (41.7-73.7); Platelets 205 thou/uL (152-406); RBC Red Blood Cell Count 4.08 M/uL (3.86-4.86); Red Cell Distribution Width 13.2 % (12.1-15.2)
[2024-03-09 00:23] LABS: ALT/SGPT 16 U/L (13-56); Albumin 3.5 g/dL (3.4-5.0); Albumin/Globulin Ratio 1.1 (1.1-1.8); Alkaline Phosphatase 66 U/L (45-117); BUN Blood Urea Nitrogen 15 mg/dL (7-18); Bicarbonate 29 mEq/L (21-32); Bilirubin Total 0.2 mg/dL (0.2-1.0); Creatine Phosphokinase 56 U/L (26-192); Globulin 3.2 g/dL (2.3-3.5); Glomerular Filtration Rate 71 ml/min (=/>90); Glucose Level 94 mg/dL (74-106); Protein, Total 6.7 g/dL (6.4-8.2); Sodium Level 138 mEq/L (136-145)
[2024-03-09 00:26] LABS: AST/SGOT < 10 U/L (15-37); Troponin High Sensitivity < 3.0 pg/mL (<58.9)
--- NOTE | 2024-03-09 00:30 | ER ---
Nurse's Notes [facility] Name: Enid Kent Age: 38 yrs Sex: Female : 1985 Arrival Date: 03/08/2024 Time: 23:03 Bed 20 Private MD: Diagnosis: Person with feared health complaint in whom no diagnosis is made Presentation: 03/08 23:09 Chief complaint: Patient states: I FEEL VERY FATIGUE, ACHY, AND MY URINE IS YELLOW ha1 AFTER WORKING OUT. 23:09 Coronavirus screen: Vaccine status: At this time, the client does not indicate any ha1 symptoms associated with coronavirus-19. Ebola Screen: No symptoms or risks identified at this time. Initial Sepsis Screen: Does the patient meet any 2 criteria? No. Patient's initial sepsis screen is negative. Does the patient have a suspected source of infection? No. Patient's initial sepsis screen is negative. Risk Assessment: Do you want to hurt yourself or someone else? Patient reports no desire to harm self or others. Onset of symptoms was March 08, 2024. 23:09 Method Of Arrival: Ambulatory ha1 23:09 Acuity: ONEIL 3 ha1 Triage Assessment: 03/09 00:15 General: Appears in no apparent distress. kj2 01:09 Pain: Denies pain. kj2 DAM TENDER: 01:11 LMP 03/09/2024, unknown kj2 Historical: - Allergies: 03/08 23:20 No Known Allergies; ha1 - Home Meds: 23:20 None [Active]; ha1 - PSHx: 23:20 Ovary removal; ha1 - Immunization history:: Adult Immunizations up to date. - Infectious Disease History:: Denies. - Social history:: Smoking status: Patient denies any tobacco usage or history of. Screenin:15 [facility] ED Fall Risk Assessment (Adult) History of falling in the last 3 months, kj2 including since admission No falls in past 3 months (0 pts) Confusion or Disorientation No (0 pts) Intoxicated or Sedated No (0 pts) Impaired Gait No (0 pts) Mobility Assist Device Used No (0 pt) Altered Elimination No (0 pt) Score/Fall Risk Level 0 - 2 = Low Risk Maintained a safe environment, Hourly rounding (assess needs \T\ fall precautionary measures) done. Tuberculosis screening: No symptoms or risk factors identified. 23:20 Abuse screen: Denies threats or abuse. Denies injuries from another. Nutritional ha1 screening: No deficits noted. Assessment: 23:15 General: Appears in no apparent distress. Behavior is calm, cooperative. Neuro: Level kj2 of Consciousness is awake, alert, obeys commands, Oriented to person, place, time, situation. Cardiovascular: Patient's skin is warm and dry. Respiratory: Airway is patent Respiratory effort is even, unlabored. GI: No signs and/or symptoms were reported involving the gastrointestinal system. : Reports urine very dark. 03/09 00:10 Reassessment: Patient appears in no apparent distress at this time. Patient and/or kj2 family updated on plan of care and expected duration. Pain level reassessed. Patient is alert, oriented x 3, equal unlabored respirations, skin warm/dry/pink. Vital Signs: 03/08 23:09 BP 150 / 86; Pulse 73; Resp 16 S; Temp 97.6(T); Pulse Ox 99% on R/A; Weight 77.11 kg; ha1 Height 5 ft. 2 in. ; 23:20 BP 125 / 79; Pulse 74; Resp 18; Temp 98; Pulse Ox 100% ; kj2 11 00:10 BP 122 / 76; Pulse 73; Pulse Ox 98% on R/A; kj2 01:11 BP 125 / 78; Pulse 76; Resp 20; Temp 98; Pulse Ox 100% on R/A; kj2 03/08 23:09 Body Mass Index 31.09 (77.11 kg, 157.48 cm) [facility] ED Course: 03/08 23:06 Patient arrived in ED. im 23:09 Sheryl Maya FNP-C [facility]. kb 23:09 Abram Travis MD is Attending Physician. kb 23:15 Provided Education on: call light. kj2 23:19 Triage completed. ha1 23:32 Mya Hoang, ERNESTO is Primary Nurse. kj2 23:58 Test, Urine Sent. kj2 23:58 Urinalysis w/ reflexes Sent. kj2 23:58 Inserted saline lock: 20 gauge in left antecubital area, using aseptic technique. Blood kj2 collected. Flushed with 10 mL NS. 03/09 00:07 Patient has correct armband on for positive identification. Bed in low position. Call kj2 light in reach. 00:09 Arm band placed on Patient placed in an exam room. kj2 00:10 No provider procedures requiring assistance completed. kj2 01:12 IV discontinued, intact, bleeding controlled, No redness/swelling at site. Pressure kj2 dressing applied. Administered Medications: 03/08 23:48 Drug: NS 0.9% IV 1000 ml IV at 1000 ml once; to be given as a bolus over 60 minutes kj2 Route: IV; Rate: 1000 ml; Site: left antecubital; 03/09 00:48 Follow up: Response: No adverse reaction; IV Status: Completed infusion; IV Intake: kj2 1000ml Medication: 00:10 VIS not applicable for this client. kj2 Intake: 00:48 IV: 1000ml; Total: 1000ml. kj2 Outcome: 00:29 Discharge ordered by . kb 01:11 Discharged to home ambulatory, kj2 01:11 Condition: stable 01:11 Discharge instructions given to patient, Instructed on discharge instructions, follow up and referral plans. Demonstrated understanding of instructions, follow-up care, 01:15 Patient left the ED. kj2 Signatures: Sheryl Maya, JAMIL-C JAMIL-Salud Cooper, RN RN ha1 Petty Russell Krystal, RN RN kj2
--- NOTE | 2024-03-09 00:30 | EDPHYS ---
Physician Documentation [facility] Name: Enid Kent Age: 38 yrs Sex: Female : 1985 Arrival Date: 03/08/2024 Time: 23:03 Bed 20 Private MD: ED Physician Abram Travis HPI: 03/08 23:15 This 38 yrs old Female presents to ER via Unassigned with complaints of kb Fatigue, Urinary Problem. 23:15 Pt is a 38 year old female who presents for increased thirst, fatigue, cloudy urine kb that started this morning. States she had rhabdomyolysis one month ago and feels like she has it again. Denies abd pain, fever. . 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 - Infectious Disease History:: Denies. - Social history:: Smoking status: Patient denies any tobacco usage or history of. ROS: 23:15 Constitutional: As per HPI kb Exam: 23:15 Constitutional: This is a well developed, well nourished patient who is awake, alert, kb and in no acute distress. Head/Face: Normocephalic, atraumatic. ENT: Moist Mucous membranes Cardiovascular: Regular rate Respiratory: Respirations even and unlabored. No increased work of breathing. Talking in full sentences Abdomen/GI: Soft, non-tender. No distention Back: No spinal tenderness. No costovertebral tenderness. Full range of motion. Skin: Warm, dry with normal turgor. Normal color. MS/ Extremity: Pulses equal, no cyanosis. Neurovascular intact. Full, normal range of motion. Neuro: Awake and alert, GCS 15, oriented to person, place, time, and situation. Vital Signs: 23:09 BP 150 / 86; Pulse 73; Resp 16 S; Temp 97.6(T); Pulse Ox 99% on R/A; Weight 77.11 kg; ha1 Height 5 ft. 2 in. ; 23:20 BP 125 / 79; Pulse 74; Resp 18; Temp 98; Pulse Ox 100% ; kj2 03/09 00:10 BP 122 / 76; Pulse 73; Pulse Ox 98% on R/A; kj2 01:11 BP 125 / 78; Pulse 76; Resp 20; Temp 98; Pulse Ox 100% on R/A; kj2 03/08 23:09 Body Mass Index 31.09 (77.11 kg, 157.48 cm) ha1 MDM: 03/08 23:09 Medical Screening Exam initiated kb 23:15 Data reviewed: vital signs, nurses notes. kb 03/09 00:29 Differential diagnosis: uti, rhabdomyolysis, dehydration. Counseling: I had a detailed kb discussion with the patient and/or guardian regarding the historical points, exam findings, and any diagnostic results supporting the discharge/admit diagnosis, lab results, the need for outpatient follow up, a family practitioner, to return to the emergency department if symptoms worsen or persist or if there are any questions or concerns that arise at home. 00:39 ED course: pt refused EKG. kb 03/08 23:15 Order name: CBC with Diff; Complete Time: 00:19 kb 03/08 23:15 Order name: Troponin HS; Complete Time: 00:27 kb 03/08 23:15 Order name: CMP; Complete Time: 00:27 kb 03/08 23:15 Order name: CPK; Complete Time: 00:27 kb 03/08 23:15 Order name: Test, Urine; Complete Time: 00:14 kb 03/08 23:15 Order name: Urinalysis w/ reflexes; Complete Time: 00:14 kb 03/08 23:15 Order name: Cardiac monitoring; Complete Time: 00:49 kb 03/08 23:15 Order name: EKG - Nurse/Tech; Complete Time: 00:49 kb 03/08 23:15 Order name: IV Saline Lock; Complete Time: 23:58 kb 03/08 23:15 Order name: Labs collected and sent; Complete Time: 23:58 kb 03/08 23:15 Order name: O2 Per Protocol; Complete Time: 23:58 kb 03/08 23:15 Order name: O2 Sat Monitoring; Complete Time: 00:17 kb Administered Medications: 03/08 23:48 Drug: NS 0.9% IV 1000 ml IV at 1000 ml once; to be given as a bolus over 60 minutes kj2 Route: IV; Rate: 1000 ml; Site: left antecubital; 03/09 00:48 Follow up: Response: No adverse reaction; IV Status: Completed infusion; IV Intake: kj2 1000ml Disposition Summary: 03/09/24 00:29 Discharge Ordered Notes: Location: Home kb Condition: Stable kb Diagnosis - Person with feared health complaint in whom no diagnosis is made kb Followup: kb - With: Emergency Department - When: As needed - Reason: Worsening of condition Followup: kb - With: Private Physician - When: 2 - 3 days - Reason: Recheck today's complaints, Continuance of care, Re-evaluation by your physician Forms: - Medication Reconciliation Form kb - Antibiotic Education kb - Prescription Opioid Use kb - Patient Portal Instructions kb - Leadership Thank You Letter kb Addendum: 03/10/2024 04:31 Co-signature as Attending Physician, Abram Travis MD I agree with the assessment s p4 and plan of care. I reviewed the patient's care provided by the Advanced Practice Provider and agree with the diagnosis and treatment plan. Signatures: Dispatcher [employer] EDSheryl Collins, OBSTETRICS NURSE-C OBSTETRICS NURSE-Salud Cooper, RN RN ha1 Abram Travis MD MD sp4 Mya Hoang, ERNESTO RN kj2 Corrections: (The following items were deleted from the chart) 03/08 23:15 23:15 CBC+H.LAB.BRZ ordered. EDMS EDMS 23:15 23:15 Troponin High Sensitivity+C.LAB.BRZ ordered. EDMS EDMS 23:15 23:15 COMPREHENSIVE METABOLIC PANEL+C.LAB.BRZ ordered. EDMS EDMS 23:15 23:15 CREATINE PHOSPHOKINASE+C.LAB.BRZ ordered. EDMS EDMS 23:15 23:15 Test, Urine+UC.LAB.BRZ ordered. EDMS EDMS 23:15 23:15 Urinalysis+U.LAB.BRZ ordered. EDMS EDMS
[2024-03-09 03:05] VITALS: BP 125/78; TEMP 98; O2SAT 100
== END 2024-03-09 01:15 | disposition home or self-care (01) ==
LOC: ER 23:03
DX: Z71.1 Person with feared health complaint in whom no diagnosis is made (principal)
CPT/HCPCS: 85025; 81001; 36415; 82550; 81025; 84484; 80053; J7030